=== PATIENT | male | born 1945 | race Caucasian/White ===

== ENCOUNTER → 2017-01-16 | Outpatient (CLI) | payer MEDICARE, BC ==
[2017-01-16 08:35] LABS: CHLORIDE,CL 104 mmol/L (98-110); SODIUM,NA 142 mmol/L (136-146)
== END ==
LOC: MW.CHFP 07:40
PROVIDERS: ATTEND Student in an Organized Health Care Education/Training Program
DX: I10 Essential (primary) hypertension (principal); E78.00 Pure hypercholesterolemia, unspecified; M89.662 Osteopathy after poliomyelitis, left lower leg; B91 Sequelae of poliomyelitis
CPT/HCPCS: 36415; 80053; 80061; 99214

== ENCOUNTER 2018-04-21 06:39 | Inpatient (IN) | payer MEDICARE, BC ==
[2018-04-21] MEDS ORDERED: Midazolam 1 MG/ML 2 ML SDV ONE (07:23)
[2018-04-21] MEDS ORDERED: Lidocaine 2% 5 ML SDV ONE (07:23)
[2018-04-21] MEDS ORDERED: Propofol 200 MG/20 ML SDV ONE (07:23)
[2018-04-21] MEDS ORDERED: fentaNYL 250 MCG/5 ML SDV ONE (07:24)
[2018-04-21] MEDS ORDERED: Sugammadex Sodium 200 MG/2 ML VIAL ONE (07:33)
[2018-04-21] MEDS ORDERED: Ondansetron 4 MG/2 ML SDV ONE (07:36)
[2018-04-21] MEDS ORDERED: Rocuronium 10 MG/ML 10 ML Syringe ONE (07:36)
[2018-04-21] MEDS: Lactated Ringers 1,000 ML IV SCH ×3 (07:36→19:22)
--- NOTE | 2018-04-21 07:37 | PCM.PREANE ---
Preanesthetic Assessment - Anesthesia/Transfusion/Family Hx Anesthesia History: Prior Anesthesia Without Reaction Family History of Anesthesia Reaction: No Transfusion History: No Prior Transfusion(s) Intubation History: Unknown - Review of Systems General: No Symptoms Pulmonary: No Symptoms Cardiovascular: No Symptoms Gastrointestinal: No Symptoms Neurological: No Symptoms Other: Reports: None - Physical Assessment Height: 1.68 m Weight: 102.058 kg ASA Class: 2 Mental Status: Alert & Oriented x3 Airway Class: Mallampati = 2 Dentition: Reports: Dentures (upper and lower) Thyro-Mental Finger Breadths: 3 Mouth Opening Finger Breadths: 3 ROM/Head Extension: Limited/Partial Lungs: Clear to Auscultation, Normal Respiratory Effort Cardiovascular: Regular Rate, Regular Rhythm - Allergies Allergies/Adverse Reactions: Allergies Allergy/AdvReac Type Severity Reaction Status Date / Time No Known Allergies Allergy Verified 04/19/18 11:01 - Blood Blood Available: No - Anesthesia Plan Pre-Op Medication Ordered: None - Acknowledgements Anesthesia Type Planned: Spinal (with general anesthesia) Pt an Appropriate Candidate for the Planned Anesthesia: Yes Alternatives and Risks of Anesthesia Discussed w Pt/Guardian: Yes Pt/Guardian Understands and Agrees with Anesthesia Plan: Yes PreAnesthesia Questionnaire HEENT History: Reports: Other (See Below) Other HEENT History: wears glasses, has dentures but does not wear them Cardiovascular History: Reports: High Cholesterol, Hypertension Respiratory History: Reports: Other (See Below) Other Respiratory History: 60 yr hx of smoking, currently smokes 1 pack of cigarettes per day Gastrointestinal History: Reports: None Musculoskeletal History: Reports: Arthritis, Fracture Other Musculoskeletal History: hx fx rt ankle Neurological History: Reports: Other (See Below) (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, 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) Endocrine/Metabolic History: Reports: Obesity/BMI 30+ - Past Surgical History Head Surgeries/Procedures: Reports: None GI Surgical History: Reports: Appendectomy Neurological Surgical History: Reports: C-Spine Other Neurological Surgeries/Procedures: hx neck surgery Musculoskeletal Surgical History: Reports: Other (See Below) Other Musculoskeletal Surgeries/Procedures:: hx left knee surgery - SUBSTANCE USE Smoking Status *Q: Current Every Day Smoker (1 ppd) Tobacco Use Within Last Twelve Months: Cigarettes Recreational Drug Use History: No - HOME MEDS Home Medications: Home Meds Acetaminophen with Codeine [Acetaminophen-Cod #4] 1 - 2 tab PO ASDIRECTED PRN [History] Aspirin [[place] Aspirin] 81 mg PO DAILY 04/19/18 [History] Celecoxib 1 tab PO DAILY 04/19/18 [History] Enalapril/Hydrochlorothiazide [Enalapril-HCTZ 10-25 MG] 1 tab PO DAILY 04/19/18 [History] Multivitamin [Multivitamins] 1 tab PO DAILY 04/19/18 [History] Simvastatin [Zocor] 40 mg PO DAILY 04/19/18 [History] - CURRENT (IN HOUSE) MEDS Current Meds: Current Medications Lactated Ringer's (Ringers, Lactated) 1,000 mls @ 125 mls/hr IV ASDIRECTED [facility] Cefazolin Sodium/Dextrose 2 gm (/ Premix) 50 mls @ 50 mls/hr IV ONETIME [facility] Tranexamic Acid (Cyklokapron) 2,000 mg IV ONETIME ONE Stop: 04/21/18 08:01 Discontinued Medications Fentanyl (Sublimaze) Confirm Administered Dose 250 mcg .ROUTE .STK-MED ONE Stop: 04/21/18 07:25 Lidocaine (Xylocaine-Mpf 2%) Confirm Administered Dose 10 ml .ROUTE .STK-MED ONE Stop: 04/21/18 07:24 Midazolam HCl (Versed 1 Mg/Ml) Confirm Administered Dose 2 mg .ROUTE .STK-MED ONE Stop: 04/21/18 07:24 Propofol (Diprivan 20 Ml) Confirm Administered Dose 400 mg .ROUTE .STK-MED ONE Stop: 04/21/18 07:24 Tranexamic Acid (Cyklokapron) Confirm Administered Dose 2,000 mg .ROUTE .STK- MED ONE Stop: 04/21/18 07:24
[2018-04-21] MEDS ORDERED: ePHEDrine 50 MG/ML SDV ONE ×2 (08:37→10:53)
[2018-04-21] MEDS ORDERED: fentaNYL 100 MCG/2 ML SDV IVPUSH PRN (08:49)
[2018-04-21] MEDS ORDERED: ceFAZolin/Dextrose,Iso-Osmotic 2 GM/50 ML Duplex Bag IV ONE (08:58)
--- NOTE | 2018-04-21 09:27 | PCM.OPNOTE ---
- General Post-Op/Procedure Note Date of Surgery/Procedure: 04/21/18 Operative Procedure(s): left anterior total hip arthroplasty Findings: severe OA Pre Op Diagnosis: left hip osteoarthritis Post-Op Diagnosis: same Anesthesia Technique: General ET Tube, Spinal Primary Surgeon: Jaime Garcia Mai Manager Medicare: Elke Sheriff Pathology: femoral head EBL in mLs: 400 Complications: none Condition: Good
[2018-04-21] MEDS ORDERED: Bisacodyl 10 MG Supp RECTAL PRN (09:44)
[2018-04-21] MEDS ORDERED: Ondansetron 4 MG/2 ML SDV IV PRN (09:44)
[2018-04-21] MEDS ORDERED: Dermabond Prineo 1 Tube TOP ONE (11:07)
[2018-04-21] MEDS ORDERED: Glycopyrrolate 0.2 MG/ML SDV ONE (11:10)
[2018-04-21] MEDS: Acetaminophen/HYDROcodone 325-5 MG Tab PO PRN ×3 (12:30→22:27)
--- NOTE | 2018-04-21 13:14 | OR ---
SURGEON: Jaime Carroll MD DATE OF PROCEDURE: 04/21/2018 MACHINERY MOVER: Elke Sheriff PA-C. PREOPERATIVE DIAGNOSIS: Left hip osteoarthritis. POSTOPERATIVE DIAGNOSIS: Left hip osteoarthritis. OPERATION PERFORMED: Left anterior total hip arthroplasty. ANESTHESIA: Spinal and general. COMPLICATION: None. ESTIMATED BLOOD LOSS: 400 mL. SPECIMENS: Femoral head. IMPLANTS: Tan Continuum trabecular metal shell with cluster holes, 56 mm outer diameter; one 6.5 x 30 mm bone screw, Vivacit-E neutral liner 36 mm inner diameter, Avenir Ribeiro stem standard size 5, Biolox delta ceramic femoral head 36 mm diameter, 0 neck length. 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 He wished to undergo total hip replacement. He understands the risks, benefits, and complications to include but not limited to infection, neurovascular injury, continued pain, DVT, PE, stroke, UT, , leg-length discrepancy, fracture, dislocation, he wished to proceed. His left leg is due to previous surgery on the knee, much shorter than the right leg and he wished to have it lengthened. This will be done under a safe amounts. PROCEDURE IN DETAIL: The patient was seen in preop area, operative extremity was marked. The patient was transferred to the operating room. Spinal anesthetic was given. He was placed supine on the Delgado table. General anesthesia was induced. Endotracheal tube was placed. He received preop antibiotics with Ancef. He also received 2 g of TXA. Legs were placed in the leg bars with a narrow perineal post. Left hip was prepped and draped in sterile fashion using alcohol followed by ChloraPrep with Ioban covering. A formal time-out was taken, identifying the correct patient, procedure, and extremity. A 10-cm incision starting lateral to the ASIS going obliquely down to the femur was made. Dissection carried down to subcutaneous tissues. Hemostasis was obtained. The fascia overlying the TFL lateral to the lateral femoral cutaneous nerve was opened and the interval between the TFL and sartorius, deep between abductors and rectus was opened. A deep Rene retractor was placed. The vastus lateralis fascia was opened and the anterior vessels were coagulated. The capsule was held and tagged with suture and then deep retractor was placed. Neck was cut from saddle region 1 cm above lesser trochanter and the head was removed. He had severe arthritis with complete obliteration of joint space. Inferior capsule was released preserving the iliopsoas tendon and the labral remnants were removed. There was no Pulvinar remaining. The head measured about 51, it was sequentially reamed from a 51 up to 55 mm going slightly superior medial to get good fit and fill. There was excellent fill. The bed was planed to make sure it was level. Then Continuum trabecular metal shell with cluster holes was placed in 10 degrees of anteversion and 45 degrees of abduction. It had excellent press fit. One straight superior bone screw was placed 30 mm after drilling. The wound was irrigated and dried out. The neutral liner was impacted. Leg was then externally rotated, abducted, and extended after placing the femoral lift. Superior capsule, obturator internus, and piriformis were released. Central canal finder was utilized and the hip was sequentially broached from 0 up to size 5 following the [place] version. It was trial reduced with 0 neck length. This showed the hip to be at least 1 cm longer by design to shorten his leg length and offset looked good. Due to deformity of the pelvis, printed overlay technique was not utilized. It was then dislocated after it was ranged. It was stable to range of motion with no dislocation in any position. Hip displaced in same position, the trial components were utilized and wound was irrigated. Avenir Ribeiro stem standard size 5 was impacted following the [place] version. It went down to almost the same spot as the trial and then after cleaning the Nevarez taper, the ceramic head was impacted 0 neck length. Hip was then reduced. Two tag sutures were tied together. The fascia was closed with #1 Vicryl, subcutaneous tissues with 2-0 Stratafix, skin with running 4-0 Monocryl. Dermabond tape and Aquacel dressing were placed. The patient was extubated in the operating room, transferred to the recovery in stable condition. Sponge and needle counts correct at the end of case. No complications. He will be allowed weightbearing as tolerated with aspirin for DVT prophylaxis. JULISSA BALDERAS /[id number]
[2018-04-21] MEDS: HYDROmorphone 1 MG/ML Syringe IVPUSH PRN ×2 (15:25→21:34)
[2018-04-21] MEDS: ceFAZolin 2 GM in Premix Bag 1 BAG IV SCH ×3 (15:33→23:36)
--- NOTE | 2018-04-21 16:17 | CR ---
EXAMINATION: Left hip HISTORY: Arthroplasty COMPARISON: 04/19/2018 TECHNIQUE: Single view FINDINGS/IMPRESSION: Operative control films demonstrates left total hip hardware in adequate positio n and alignment.
[2018-04-21] MEDS: Hydrochlorothiazide 25 MG Tab PO SCH (17:26)
[2018-04-21] MEDS: Docusate Sodium 100 MG Cap PO SCH (21:56)
[2018-04-21] MEDS ORDERED: Ketorolac 15 MG/ML SDV IVPUSH PRN (23:06)
[2018-04-22] MEDS: ceFAZolin 2 GM in Premix Bag 1 BAG IV SCH (01:23)
[2018-04-22] MEDS: Acetaminophen/HYDROcodone 325-5 MG Tab PO PRN ×2 (03:40→09:00)
[2018-04-22] MEDS: Lactated Ringers 1,000 ML IV SCH (03:44)
[2018-04-22] MEDS: HYDROmorphone 1 MG/ML Syringe IVPUSH PRN (06:47)
[2018-04-22] MEDS ORDERED: Sodium Chloride 0.9% 10 ML Syringe FLUSH PRN (06:56)
[2018-04-22] MEDS ORDERED: Sodium Chloride 0.9% 2.5 ML Syringe FLUSH PRN (06:56)
--- NOTE | 2018-04-22 06:59 | PCM.SN ---
- Free Text/Narrative Note: Subjective: Patient is doing well and he has been up numerous times. He is tolerating by mouth. His pain is controlled. No other questions. Objective: Afebrile, vital signs stable Left hip dressing clean/dry/intact with some swelling in the thigh and normal amount for him distally. There is no drainage. He has normal sensation and motor distally with palpable pulses Hgb 11.0 Assessment/plan: Postoperative day #1 left hip replacement - Weightbearing as tolerated with his normal crutches, physical therapy - Ecotrin for DVT prophylaxis - To home today.
--- NOTE | 2018-04-22 07:02 | PCM48HPAN ---
Post Anesthesia Note - EVALUATION WITHIN 48HRS OF ANESTHETIC Vital Signs in Normal Range: Yes Patient Participated in Evaluation: Yes Respiratory Function Stable: Yes Airway Patent: Yes Cardiovascular Function Stable: Yes Hydration Status Stable: Yes Pain Control Satisfactory: Yes Nausea and Vomiting Control Satisfactory: Yes Mental Status Recovered: Yes Resp Rate: 20 Blood Pressure: 144/83
--- NOTE | 2018-04-22 07:08 | PCM.DCSUM1 ---
Discharge Summary - Hospital Course Brief History: Patient is admitted for elective left total hip arthroplasty Diagnosis: Stroke: No - Discharge Data Discharge Date: 04/22/18 Discharge Disposition: Home, Self-Care 01 Condition: Good - Patient Summary/Data Operative Procedure(s) Performed: left anterior total hip arthroplasty Consults: Consultations 04/21/18 09:42 PT Evaluation and Treatment [CONS] Routine Hospital Course: Patient was admitted and underwent uneventful total hip arthroplasty. Postoperatively he was admitted to the floor underwent physical therapy with weightbearing as tolerated. Pain was controlled and his diet was advanced he did well and was subsequently discharged home on postoperative day #1 - Patient Instructions Diet: Usual Diet as Tolerated Activity: Apply Ice, Full Weight Bearing Driving: Do Not Drive Showering/Bathing: February Shower Wound/Incision Care: Do NOT Change Dressing Notify Provider of: Fever, Swelling and Redness, Drainage - Discharge Plan Home Medications: Home Meds Acetaminophen with Codeine [Acetaminophen-Cod #4] 1 - 2 tab PO ASDIRECTED PRN [History] Aspirin [[place] Aspirin] 81 mg PO DAILY 04/19/18 [History] Celecoxib 1 tab PO DAILY 04/19/18 [History] Enalapril/Hydrochlorothiazide [Enalapril-HCTZ 10-25 MG] 1 tab PO DAILY 04/19/18 [History] Multivitamin [Multivitamins] 1 tab PO DAILY 04/19/18 [History] Simvastatin [Zocor] 40 mg PO DAILY 04/19/18 [History] Patient Handouts: Acetaminophen; Hydrocodone tablets or capsules, Aspirin, ASA oral tablets, Total Hip Replacement, Care After, [id number] Referrals: Elke Sheriff PA [Physician Wheel [employer]orer] - 05/04/18 10:00 am - Discharge Summary/Plan Comment DC Time >30 min.: No - Patient Data Vitals - Most Recent: Last Vital Signs Temp 36.2 C 04/22/18 05:36 Pulse 98 04/22/18 05:36 Resp 20 04/22/18 07:02 BP 144/83 H 04/22/18 07:02 Pulse Ox 90 L 04/22/18 05:36 Weight - Most Recent: 102.058 kg I&O - Last 24 hours: Intake & Output 04/21/18 04/22/18 04/22/18 22:59 06:59 14:59 Intake Total 1642 2290 Output Total 0 1020 Balance 1642 1270 Lab Results - Last 24 hrs: Laboratory Results - last 24 hr 04/21/18 04/22/18 Range/Units 07:23 05:13 Hgb 11.0 L (13.0-17.0) g/dL Hct 33.8 L (38.0-50.0) % Blood Type A POSITIVE Antibody Screen NEGATIVE Med Orders - Current: Current Medications Hydrocodone Bitart/Acetaminophen ([place] 325-5 Mg) 1 - 2 tab PO Q4H PRN PRN Reason: Pain Last Admin: 04/22/18 03:40 Dose: 2 tab Aspirin (Ecotrin) 325 mg PO BID [facility] Bisacodyl (Dulcolax) 10 mg RECTAL DAILY PRN PRN Reason: Constipation Celecoxib (Celebrex) 200 mg PO DAILY [facility] Docusate Sodium (Colace) 100 mg PO BID [facility] Last Admin: 04/21/18 21:56 Dose: 100 mg Enalapril Maleate (Vasotec) 10 mg PO DAILY [facility] Last Admin: 04/21/18 17:26 Dose: 10 mg Fentanyl (Sublimaze) 50 mcg IVPUSH Q5M PRN PRN Reason: Pain (severe 7-10) Stop: 04/22/18 08:49 Hydrochlorothiazide (Hydrochlorothiazide) 25 mg PO DAILY [facility] Hydrochlorothiazide (Hydrochlorothiazide) 25 mg PO DAILY [facility] Last Admin: 04/21/18 17:26 Dose: 25 mg Hydromorphone HCl (Dilaudid) 0.5 - 1 mg IVPUSH Q3H PRN PRN Reason: Pain Last Admin: 04/22/18 06:47 Dose: 1 mg Lactated Ringer's (Ringers, Lactated) 1,000 mls @ 125 mls/hr IV ASDIRECTED [facility] Last Admin: 04/22/18 03:44 Dose: 125 mls/hr Cefazolin Sodium/Dextrose 2 gm (/ Premix) 50 mls @ 50 mls/hr IV ONETIME [facility] Last Infusion: 04/22/18 00:10 Dose: Infused Ketorolac Tromethamine (Toradol) 30 mg IVPUSH Q8H PRN PRN Reason: Pain Stop: 04/26/18 23:06 Last Admin: 04/21/18 23:32 Dose: 30 mg Multivitamins/Minerals (Thera M Plus) 1 tab PO DAILY [facility] Ondansetron HCl (Zofran) 4 mg IV Q6HR PRN PRN Reason: NAUSEA/VOMITING Simvastatin (Zocor) 40 mg PO BEDTIME [facility] Sodium Chloride (Saline Flush) 10 ml FLUSH ASDIRECTED PRN PRN Reason: Keep Vein Open Sodium Chloride (Saline Flush) 2.5 ml FLUSH ASDIRECTED PRN PRN Reason: Keep Vein Open Discontinued Medications Cefazolin Sodium/Dextrose (Ancef) Confirm Administered Dose 2 gm IV .STK-MED ONE Stop: 04/21/18 08:59 Enalapril Maleate (Vasotec) 10 mg PO DAILY [facility] Ephedrine Sulfate (Ephedrine Sulfate) Confirm Administered Dose 50 mg .ROUTE .STK-MED ONE Stop: 04/21/18 08:38 Ephedrine Sulfate (Ephedrine Sulfate) Confirm Administered Dose 50 mg .ROUTE .STK-MED ONE Stop: 04/21/18 10:54 Fentanyl (Sublimaze) Confirm Administered Dose 250 mcg .ROUTE .STK-MED ONE Stop: 04/21/18 07:25 Glycopyrrolate (Robinul) Confirm Administered Dose 0.2 mg .ROUTE .STK-MED ONE Stop: 04/21/18 11:11 Cefazolin Sodium/Dextrose 2 gm (/ Premix) 50 mls @ 100 mls/hr IV Q8H [facility] Stop: 04/22/18 00:29 Last Admin: 04/22/18 01:23 Dose: Not Given Lidocaine (Xylocaine-Mpf 2%) Confirm Administered Dose 10 ml .ROUTE .STK-MED ONE Stop: 04/21/18 07:24 Midazolam HCl (Versed 1 Mg/Ml) Confirm Administered Dose 2 mg .ROUTE .STK-MED ONE Stop: 04/21/18 07:24 Octyl Cyanoacrylate (Dermabond Prineo) 1 applic TOP .STK-MED ONE Stop: 04/21/18 11:08 Ondansetron HCl (Zofran) Confirm Administered Dose 4 mg .ROUTE .STK-MED ONE Stop: 04/21/18 07:37 Propofol (Diprivan 20 Ml) Confirm Administered Dose 400 mg .ROUTE .STK-MED ONE Stop: 04/21/18 07:24 Rocuronium [place] (Zemuron) Confirm Administered Dose 100 mg .ROUTE .STK-MED ONE Stop: 04/21/18 07:37 Sugammadex Sodium ([place]) Confirm Administered Dose 200 mg .ROUTE .STK-MED ONE Stop: 04/21/18 07:34 Tranexamic Acid (Cyklokapron) 2,000 mg IV ONETIME ONE Stop: 04/21/18 08:01 Last Admin: 04/21/18 10:41 Dose: Not Given Tranexamic Acid (Cyklokapron) Confirm Administered Dose 2,000 mg .ROUTE .STK- MED ONE Stop: 04/21/18 07:24
[2018-04-22 08:52] VITALS: BP 151/64
[2018-04-22] MEDS: Docusate Sodium 100 MG Cap PO SCH (08:55)
[2018-04-22] MEDS: Hydrochlorothiazide 25 MG Tab PO SCH (08:55)
[2018-04-22] MEDS ORDERED: Hydrochlorothiazide 25 MG Tab PO SCH (09:00)
[2018-04-22] MEDS ORDERED: Celecoxib 100 MG Cap PO SCH (09:00)
[2018-04-22] MEDS ORDERED: Aspirin 325 MG Tab.EC PO SCH (09:00)
[2018-04-22] MEDS ORDERED: Multivitamins with Iron/Calcium/Folic Acid/Minerals Tab PO SCH (09:00)
[2018-04-22] MEDS ORDERED: Simvastatin 40 MG Tab PO SCH (21:00)
== END 2018-04-22 10:46 | disposition home or self-care (01) | DRG 470 ==
LOC: MW.MS 06:39
PROVIDERS: ADMIT Orthopaedic Surgery; ATTEND Orthopaedic Surgery
PROC: 0SRB0JA Replacement of Left Hip Joint with Synthetic Substitute, Uncemented, Open Approach (ICD-10-PCS; principal; 2018-04-21)
DX: M16.12 Unilateral primary osteoarthritis, left hip (principal); I10 Essential (primary) hypertension; E78.00 Pure hypercholesterolemia, unspecified; M89.662 Osteopathy after poliomyelitis, left lower leg; M89.661 Osteopathy after poliomyelitis, right lower leg; B91 Sequelae of poliomyelitis; F17.210 Nicotine dependence, cigarettes, uncomplicated; Z79.899 Other long term (current) drug therapy
CPT/HCPCS: 36415; 76000; 76000-26; 85014; 85018; 86850; 86900; 86901; 97110-GP; 97162-GP; A9270-GY; C1713; C1776; J0690; J1170; J1885; J2250; J2405; J2704; J3010; J3490; J7120

== ENCOUNTER 2019-06-17 20:22 | Observation (INO) | payer MEDICARE, BC ==
[2019-06-17] MEDS ORDERED: Aspirin 81 MG Tab.Chew ONE (20:28)
[2019-06-17] MEDS ORDERED: Sodium Chloride 0.9% 2.5 ML Syringe FLUSH PRN (20:29)
[2019-06-17] MEDS ORDERED: Sodium Chloride 0.9% 1,000 ML IV ONE (20:29)
[2019-06-17] MEDS ORDERED: Sodium Chloride 0.9% 10 ML Syringe FLUSH PRN (20:29)
[2019-06-17] MEDS ORDERED: Aspirin 81 MG Tab.Chew PO ONE (20:30)
--- NOTE | 2019-06-17 20:35 | EDM.PDOC ---
ED HPI GENERAL MEDICAL PROBLEM - General Chief Complaint: Chest Pain Stated Complaint: CHEST PAIN Time Seen by Provider: 06/17/19 20:29 Source of Information: Reports: Patient History Limitations: Reports: No Limitations - History of Present Illness INITIAL COMMENTS - FREE TEXT/NARRATIVE: HISTORY AND PHYSICAL: History of present illness: Patient is a 73-year-old male who presents to the ED today with concern of mid sternal chest pain approximately an hour and a half ago that it started when he was smoking a cigarette. Patient rates his chest pain an 8 out of 10 and states nothing is making it worse or better. Patient also states that he is having right upper quadrant pain that he rates a 7 out of 10. Patient states he has had 2 episodes of vomiting earlier today in relation to the abdominal pain. He states he does feel nauseous and has had a decrease in appetite today. Patient states he did have a "heart attack" when he was 35 years old but did not have a stent placed or bypass and states he was managed medically. Patient states he smokes 2-1/2 packs of cigarettes a day and has so since he was a teenager. Patient denies fever, chills, chest pain, shortness of breath, or cough. Denies headache, neck stiff ness, change in vision, syncope, or near syncope. Denies diarrhea, constipation, or dysuria. Has not noted any blood in urine or stool. Review of systems: As per history of present illness and below otherwise all systems reviewed and negative. Past medical history: As per history of present illness and as reviewed below otherwise noncontributory. Surgical history: As per history of present illness and as reviewed below otherwise noncontributory. Social history: See social history for further information Family history: As per history of present illness and as reviewed below otherwise noncontributory. Physical exam: General: Patient is alert, oriented, and in no acute distress. Patient sitting comfortably on exam table. HEENT: Atraumatic, normocephalic, pupils equal and reactive bilaterally, negative for conjunctival pallor or scleral icterus, mucous membranes moist, TMs normal bilaterally, throat clear, neck supple, nontender, trachea midline. No drooling or trismus noted. No meningeal signs. No hot potato voice noted. Lungs: Course crackles in the right lung molina, diffuse wheezing to bilateral lung molina to auscultation, breath sounds equal bilaterally, chest nontender. Heart: S1S2, regular rate and rhythm without overt murmur Abdomen: Soft, distended. Moderate pain to palpation of the right upper quadrant without guarding. Negative for masses or hepatosplenomegaly. Negative for costovertebral tenderness. Pelvis: Stable nontender. Genitourinary: Deferred. Rectal: Deferred. Skin: Intact, warm, dry. No lesions or rashes noted. Extremities: Atraumatic, negative for cords or calf pain. Neurovascular unremarkable. Neuro: Awake, alert, oriented. Cranial nerves II through XII unremarkable. Cerebellum unremarkable. Motor and sensory unremarkable throughout. Exam nonfocal. Notes: Chest pain remains an 8 out of [address] Culp consult on patient and will admit to observation. Voices understanding and is agreeable to plan of care. Denies any further questions or concerns at this time. Diagnostics: CBC, CMP, UA, EKG, troponin, lipase, chest x-ray, abdominal pelvic CT, PTT/INR, RUQ US Therapeutics: ASA, DuoNeb, Solu-Medrol, nitroglycerin, morphine azithromycin, Rocephin, Saline , Lactate, Blood cultures x 2 Impression: Community acquired pneumonia, multilobular Chest pain Gallbladder distention Plan: 1. Admit to observation to Dr. Culp. Definitive disposition and diagnosis as appropriate pending reevaluation and review of above. Middle Chest Pain Score (Numeric/FACES): 9 - Related Data Allergies Allergy/AdvReac Type Severity Reaction Status Date / Time celecoxib [From Celebrex] Allergy Rash Verified 06/17/19 23:04 Home Meds: Home Meds Aspirin [[place] Aspirin EC] 81 mg PO DAILY 04/19/18 [History] Celecoxib 1 tab PO DAILY 04/19/18 [History] Enalapril/Hydrochlorothiazide [Enalapril-HCTZ 10-25 MG] 1 tab PO DAILY 04/19/18 [History] Multivitamin [Multivitamins] 1 tab PO DAILY 04/19/18 [History] Omeprazole Magnesium [Prilosec] 2.5 mg PO BID 06/17/19 [History] Past Medical History HEENT History: Reports: Other (See Below) Other HEENT History: wears glasses, has dentures but does not wear them Cardiovascular History: Reports: High Cholesterol, Hypertension Respiratory History: Reports: Other (See Below) Other Respiratory History: 60 yr hx of smoking, currently smokes 1 pack of cigarettes per day Gastrointestinal History: Reports: None Other Gastrointestinal History: Current C-diff Musculoskeletal History: Reports: Arthritis, Fracture Other Musculoskeletal History: hx fx rt ankle Neurological History: Reports: Other (See Below) Endocrine/Metabolic History: Reports: Obesity/BMI 30+ - Infectious Disease History Infectious Disease History: Reports: Chicken Pox, Measles, Mumps - Past Surgical History Head Surgeries/Procedures: Reports: None GI Surgical History: Reports: Appendectomy Neurological Surgical History: Reports: C-Spine Other Neurological Surgeries/Procedures: hx neck surgery Musculoskeletal Surgical History: Reports: Hip Replacement, Other (See Below) Other Musculoskeletal Surgeries/Procedures:: hx left knee surgery Social & Family History - Family History Family Medical History: Noncontributory - Tobacco Use Smoking Status *Q: Current Every Day Smoker Years of Tobacco use: 60 Packs/Tins Daily: 1 - Caffeine Use Caffeine Use: Reports: Coffee - Recreational Drug Use Recreational Drug Use: No ED ROS GENERAL - Review of Systems Review Of Systems: ROS reveals no pertinent complaints other than HPI. ED EXAM, GENERAL - Physical Exam Exam: See Below (see dictation) Course - Vital Signs Last Recorded V/S: Last Vital Signs Temp 35.4 C 06/17/19 20:24 Pulse 88 06/17/19 22:35 Resp 20 06/17/19 22:35 BP 128/92 H 06/17/19 22:35 Pulse Ox 95 06/17/19 22:35 - Orders/Labs/Meds Orders: Active Orders 24 hr Category Date Time Status EKG Documentation Completion [RC] STAT Care 06/17/19 20:29 Active CULTURE BLOOD [BC] Stat Lab 06/17/19 21:44 Received CULTURE BLOOD [BC] Stat Lab 06/17/19 22:13 Received Azithromycin [Zithromax] 500 mg Med 06/17/19 21:15 Active Sodium Chloride 0.9% [Normal Saline (AdvBag)] 250 ml IV ONETIME Sodium Chloride 0.9% [Saline Flush] Med 06/17/19 20:29 Active 10 ml FLUSH ASDIRECTED PRN Sodium Chloride 0.9% [Saline Flush] Med 06/17/19 20:29 Active 2.5 ml FLUSH ASDIRECTED PRN Blood Culture x2 Reflex Set [OM.PC] Stat Oth 06/17/19 21:27 Ordered Saline Lock Insert [OM.PC] Stat Oth 06/17/19 20:29 Ordered Medication Orders Acetaminophen (Tylenol) 650 mg PO Q6H PRN PRN Reason: Pain Azithromycin 500 mg/ Sodium (Chloride) 250 mls @ 250 mls/hr IV ONETIME SYMONE Last Admin: 06/17/19 22:34 Dose: 250 mls/hr Sodium Chloride (Normal Saline) 1,000 mls @ 100 mls/hr IV ASDIRECTED SYMONE Last Admin: 06/17/19 23:45 Dose: 100 mls/hr Oxycodone HCl (Oxycodone) 5 mg PO Q4H PRN PRN Reason: Pain (moderate 4-6) Sodium Chloride (Saline Flush) 10 ml FLUSH ASDIRECTED PRN PRN Reason: Keep Vein Open Last Admin: 06/17/19 20:47 Dose: 10 ml Sodium Chloride (Saline Flush) 2.5 ml FLUSH ASDIRECTED PRN PRN Reason: Keep Vein Open Last Admin: 06/17/19 20:47 Dose: 2.5 ml Labs: Laboratory Tests 06/17/19 06/17/19 06/17/19 Range/Units 20:25 20:25 20:25 WBC 11.56 H (4.0-11.0) K/uL RBC 4.40 L (4.50-5.90) M/uL Hgb 12.9 L (13.0-17.0) g/dL Hct 39.4 (38.0-50.0) % MCV 89.5 (80.0-98.0) fL MCH 29.3 (27.0-32.0) pg MCHC 32.7 (31.0-37.0) g/dL RDW Std Deviation 51.6 (28.0-62.0) fl RDW Coeff of Ovi 16 H (11.0-15.0) % Plt Count 344 (150-400) K/uL MPV 10.70 (7.40-12.00) fL Neut % (Auto) 66.4 (48.0-80.0) % Lymph % (Auto) 24.8 (16.0-40.0) % Cherry % (Auto) 7.3 (0.0-15.0) % Eos % (Auto) 1.2 (0.0-7.0) % Baso % (Auto) 0.3 (0.0-1.5) % Neut # (Auto) 7.7 H (1.4-5.7) K/uL Lymph # (Auto) 2.9 H (0.6-2.4) K/uL Cherry # (Auto) 0.8 (0.0-0.8) K/uL Eos # (Auto) 0.1 (0.0-0.7) K/uL Baso # (Auto) 0.0 (0.0-0.1) K/uL Nucleated RBC % 0.0 /100WBC Nucleated RBCs # 0 K/uL INR 0.97 Sodium 134 L (136-148) mmol/L Potassium 3.3 L (3.5-5.1) mmol/L Chloride 96 L (98-107) mmol/L Carbon Dioxide 27.8 (21.0-32.0) mmol/L BUN 22 H (7.0-18.0) mg/dL Creatinine 1.3 (0.8-1.3) mg/dL Est Cr Clr Drug Dosing TNP Estimated GFR (MDRD) 54.1 ml/min Glucose 181 H (74-106) mg/dL Calcium 9.8 (8.5-10.1) mg/dL Total Bilirubin 0.3 (0.2-1.0) mg/dL AST 47 H (15-37) IU/L ALT 36 (14-63) IU/L Alkaline Phosphatase 117 H (46-116) U/L Troponin I < 0.050 (0.000-0.056) ng/mL Total Protein 7.2 (6.4-8.2) g/dL Albumin 3.2 L (3.4-5.0) g/dL Globulin 4.0 (2.6-4.0) g/dL Albumin/Globulin Ratio 0.8 L (0.9-1.6) Lipase (73-393) U/L 06/17/19 Range/Units 20:25 WBC (4.0-11.0) K/uL RBC (4.50-5.90) M/uL Hgb (13.0-17.0) g/dL Hct (38.0-50.0) % MCV (80.0-98.0) fL MCH (27.0-32.0) pg MCHC (31.0-37.0) g/dL RDW Std Deviation (28.0-62.0) fl RDW Coeff of Ovi (11.0-15.0) % Plt Count (150-400) K/uL MPV (7.40-12.00) fL Neut % (Auto) (48.0-80.0) % Lymph % (Auto) (16.0-40.0) % Cherry % (Auto) (0.0-15.0) % Eos % (Auto) (0.0-7.0) % Baso % (Auto) (0.0-1.5) % Neut # (Auto) (1.4-5.7) K/uL Lymph # (Auto) (0.6-2.4) K/uL Cherry # (Auto) (0.0-0.8) K/uL Eos # (Auto) (0.0-0.7) K/uL Baso # (Auto) (0.0-0.1) K/uL Nucleated RBC % /100WBC Nucleated RBCs # K/uL INR Sodium (136-148) mmol/L Potassium (3.5-5.1) mmol/L Chloride (98-107) mmol/L Carbon Dioxide (21.0-32.0) mmol/L BUN (7.0-18.0) mg/dL Creatinine (0.8-1.3) mg/dL Est Cr Clr Drug Dosing Estimated GFR (MDRD) ml/min Glucose (74-106) mg/dL Calcium (8.5-10.1) mg/dL Total Bilirubin (0.2-1.0) mg/dL AST (15-37) IU/L ALT (14-63) IU/L Alkaline Phosphatase (46-116) U/L Troponin I (0.000-0.056) ng/mL Total Protein (6.4-8.2) g/dL Albumin (3.4-5.0) g/dL Globulin (2.6-4.0) g/dL Albumin/Globulin Ratio (0.9-1.6) Lipase 162 (73-393) U/L Meds: Medications Generic Name Dose Route Start Last Admin Trade Name Justinq PRN Reason Stop Dose Admin Acetaminophen 650 mg 06/17/19 23:18 Tylenol PO Q6H PRN Pain Azithromycin 500 mg/ Sodium 250 mls @ 250 mls/hr 06/17/19 21:15 06/17/19 22: 34 Chloride IV 250 mls/hr ONETIME SYMONE Administration Sodium Chloride 1,000 mls @ 100 mls/hr 06/17/19 23:30 06/17/19 23:45 Normal Saline IV 100 mls/hr ASDIRECTED SYMONE Administration Oxycodone HCl 5 mg 06/17/19 23:19 Oxycodone PO Q4H PRN Pain (moderate 4-6) Sodium Chloride 10 ml 06/17/19 20:29 06/17/19 20:47 Saline Flush FLUSH 10 ml ASDIRECTED PRN Administration Keep Vein Open Sodium Chloride 2.5 ml 06/17/19 20:29 06/17/19 20:47 Saline Flush FLUSH 2.5 ml ASDIRECTED PRN Administration Keep Vein Open Discontinued Medications Generic Name Dose Route Start Last Admin Trade Name Justinq PRN Reason Stop Dose Admin Albuterol/Ipratropium 3 ml 06/17/19 20:52 06/17/19 20:58 Duoneb 3.0-0.5 Mg/3 Ml NEB 06/17/19 20:53 3 ml ONETIME ONE Administration Aspirin 324 mg 06/17/19 20:30 06/17/19 20:31 Aspirin PO 06/17/19 20:31 324 mg ONETIME ONE Administration Aspirin Confirm 06/17/19 20:28 06/17/19 20:32 Aspirin Administered 06/17/19 20:29 Not Given Dose 324 mg .ROUTE .STK-MED ONE Sodium Chloride 1,000 mls @ 999 mls/hr 06/17/19 20:29 06/17/19 20:39 Normal Saline IV 06/17/19 21:29 999 mls/hr .Bolus ONE Administration Ceftriaxone Sodium 1 gm/ 50 mls @ 100 mls/hr 06/17/19 21:01 06/17/19 21:07 Sodium Chloride IV 06/17/19 21:30 Not Given ONETIME ONE Ceftriaxone Sodium/Dextrose Confirm 06/17/19 21:04 06/17/19 21:07 Rocephin In Dextrose,Iso-Osm 1 Gm/50 Ml Administered 06/17/19 21:05 Not Given Dose 50 mls @ as directed .ROUTE .STK-MED ONE Ceftriaxone Sodium/Dextrose 1 50 mls @ 100 mls/hr 06/17/19 21:07 06/17/19 21: 08 gm/ Premix IV 06/17/19 21:36 100 mls/hr ONETIME ONE Administration Iopamidol 90 ml 06/17/19 21:54 06/17/19 21:55 Isovue-370 (76%) IVPUSH 06/17/19 21:55 90 ml ONETIME ONE Administration Methylprednisolone Sodium Succinate 125 mg 06/17/19 20:55 06/17/19 21:00 Solu-Medrol IVPUSH 06/17/19 20:56 125 mg ONETIME ONE Administration Morphine Sulfate 2 mg 06/17/19 21:10 06/17/19 21:16 Morphine IVPUSH 06/17/19 21:11 2 mg ONETIME ONE Administration Nicotine 14 mg 06/17/19 22:20 06/17/19 22:33 Habitrol TRDERM 06/17/19 22:21 14 mg ONETIME ONE Administration Nitroglycerin 0.4 mg 06/17/19 20:35 06/17/19 20:57 Nitrostat SL 06/17/19 20:36 0.4 mg Q5M STA Administration Nitroglycerin Confirm 06/17/19 20:36 06/17/19 20:41 Nitrostat Administered 06/17/19 20:37 Not Given Dose 1.2 mg .ROUTE .STK-MED ONE Departure - Departure Time of Disposition: 21:30 Disposition: Refer to Observation Clinical Impression: Community acquired pneumonia Qualifiers: Laterality: right Lung location: middle lobe of lung Qualified Code(s): J18.1 - Lobar pneumonia, unspecified organism Chest pain Qualifiers: Chest pain type: unspecified Qualified Code(s): R07.9 - Chest pain, unspecified - Discharge Information - My Orders Last 24 Hours: My Active Orders 06/17/19 20:29 EKG Documentation Completion [RC] STAT Sodium Chloride 0.9% [Saline Flush] 10 ml FLUSH ASDIRECTED PRN Sodium Chloride 0.9% [Saline Flush] 2.5 ml FLUSH ASDIRECTED PRN Saline Lock Insert [OM.PC] Stat 06/17/19 21:15 Azithromycin [Zithromax] 500 mg Sodium Chloride 0.9% [Normal Saline (AdvBag)] 250 ml IV ONETIME 06/17/19 21:27 Blood Culture x2 Reflex Set [OM.PC] Stat 06/17/19 21:44 CULTURE BLOOD [BC] Stat 06/17/19 22:13 CULTURE BLOOD [BC] Stat - Assessment/Plan Last 24 Hours: My Active Orders 06/17/19 20:29 EKG Documentation Completion [RC] STAT Sodium Chloride 0.9% [Saline Flush] 10 ml FLUSH ASDIRECTED PRN Sodium Chloride 0.9% [Saline Flush] 2.5 ml FLUSH ASDIRECTED PRN Saline Lock Insert [OM.PC] Stat 06/17/19 21:15 Azithromycin [Zithromax] 500 mg Sodium Chloride 0.9% [Normal Saline (AdvBag)] 250 ml IV ONETIME 06/17/19 21:27 Blood Culture x2 Reflex Set [OM.PC] Stat 06/17/19 21:44 CULTURE BLOOD [BC] Stat 06/17/19 22:13 CULTURE BLOOD [BC] Stat
[2019-06-17] MEDS ORDERED: Nitroglycerin 0.4 MG Tab.SL ONE (20:36)
[2019-06-17] MEDS: Nitroglycerin 0.4 MG Tab.SL SL STA ×3 (20:39→20:57)
[2019-06-17] MEDS ORDERED: Albuterol/Ipratropium 3.0-0.5 MG/3 ML Neb Soln NEB ONE (20:52)
--- NOTE | 2019-06-17 20:53 | CR ---
INDICATION: Chest pain COMPARISON: March 24, 2018. TECHNIQUE: A single AP portable view of the chest was obtained. FINDINGS: The heart is normal in size. The left lung is clear. A right middle lung probably right lower lobe infiltrates are identified. No pleural effusion or pneumothorax is identified. IMPRESSION: Right middle and probably right lower lobe infiltrates Dictated by Mayela Irene MD @ Jun 17 2019 8:50PM Signed by Dr. Mayela Irene @ Jun 17 2019 8:51PM
[2019-06-17] MEDS ORDERED: methylPREDNISolone Sodium Succinate 125 MG/2 ML SDV IVPUSH ONE (20:55)
[2019-06-17 20:56] LABS: CHLORIDE,CL 96 mmol/L (98-107); SODIUM,NA 134 mmol/L (136-148)
[2019-06-17] MEDS ORDERED: cefTRIAXone 1 GM in Sodium Chloride 0.9% 50 ML IV ONE (21:01)
[2019-06-17] MEDS ORDERED: cefTRIAXone 1 GM in Premix Bag 1 BAG IV ONE (21:07)
[2019-06-17] MEDS ORDERED: Morphine 2 MG/ML Syringe IVPUSH ONE (21:10)
[2019-06-17] MEDS ORDERED: Azithromycin 500 MG in Sodium Chloride 0.9% 250 ML IV SCH (21:15)
[2019-06-17] MEDS ORDERED: Iopamidol 755 Mg/ML 100 ML Bottle IVPUSH ONE (21:54)
[2019-06-17] MEDS ORDERED: Nicotine 14 MG/24 Hr Patch TRDERM ONE (22:20)
--- NOTE | 2019-06-17 22:23 | CT ---
INDICATION: Chest pain radiating into abdomen TECHNIQUE: CT Abdomen and pelvis with i.v. contrast. Coronal and sagittal reformats were obtained. CONTRAST: 90 mL Isovue 370 COMPARISON: None FINDINGS: Lower chest: Consolidation of the right middle lobe is present with branching hypodensities in the periphery which may be due to mucous impacted bronchioles. There is a subpleural nodule measuring 1 cm along the lateral right lower lobe. Liver: Unremarkable. Spleen: Unremarkable. Pancreas: Unremarkable. Gallbladder: There is a 2.5 cm gallstone present in the neck of the gallbladder with mild asymmetric wall thickening the gallbladder wall near the fundus and gallbladder distention measuring 5.5 cm. Kidney: Unremarkable. No kidney or ureteral stones or obstruction seen. Adrenal: Unremarkable. Bowel: Severe sigmoid diverticulosis is present with no evidence of diverticulitis. The appendix is not identified. Vascular: Moderate diffuse atherosclerotic calcifications of the abdominal aorta and its tributaries are present. Lymph: Unremarkable. Peritoneum: Unremarkable. No pneumoperitoneum is seen. No significant ascites is noted. Pelvis: Unremarkable. Soft tissue: Diffuse fatty atrophy of the right gluteal and hip girdle musculature seen. Bone: Patient has a left total hip prosthesis. IMPRESSIONS: 1. There is a 2.5 cm gallstone present in the neck of the gallbladder with mild asymmetric wall thickening the gallbladder wall near the fundus and gallbladder distention measuring 5.5 cm. Evaluation with ultrasound may be helpful to exclude cholecystitis. 2. Consolidation of the right middle lobe is present with branching hypodensities in the periphery which may be due to mucous impacted bronchioles. Further evaluation with bronchoscopy is recommended to exclude a central obstructing mass or pneumonia. 3. There is a subpleural nodule measuring 1 cm along the lateral right lower lobe. Dictated by Michael Young MD @ 06/17/2019 10:21:31 PM Please note that all CT scans at this facility use dose modulation, iterative reconstruction, and/or weight-based dosing when appropriate to reduce radiation dose to as low as reasonably achievable. Dictated by: Michael Young MD @ 06/17/2019 22:21:40 (Electronically Signed)
[2019-06-17] MEDS ORDERED: Acetaminophen 325 MG Tab PO PRN (23:18)
[2019-06-17] MEDS ORDERED: oxyCODONE 5 MG Tab PO PRN (23:19)
[2019-06-17] MEDS: Sodium Chloride 0.9% 1,000 ML IV SCH (23:45)
--- NOTE | 2019-06-18 00:23 | US ---
INDICATION: Abdominal pain TECHNIQUE: Ultrasound abdomen limited. Sonographic images of the right upper quadrant were obtained using tinoco-scale and color Doppler images. COMPARISON: CT 06/17/2019 FINDINGS: Liver: The liver parenchyma is normal in echotexture. Gallbladder: The gallbladder wall is near the upper limits of normal measuring 4 mm. There is a 2.4 cm gallstone seen in the gallbladder neck. A small amount of sludge is present within the gallbladder. No pericholecystic fluid is present. Sonographic Levy sign was reported by the school social worker. Common bile duct: 7 mm. No intrahepatic biliary ductal dilatation seen. Pancreas: The visualized portions of the pancreatic head and body are normal in appearance. Right Kidney: 11.1 cm. No hydronephrosis or ureterectasis is seen. Vascular: Proximal abdominal aorta and IVC are not well demonstrated. IMPRESSION: 1. Echogenic gallstone in the gallbladder neck is present and likely impacted. A sonographic Levy`s sign was reported. These findings are suspicious for early acute cholecystitis. Clinical follow-up is advised. Dictated by Michael Young MD @ 06/18/2019 12:21:08 AM Dictated by: Michael Young MD @ 06/18/2019 00:21:10 (Electronically Signed)
[2019-06-18] MEDS: Sodium Chloride 0.9% 1,000 ML IV SCH ×3 (08:38→17:43)
[2019-06-18] MEDS ORDERED: Ondansetron 4 MG Tab.DIS PO PRN (09:12)
[2019-06-18] MEDS ORDERED: Ondansetron 4 MG/2 ML SDV IVPUSH PRN (09:12)
[2019-06-18] MEDS: cefTRIAXone 1 GM in Premix Bag 1 BAG IV SCH (09:34)
[2019-06-18] MEDS: Azithromycin 500 MG in Sodium Chloride 0.9% 250 ML IV SCH (10:08)
[2019-06-18] MEDS ORDERED: OMEPRAZOLE MAGNESIUM PO SCH (10:15)
[2019-06-18] MEDS: Hydrochlorothiazide 25 MG Tab PO SCH (10:38)
--- NOTE | 2019-06-18 10:43 | PCM.CONS ---
H&P History of Present Illness - General Date of Service: 06/18/19 Admit Problem/Dx: Admission Diagnosis/Problem Admission Diagnosis/Problem Pneumonia Telephone request from hospitalist service for surgical consult regarding cholelithiasis with impacted 2.5 cm stone without acute inflammatory changes or abnormal LFTs. Order for consult and H&P not yet in record. Patient seen on rounds for expediency. Source of Information: Patient History Limitations: Reports: No Limitations - History of Present Illness Initial Comments - Free Text/Narative: Patient is a 73-year-old gentleman was admitted to the hospitalist service last night after presenting to the emergency room with acute onset of abdominal pain following a meal consisting of pork chops and macaroni and cheese. Patient has never had any symptoms like this in the past. Radiologic workup included a CT scan of the abdomen which revealed a 2.5 cm stone impacted in the neck with no pericholecystic fluid and no gallbladder wall thickening. More importantly, he was found have a significant right middle lobe infiltrate. He denies any fever or chills. No productive cough. Symptom Onset Date: 06/17/19 Location: Reports: Chest, Abdomen Quality: Reports: Pressure Severity: Moderate Improves with: Reports: Rest Worsens with: Reports: None Associated Symptoms: Denies: Diaphoresis, Fever/Chills, Nausea/Vomiting Middle Chest Pain Score (Numeric/FACES): 9 - Related Data Allergies/Adverse Reactions: Allergies Allergy/AdvReac Type Severity Reaction Status Date / Time celecoxib [From Celebrex] Allergy Rash Verified 06/17/19 23:04 Home Medications: Home Meds Aspirin [Bridgman Aspirin EC] 81 mg PO DAILY 04/19/18 [History] Celecoxib 1 tab PO DAILY 04/19/18 [History] Enalapril/Hydrochlorothiazide [Enalapril-HCTZ 10-25 MG] 1 tab PO DAILY 04/19/18 [History] Multivitamin [Multivitamins] 1 tab PO DAILY 04/19/18 [History] Omeprazole Magnesium [Prilosec] 2.5 mg PO BID 06/17/19 [History] Past Medical History HEENT History: Reports: Other (See Below) Other HEENT History: wears glasses, has dentures but does not wear them Cardiovascular History: Reports: High Cholesterol, Hypertension Respiratory History: Reports: Other (See Below) Other Respiratory History: 60 yr hx of smoking, currently smokes 1 pack of cigarettes per day Gastrointestinal History: Reports: None Other Gastrointestinal History: Current C-diff Musculoskeletal History: Reports: Arthritis, Fracture Other Musculoskeletal History: hx fx rt ankle Neurological History: Reports: Other (See Below) (history of polio. Requires crutches to walk and has significant rle weakness that prevents him from going upstairs.) Endocrine/Metabolic History: Reports: Obesity/BMI 30+ - Infectious Disease History Infectious Disease History: Reports: Chicken Pox, Measles, Mumps - Past Surgical History Head Surgeries/Procedures: Reports: None GI Surgical History: Reports: Appendectomy Neurological Surgical History: Reports: C-Spine Other Neurological Surgeries/Procedures: hx neck surgery Musculoskeletal Surgical History: Reports: Hip Replacement, Other (See Below) Other Musculoskeletal Surgeries/Procedures:: hx left knee surgery Social & Family History - Family History Family Medical History: Noncontributory - Tobacco Use Smoking Status *Q: Current Every Day Smoker Years of Tobacco use: 60 Packs/Tins Daily: 1 Second Hand Smoke Exposure: No - Caffeine Use Caffeine Use: Reports: Coffee - Recreational Drug Use Recreational Drug Use: No H&P Review of Systems - Review of Systems: Review Of Systems: See Below General: Reports: Decreased Appetite. Denies: Fever, Chills, Malaise, Weakness , Weight Loss HEENT: Reports: No Symptoms Pulmonary: Reports: Wheezing. Denies: Shortness of Breath, Pleuritic Chest Pain , Cough, Sputum, Hemoptysis Cardiovascular: Denies: Chest Pain (remote hx of [place].), Palpitations Gastrointestinal: Reports: Abdominal Pain, Decreased Appetite, Flatus, Hematochezia (on rare occasions. Hx of C. difficile colitis.). Denies: Anorexia, Black Stool, Bloody Stool, Constipation, Diarrhea, Difficulty Swallowing, Distension, Nausea Genitourinary: Denies: Dysuria, Frequency, Burning, Pain, Urgency Musculoskeletal: Reports: Leg Pain (right) Skin: Denies: Cyanosis, Jaundice, Mottled, Pallor Psychiatric: Reports: No Symptoms Neurological: Reports: No Symptoms Hematologic/Lymphatic: Reports: No Symptoms Immunologic: Reports: No Symptoms Exam - Exam Exam: See Below - Vital Signs Vital Signs: Last Vital Signs Temp 97.2 F 06/18/19 07:05 Pulse 74 06/18/19 07:05 Resp 20 06/18/19 07:05 BP 151/68 H 06/18/19 07:05 Pulse Ox 95 06/18/19 07:05 Weight: 236 lb 1.6 oz - Exam Quality Assessment: Supplemental Oxygen General: Alert, Oriented, Cooperative, Mild Distress HEENT: Conjunctiva Clear, Nares Patent, Pupils Equal, Pupils Reactive. No: Scleral Icterus Neck: Supple, Trachea Midline Lungs: Wheezing (throughout his chest and bilateral). No: Crackles, Rales, Rhonchi Cardiovascular: Regular Rate, Regular Rhythm GI/Abdominal Exam: Normal Bowel Sounds, Soft, Tender (ruq. GB not palpable but patient is quite obese. Note US + [place]' sign.). 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) Peripheral Pulses: 4+: Posterior Tibial (L), Posterior Tibial (R), Dorsalis Pedis (L), Dorsalis Pedis (R) Skin: Warm, Dry, Intact Neurological: Cranial Nerves Intact Psychiatric: Alert, Normal Affect, Normal Mood - Patient Data Lab Results Last 24 hrs: Laboratory Results - last 24 hr 06/17/19 06/17/19 06/17/19 Range/Units 20:25 20:25 20:25 WBC 11.56 H (4.0-11.0) K/uL RBC 4.40 L (4.50-5.90) M/uL Hgb 12.9 L (13.0-17.0) g/dL Hct 39.4 (38.0-50.0) % MCV 89.5 (80.0-98.0) fL MCH 29.3 (27.0-32.0) pg MCHC 32.7 (31.0-37.0) g/dL RDW Std Deviation 51.6 (28.0-62.0) fl RDW Coeff of Ovi 16 H (11.0-15.0) % Plt Count 344 (150-400) K/uL MPV 10.70 (7.40-12.00) fL Neut % (Auto) 66.4 (48.0-80.0) % Lymph % (Auto) 24.8 (16.0-40.0) % [place] % (Auto) 7.3 (0.0-15.0) % Eos % (Auto) 1.2 (0.0-7.0) % Baso % (Auto) 0.3 (0.0-1.5) % Neut # (Auto) 7.7 H (1.4-5.7) K/uL Lymph # (Auto) 2.9 H (0.6-2.4) K/uL [place] # (Auto) 0.8 (0.0-0.8) K/uL Eos # (Auto) 0.1 (0.0-0.7) K/uL Baso # (Auto) 0.0 (0.0-0.1) K/uL Nucleated RBC % 0.0 /100WBC Nucleated RBCs # 0 K/uL INR 0.97 Lactate (0.20-2.00) mmol/L Sodium 134 L (136-148) mmol/L Potassium 3.3 L (3.5-5.1) mmol/L Chloride 96 L (98-107) mmol/L Carbon Dioxide 27.8 (21.0-32.0) mmol/L BUN 22 H (7.0-18.0) mg/dL Creatinine 1.3 (0.8-1.3) mg/dL Est Cr Clr Drug Dosing TNP Estimated GFR (MDRD) 54.1 ml/min Glucose 181 H (74-106) mg/dL Calcium 9.8 (8.5-10.1) mg/dL Total Bilirubin 0.3 (0.2-1.0) mg/dL AST 47 H (15-37) IU/L ALT 36 (14-63) IU/L Alkaline Phosphatase 117 H (46-116) U/L Lactate Dehydrogenase (81-234) U/L Troponin I < 0.050 (0.000-0.056) ng/mL Total Protein 7.2 (6.4-8.2) g/dL Albumin 3.2 L (3.4-5.0) g/dL Globulin 4.0 (2.6-4.0) g/dL Albumin/Globulin Ratio 0.8 L (0.9-1.6) Lipase (73-393) U/L Urine Color Urine Appearance Urine pH (5.0-8.0) Ur Specific [place] (1.001-1.035) Urine Protein (NEGATIVE) mg/dL Urine Glucose (UA) (NEGATIVE) mg/dL Urine Ketones (NEGATIVE) mg/dL Urine Occult Blood (NEGATIVE) Urine Nitrite (NEGATIVE) Urine Bilirubin (NEGATIVE) Urine Urobilinogen (<2.0) EU/dL Ur Leukocyte Esterase (NEGATIVE) Urine RBC (0-2/HPF) Urine WBC (0-5/HPF) Ur Epithelial Cells (NONE-FEW) Urine Bacteria (NEGATIVE) 06/17/19 06/17/19 06/17/19 Range/Units 20:25 21:44 22:06 WBC (4.0-11.0) K/uL RBC (4.50-5.90) M/uL Hgb (13.0-17.0) g/dL Hct (38.0-50.0) % MCV (80.0-98.0) fL MCH (27.0-32.0) pg MCHC (31.0-37.0) g/dL RDW Std Deviation (28.0-62.0) fl RDW Coeff of Ovi (11.0-15.0) % Plt Count (150-400) K/uL MPV (7.40-12.00) fL Neut % (Auto) (48.0-80.0) % Lymph % (Auto) (16.0-40.0) % [place] % (Auto) (0.0-15.0) % Eos % (Auto) (0.0-7.0) % Baso % (Auto) (0.0-1.5) % Neut # (Auto) (1.4-5.7) K/uL Lymph # (Auto) (0.6-2.4) K/uL [place] # (Auto) (0.0-0.8) K/uL Eos # (Auto) (0.0-0.7) K/uL Baso # (Auto) (0.0-0.1) K/uL Nucleated RBC % /100WBC Nucleated RBCs # K/uL INR Lactate 2.2 H (0.20-2.00) mmol/L Sodium (136-148) mmol/L Potassium (3.5-5.1) mmol/L Chloride (98-107) mmol/L Carbon Dioxide (21.0-32.0) mmol/L BUN (7.0-18.0) mg/dL Creatinine (0.8-1.3) mg/dL Est Cr Clr Drug Dosing Estimated GFR (MDRD) ml/min Glucose (74-106) mg/dL Calcium (8.5-10.1) mg/dL Total Bilirubin (0.2-1.0) mg/dL AST (15-37) IU/L ALT (14-63) IU/L Alkaline Phosphatase (46-116) U/L Lactate Dehydrogenase (81-234) U/L Troponin I (0.000-0.056) ng/mL Total Protein (6.4-8.2) g/dL Albumin (3.4-5.0) g/dL Globulin (2.6-4.0) g/dL Albumin/Globulin Ratio (0.9-1.6) Lipase 162 (73-393) U/L Urine Color YELLOW Urine Appearance SLT CLOUDY Urine pH 5.0 (5.0-8.0) Ur Specific [place] <= 1.005 (1.001-1.035) Urine Protein NEGATIVE (NEGATIVE) mg/dL Urine Glucose (UA) NEGATIVE (NEGATIVE) mg/dL Urine Ketones NEGATIVE (NEGATIVE) mg/dL Urine Occult Blood MODERATE H (NEGATIVE) Urine Nitrite NEGATIVE (NEGATIVE) Urine Bilirubin NEGATIVE (NEGATIVE) Urine Urobilinogen 0.2 (<2.0) EU/dL Ur Leukocyte Esterase NEGATIVE (NEGATIVE) Urine RBC 1-3 (0-2/HPF) Urine WBC 0-1 (0-5/HPF) Ur Epithelial Cells RARE (NONE-FEW) Urine Bacteria RARE (NEGATIVE) 06/18/19 06/18/19 06/18/19 Range/Units 03:55 03:55 03:55 WBC 7.81 (4.0-11.0) K/uL RBC 3.91 L (4.50-5.90) M/uL Hgb 11.4 L (13.0-17.0) g/dL Hct 35.4 L (38.0-50.0) % MCV 90.5 (80.0-98.0) fL MCH 29.2 (27.0-32.0) pg MCHC 32.2 (31.0-37.0) g/dL RDW Std Deviation 52.7 (28.0-62.0) fl RDW Coeff of Ovi 16 H (11.0-15.0) % Plt Count 292 (150-400) K/uL MPV 10.40 (7.40-12.00) fL Neut % (Auto) 87.7 H (48.0-80.0) % Lymph % (Auto) 10.8 L (16.0-40.0) % [place] % (Auto) 1.3 (0.0-15.0) % Eos % (Auto) 0.1 (0.0-7.0) % Baso % (Auto) 0.1 (0.0-1.5) % Neut # (Auto) 6.9 H (1.4-5.7) K/uL Lymph # (Auto) 0.8 (0.6-2.4) K/uL [place] # (Auto) 0.1 (0.0-0.8) K/uL Eos # (Auto) 0.0 (0.0-0.7) K/uL Baso # (Auto) 0.0 (0.0-0.1) K/uL Nucleated RBC % 0.0 /100WBC Nucleated RBCs # 0 K/uL INR Lactate 2.2 H (0.20-2.00) mmol/L Sodium (136-148) mmol/L Potassium (3.5-5.1) mmol/L Chloride (98-107) mmol/L Carbon Dioxide (21.0-32.0) mmol/L BUN (7.0-18.0) mg/dL Creatinine (0.8-1.3) mg/dL Est Cr Clr Drug Dosing Estimated GFR (MDRD) ml/min Glucose (74-106) mg/dL Calcium (8.5-10.1) mg/dL Total Bilirubin (0.2-1.0) mg/dL AST (15-37) IU/L ALT (14-63) IU/L Alkaline Phosphatase (46-116) U/L Lactate Dehydrogenase 298 H (81-234) U/L Troponin I (0.000-0.056) ng/mL Total Protein (6.4-8.2) g/dL Albumin (3.4-5.0) g/dL Globulin (2.6-4.0) g/dL Albumin/Globulin Ratio (0.9-1.6) Lipase (73-393) U/L Urine Color Urine Appearance Urine pH (5.0-8.0) Ur Specific [place] (1.001-1.035) Urine Protein (NEGATIVE) mg/dL Urine Glucose (UA) (NEGATIVE) mg/dL Urine Ketones (NEGATIVE) mg/dL Urine Occult Blood (NEGATIVE) Urine Nitrite (NEGATIVE) Urine Bilirubin (NEGATIVE) Urine Urobilinogen (<2.0) EU/dL Ur Leukocyte Esterase (NEGATIVE) Urine RBC (0-2/HPF) Urine WBC (0-5/HPF) Ur Epithelial Cells (NONE-FEW) Urine Bacteria (NEGATIVE) 06/18/19 Range/Units 09:55 WBC (4.0-11.0) K/uL RBC (4.50-5.90) M/uL Hgb (13.0-17.0) g/dL Hct (38.0-50.0) % MCV (80.0-98.0) fL MCH (27.0-32.0) pg MCHC (31.0-37.0) g/dL RDW Std Deviation (28.0-62.0) fl RDW Coeff of Ovi (11.0-15.0) % Plt Count (150-400) K/uL MPV (7.40-12.00) fL Neut % (Auto) (48.0-80.0) % Lymph % (Auto) (16.0-40.0) % [place] % (Auto) (0.0-15.0) % Eos % (Auto) (0.0-7.0) % Baso % (Auto) (0.0-1.5) % Neut # (Auto) (1.4-5.7) K/uL Lymph # (Auto) (0.6-2.4) K/uL [place] # (Auto) (0.0-0.8) K/uL Eos # (Auto) (0.0-0.7) K/uL Baso # (Auto) (0.0-0.1) K/uL Nucleated RBC % /100WBC Nucleated RBCs # K/uL INR Lactate 3.6 H (0.20-2.00) mmol/L Sodium (136-148) mmol/L Potassium (3.5-5.1) mmol/L Chloride (98-107) mmol/L Carbon Dioxide (21.0-32.0) mmol/L BUN (7.0-18.0) mg/dL Creatinine (0.8-1.3) mg/dL Est Cr Clr Drug Dosing Estimated GFR (MDRD) ml/min Glucose (74-106) mg/dL Calcium (8.5-10.1) mg/dL Total Bilirubin (0.2-1.0) mg/dL AST (15-37) IU/L ALT (14-63) IU/L Alkaline Phosphatase (46-116) U/L Lactate Dehydrogenase (81-234) U/L Troponin I (0.000-0.056) ng/mL Total Protein (6.4-8.2) g/dL Albumin (3.4-5.0) g/dL Globulin (2.6-4.0) g/dL Albumin/Globulin Ratio (0.9-1.6) Lipase (73-393) U/L Urine Color Urine Appearance Urine pH (5.0-8.0) Ur Specific [place] (1.001-1.035) Urine Protein (NEGATIVE) mg/dL Urine Glucose (UA) (NEGATIVE) mg/dL Urine Ketones (NEGATIVE) mg/dL Urine Occult Blood (NEGATIVE) Urine Nitrite (NEGATIVE) Urine Bilirubin (NEGATIVE) Urine Urobilinogen (<2.0) EU/dL Ur Leukocyte Esterase (NEGATIVE) Urine RBC (0-2/HPF) Urine WBC (0-5/HPF) Ur Epithelial Cells (NONE-FEW) Urine Bacteria (NEGATIVE) Result Diagrams: 06/18/19 03:55 06/17/19 20:25 Consult PN Assessment/Plan Procedures: Procedures AGENT NOS ASSAY W/OPTIC (06/10/18) BLOOD TYPING SEROLOGIC ABO (04/21/18) BLOOD TYPING SEROLOGIC RH(D) (04/21/18) CLOSTRIDIUM AG IA (10/27/18) COMPLETE CBC W/AUTO DIFF WBC (09/27/18) COMPREHEN METABOLIC PANEL (09/27/18) CRYPTOSPORIDIUM AG IA (06/10/18) ELECTROCARDIOGRAM TRACING (03/24/18) EMERGENCY DEPT VISIT (09/27/18) EMERGENCY DEPT VISIT (06/27/15) EXTREMITY STUDY (05/04/18) FLUOROSCOPY <1 HR PHYS/QHP (04/21/18) GIARDIA AG IA (06/10/18) HEMATOCRIT (04/21/18) HEMOGLOBIN (04/21/18) HYDRATION IV INFUSION INIT (09/27/18) LIPID PANEL (03/04/18) METABOLIC PANEL TOTAL CA (03/24/18) OFFICE/OUTPATIENT VISIT EST (06/10/18) OFFICE/OUTPATIENT VISIT EST (04/19/18) OFFICE/OUTPATIENT VISIT EST (03/24/18) OFFICE/OUTPATIENT VISIT EST (07/18/15) OT EVAL HIGH COMPLEX 60 MIN (02/16/18) PROTHROMBIN TIME (03/24/18) PT EVAL MOD COMPLEX 30 MIN (04/21/18) RBC ANTIBODY SCREEN (04/21/18) ROUTINE VENIPUNCTURE (09/27/18) STOOL CULTR AEROBIC BACT EA (06/10/18) THERAPEUTIC EXERCISES (04/21/18) URINALYSIS AUTO W/SCOPE (03/24/18) X-RAY EXAM CHEST 2 VIEWS (03/24/18) X-RAY EXAM HIP UNI 2-3 VIEWS (07/05/18) X-RAY EXAM HIPS BI 2 VIEWS (02/11/18) X-RAY EXAM OF FOOT (06/27/15) X-RAY EXAM OF PELVIS (04/19/18) (1) Cholelithiasis SNOMED Code(s): 491822812 Code(s): K80.20 - CALCULUS OF GALLBLADDER W/O CHOLECYSTITIS W/O OBSTRUCTION Current Visit: Yes Qualifiers: Cholelithiasis location: gallbladder Cholecystitis presence: without cholecystitis Biliary obstruction: without biliary obstruction Qualified Code(s): K80.20 - Calculus of gallbladder without cholecystitis without obstruction (2) Community acquired pneumonia SNOMED Code(s): 630727100 Code(s): J18.9 - PNEUMONIA, UNSPECIFIED ORGANISM Current Visit: Yes Qualifiers: Laterality: right Lung location: middle lobe of lung Qualified Code(s): J18.1 - Lobar pneumonia, unspecified organism Problem List Initiated/Reviewed/Updated: Yes Plan: At the present time, the patient is not a candidate for elective surgery related to his right middle lobe infiltrate. I also note his lactate has increased to 3.6 from 2.2 earlier. I have personally reviewed the US and agree there is a stone in the gallbladder neck along with sludge. I do not see any pericholecystic fluid or gallbladder wall thickening. Given his current situation, he is not a surgical candidate here and would need transfer to a tertiary facility.
--- NOTE | 2019-06-18 10:47 | PCM.HP.2 ---
<Hemal Kramer M - Last Filed: 06/18/19 11:07> H&P History of Present Illness - General Date of Service: 06/18/19 Admit Problem/Dx: Admission Diagnosis/Problem Admission Diagnosis/Problem Pneumonia - History of Present Illness Initial Comments - Free Text/Narative: 73-year-old male presents with right sided chest and right sided abdominal pain for the past 1 day. He has a PMH of [place], hyperlipidemia and polio. He also reports feeling nauseous and vomiting yesterday. He has been experiencing pain in his right chest and right abdomen intermittently for the past month now. He has had a decreased appetite and states that he the abdominal pain he has been having is sometimes experienced with eating but not always. Patient is a current smoker of approximately 2 packs per day. He denies having any fevers, chills, sore throat, cough or shortness of breath or blood in urine. He does report noticing blood when wiping after having a bowel movement that is chronic. In the ER, patient was given a dose of nitroglycerin that did not resolve his chest pain. Troponin was negative. CXR revealed a RML/RLL infiltrate. CT abdomen revealed a 2.5 cm gallstone in the neck of the gallbladder causing distention of 5.5 cm. Ultrasound of gallbladder showed 2.5 cm gallstone which is likely impacted, no pericholecystic fluid, positive sonographic levy's sign and signs of possibly early acute cholecystitis. Patient was started on IV fluids and IV antibiotics and admitted for further evaluation and treatment. Middle Chest Pain Score (Numeric/FACES): 9 - Related Data Allergies/Adverse Reactions: Allergies Allergy/AdvReac Type Severity Reaction Status Date / Time celecoxib [From Celebrex] Allergy Rash Verified 06/17/19 23:04 Home Medications: Home Meds Aspirin [[place]ley Aspirin EC] 81 mg PO DAILY 04/19/18 [History] Celecoxib 1 tab PO DAILY 04/19/18 [History] Enalapril/Hydrochlorothiazide [Enalapril-HCTZ 10-25 MG] 1 tab PO DAILY 04/19/18 [History] Multivitamin [Multivitamins] 1 tab PO DAILY 04/19/18 [History] Omeprazole Magnesium [Prilosec] 2.5 mg PO BID 06/17/19 [History] Past Medical History HEENT History: Reports: Other (See Below) Other HEENT History: wears glasses, has dentures but does not wear them Cardiovascular History: Reports: High Cholesterol, Hypertension Respiratory History: Reports: Other (See Below) Other Respiratory History: 60 yr hx of smoking, currently smokes 1 pack of cigarettes per day Gastrointestinal History: Reports: None Other Gastrointestinal History: Current C-diff Musculoskeletal History: Reports: Arthritis, Fracture Other Musculoskeletal History: hx fx rt ankle Neurological History: Reports: Other (See Below) Endocrine/Metabolic History: Reports: Obesity/BMI 30+ - Infectious Disease History Infectious Disease History: Reports: Chicken Pox, Measles, Mumps - Past Surgical History Head Surgeries/Procedures: Reports: None GI Surgical History: Reports: Appendectomy Neurological Surgical History: Reports: C-Spine Other Neurological Surgeries/Procedures: hx neck surgery Musculoskeletal Surgical History: Reports: Hip Replacement, Other (See Below) Other Musculoskeletal Surgeries/Procedures:: hx left knee surgery Social & Family History - Family History Family Medical History: Noncontributory - Tobacco Use Smoking Status *Q: Current Every Day Smoker Years of Tobacco use: 60 Packs/Tins Daily: 1 Second Hand Smoke Exposure: No - Caffeine Use Caffeine Use: Reports: Coffee - Recreational Drug Use Recreational Drug Use: No H&P Review of Systems - Review of Systems: Review Of Systems: ROS reveals no pertinent complaints other than HPI. Exam - Exam Exam: See Below - Vital Signs Vital Signs: Last Vital Signs Temp 97.2 F 06/18/19 07:05 Pulse 74 06/18/19 07:05 Resp 20 06/18/19 07:05 BP 151/68 H 06/18/19 07:05 Pulse Ox 95 06/18/19 07:05 Weight: 107.093 kg - Exam General: Alert, Oriented, Cooperative, Other (No acute distress.) HEENT: Conjunctiva Clear, EOMI, Posterior Pharynx Clear, Pupils Equal, Other ( hard of hearing) Neck: Supple, Trachea Midline Lungs: Other (scattered expiratory rhonchi appreciated bilaterally. wheezing appreciated in RUL and MARIEL.) Cardiovascular: Regular Rate, Regular Rhythm GI/Abdominal Exam: Normal Bowel Sounds, No Distention, Tender, Other (RUQ tenderness to palpation. Levy's sign positive.) Extremities: Normal Inspection, No Pedal Edema Peripheral Pulses: 1+: Posterior Tibial (L), Posterior Tibial (R) Skin: Warm, Dry, Intact Neurological: Cranial Nerves Intact, Normal Speech, Sensation Intact, Other ( atrophy of RLE.) Neuro Extensive - Mental Status: Alert, Oriented x3, Normal Mood/Affect Psychiatric: Alert, Normal Affect, Normal Mood - Patient Data Lab Results Last 24 hrs: Laboratory Results - last 24 hr 06/17/19 06/17/19 06/17/19 Range/Units 20:25 20:25 20:25 WBC 11.56 H (4.0-11.0) K/uL RBC 4.40 L (4.50-5.90) M/uL Hgb 12.9 L (13.0-17.0) g/dL Hct 39.4 (38.0-50.0) % MCV 89.5 (80.0-98.0) fL MCH 29.3 (27.0-32.0) pg MCHC 32.7 (31.0-37.0) g/dL RDW Std Deviation 51.6 (28.0-62.0) fl RDW Coeff of Ovi 16 H (11.0-15.0) % Plt Count 344 (150-400) K/uL MPV 10.70 (7.40-12.00) fL Neut % (Auto) 66.4 (48.0-80.0) % Lymph % (Auto) 24.8 (16.0-40.0) % [place] % (Auto) 7.3 (0.0-15.0) % Eos % (Auto) 1.2 (0.0-7.0) % Baso % (Auto) 0.3 (0.0-1.5) % Neut # (Auto) 7.7 H (1.4-5.7) K/uL Lymph # (Auto) 2.9 H (0.6-2.4) K/uL [place] # (Auto) 0.8 (0.0-0.8) K/uL Eos # (Auto) 0.1 (0.0-0.7) K/uL Baso # (Auto) 0.0 (0.0-0.1) K/uL Nucleated RBC % 0.0 /100WBC Nucleated RBCs # 0 K/uL INR 0.97 Lactate (0.20-2.00) mmol/L Sodium 134 L (136-148) mmol/L Potassium 3.3 L (3.5-5.1) mmol/L Chloride 96 L (98-107) mmol/L Carbon Dioxide 27.8 (21.0-32.0) mmol/L BUN 22 H (7.0-18.0) mg/dL Creatinine 1.3 (0.8-1.3) mg/dL Est Cr Clr Drug Dosing TNP Estimated GFR (MDRD) 54.1 ml/min Glucose 181 H (74-106) mg/dL Calcium 9.8 (8.5-10.1) mg/dL Total Bilirubin 0.3 (0.2-1.0) mg/dL AST 47 H (15-37) IU/L ALT 36 (14-63) IU/L Alkaline Phosphatase 117 H (46-116) U/L Lactate Dehydrogenase (81-234) U/L Troponin I < 0.050 (0.000-0.056) ng/mL Total Protein 7.2 (6.4-8.2) g/dL Albumin 3.2 L (3.4-5.0) g/dL Globulin 4.0 (2.6-4.0) g/dL Albumin/Globulin Ratio 0.8 L (0.9-1.6) Lipase (73-393) U/L Urine Color Urine Appearance Urine pH (5.0-8.0) Ur Specific [place] (1.001-1.035) Urine Protein (NEGATIVE) mg/dL Urine Glucose (UA) (NEGATIVE) mg/dL Urine Ketones (NEGATIVE) mg/dL Urine Occult Blood (NEGATIVE) Urine Nitrite (NEGATIVE) Urine Bilirubin (NEGATIVE) Urine Urobilinogen (<2.0) EU/dL Ur Leukocyte Esterase (NEGATIVE) Urine RBC (0-2/HPF) Urine WBC (0-5/HPF) Ur Epithelial Cells (NONE-FEW) Urine Bacteria (NEGATIVE) 06/17/19 06/17/19 06/17/19 Range/Units 20:25 21:44 22:06 WBC (4.0-11.0) K/uL RBC (4.50-5.90) M/uL Hgb (13.0-17.0) g/dL Hct (38.0-50.0) % MCV (80.0-98.0) fL MCH (27.0-32.0) pg MCHC (31.0-37.0) g/dL RDW Std Deviation (28.0-62.0) fl RDW Coeff of Ovi (11.0-15.0) % Plt Count (150-400) K/uL MPV (7.40-12.00) fL Neut % (Auto) (48.0-80.0) % Lymph % (Auto) (16.0-40.0) % [place] % (Auto) (0.0-15.0) % Eos % (Auto) (0.0-7.0) % Baso % (Auto) (0.0-1.5) % Neut # (Auto) (1.4-5.7) K/uL Lymph # (Auto) (0.6-2.4) K/uL [place] # (Auto) (0.0-0.8) K/uL Eos # (Auto) (0.0-0.7) K/uL Baso # (Auto) (0.0-0.1) K/uL Nucleated RBC % /100WBC Nucleated RBCs # K/uL INR Lactate 2.2 H (0.20-2.00) mmol/L Sodium (136-148) mmol/L Potassium (3.5-5.1) mmol/L Chloride (98-107) mmol/L Carbon Dioxide (21.0-32.0) mmol/L BUN (7.0-18.0) mg/dL Creatinine (0.8-1.3) mg/dL Est Cr Clr Drug Dosing Estimated GFR (MDRD) ml/min Glucose (74-106) mg/dL Calcium (8.5-10.1) mg/dL Total Bilirubin (0.2-1.0) mg/dL AST (15-37) IU/L ALT (14-63) IU/L Alkaline Phosphatase (46-116) U/L Lactate Dehydrogenase (81-234) U/L Troponin I (0.000-0.056) ng/mL Total Protein (6.4-8.2) g/dL Albumin (3.4-5.0) g/dL Globulin (2.6-4.0) g/dL Albumin/Globulin Ratio (0.9-1.6) Lipase 162 (73-393) U/L Urine Color YELLOW Urine Appearance SLT CLOUDY Urine pH 5.0 (5.0-8.0) Ur Specific [place] <= 1.005 (1.001-1.035) Urine Protein NEGATIVE (NEGATIVE) mg/dL Urine Glucose (UA) NEGATIVE (NEGATIVE) mg/dL Urine Ketones NEGATIVE (NEGATIVE) mg/dL Urine Occult Blood MODERATE H (NEGATIVE) Urine Nitrite NEGATIVE (NEGATIVE) Urine Bilirubin NEGATIVE (NEGATIVE) Urine Urobilinogen 0.2 (<2.0) EU/dL Ur Leukocyte Esterase NEGATIVE (NEGATIVE) Urine RBC 1-3 (0-2/HPF) Urine WBC 0-1 (0-5/HPF) Ur Epithelial Cells RARE (NONE-FEW) Urine Bacteria RARE (NEGATIVE) 06/18/19 06/18/19 06/18/19 Range/Units 03:55 03:55 03:55 WBC 7.81 (4.0-11.0) K/uL RBC 3.91 L (4.50-5.90) M/uL Hgb 11.4 L (13.0-17.0) g/dL Hct 35.4 L (38.0-50.0) % MCV 90.5 (80.0-98.0) fL MCH 29.2 (27.0-32.0) pg MCHC 32.2 (31.0-37.0) g/dL RDW Std Deviation 52.7 (28.0-62.0) fl RDW Coeff of Ovi 16 H (11.0-15.0) % Plt Count 292 (150-400) K/uL MPV 10.40 (7.40-12.00) fL Neut % (Auto) 87.7 H (48.0-80.0) % Lymph % (Auto) 10.8 L (16.0-40.0) % [place] % (Auto) 1.3 (0.0-15.0) % Eos % (Auto) 0.1 (0.0-7.0) % Baso % (Auto) 0.1 (0.0-1.5) % Neut # (Auto) 6.9 H (1.4-5.7) K/uL Lymph # (Auto) 0.8 (0.6-2.4) K/uL [place] # (Auto) 0.1 (0.0-0.8) K/uL Eos # (Auto) 0.0 (0.0-0.7) K/uL Baso # (Auto) 0.0 (0.0-0.1) K/uL Nucleated RBC % 0.0 /100WBC Nucleated RBCs # 0 K/uL INR Lactate 2.2 H (0.20-2.00) mmol/L Sodium (136-148) mmol/L Potassium (3.5-5.1) mmol/L Chloride (98-107) mmol/L Carbon Dioxide (21.0-32.0) mmol/L BUN (7.0-18.0) mg/dL Creatinine (0.8-1.3) mg/dL Est Cr Clr Drug Dosing Estimated GFR (MDRD) ml/min Glucose (74-106) mg/dL Calcium (8.5-10.1) mg/dL Total Bilirubin (0.2-1.0) mg/dL AST (15-37) IU/L ALT (14-63) IU/L Alkaline Phosphatase (46-116) U/L Lactate Dehydrogenase 298 H (81-234) U/L Troponin I (0.000-0.056) ng/mL Total Protein (6.4-8.2) g/dL Albumin (3.4-5.0) g/dL Globulin (2.6-4.0) g/dL Albumin/Globulin Ratio (0.9-1.6) Lipase (73-393) U/L Urine Color Urine Appearance Urine pH (5.0-8.0) Ur Specific [place] (1.001-1.035) Urine Protein (NEGATIVE) mg/dL Urine Glucose (UA) (NEGATIVE) mg/dL Urine Ketones (NEGATIVE) mg/dL Urine Occult Blood (NEGATIVE) Urine Nitrite (NEGATIVE) Urine Bilirubin (NEGATIVE) Urine Urobilinogen (<2.0) EU/dL Ur Leukocyte Esterase (NEGATIVE) Urine RBC (0-2/HPF) Urine WBC (0-5/HPF) Ur Epithelial Cells (NONE-FEW) Urine Bacteria (NEGATIVE) 06/18/19 Range/Units 09:55 WBC (4.0-11.0) K/uL RBC (4.50-5.90) M/uL Hgb (13.0-17.0) g/dL Hct (38.0-50.0) % MCV (80.0-98.0) fL MCH (27.0-32.0) pg MCHC (31.0-37.0) g/dL RDW Std Deviation (28.0-62.0) fl RDW Coeff of Ovi (11.0-15.0) % Plt Count (150-400) K/uL MPV (7.40-12.00) fL Neut % (Auto) (48.0-80.0) % Lymph % (Auto) (16.0-40.0) % [place] % (Auto) (0.0-15.0) % Eos % (Auto) (0.0-7.0) % Baso % (Auto) (0.0-1.5) % Neut # (Auto) (1.4-5.7) K/uL Lymph # (Auto) (0.6-2.4) K/uL [place] # (Auto) (0.0-0.8) K/uL Eos # (Auto) (0.0-0.7) K/uL Baso # (Auto) (0.0-0.1) K/uL Nucleated RBC % /100WBC Nucleated RBCs # K/uL INR Lactate 3.6 H (0.20-2.00) mmol/L Sodium (136-148) mmol/L Potassium (3.5-5.1) mmol/L Chloride (98-107) mmol/L Carbon Dioxide (21.0-32.0) mmol/L BUN (7.0-18.0) mg/dL Creatinine (0.8-1.3) mg/dL Est Cr Clr Drug Dosing Estimated GFR (MDRD) ml/min Glucose (74-106) mg/dL Calcium (8.5-10.1) mg/dL Total Bilirubin (0.2-1.0) mg/dL AST (15-37) IU/L ALT (14-63) IU/L Alkaline Phosphatase (46-116) U/L Lactate Dehydrogenase (81-234) U/L Troponin I (0.000-0.056) ng/mL Total Protein (6.4-8.2) g/dL Albumin (3.4-5.0) g/dL Globulin (2.6-4.0) g/dL Albumin/Globulin Ratio (0.9-1.6) Lipase (73-393) U/L Urine Color Urine Appearance Urine pH (5.0-8.0) Ur Specific [place] (1.001-1.035) Urine Protein (NEGATIVE) mg/dL Urine Glucose (UA) (NEGATIVE) mg/dL Urine Ketones (NEGATIVE) mg/dL Urine Occult Blood (NEGATIVE) Urine Nitrite (NEGATIVE) Urine Bilirubin (NEGATIVE) Urine Urobilinogen (<2.0) EU/dL Ur Leukocyte Esterase (NEGATIVE) Urine RBC (0-2/HPF) Urine WBC (0-5/HPF) Ur Epithelial Cells (NONE-FEW) Urine Bacteria (NEGATIVE) Result Diagrams: 06/18/19 03:55 06/17/19 20:25 Problem List Initiated/Reviewed/Updated: Yes Orders Last 24hrs: Active Orders 24 hr Category Date Time Status Admission Status [Patient Status] [ADT] Stat ADT 06/17/19 21:28 Active Antiembolic Devices [RC] PER UNIT ROUTINE Care 06/18/19 09:13 Active Oxygen Therapy [RC] PRN Care 06/18/19 09:12 Active RT Incentive Spirometry [RC] Q1HWA Care 06/18/19 09:17 Active Telemetry Monitoring [Cardiac Monitoring] [RC] Q8H Care 06/17/19 22:18 Active Up ad Nette [RC] ASDIRECTED Care 06/18/19 09:12 Active VTE/DVT Education [RC] PER UNIT ROUTINE Care 06/18/19 09:12 Active Vital Signs [RC] Q4H Care 06/18/19 09:12 Active Heart Healthy Diet [DIET] Diet 06/18/19 Lunch Active CULTURE BLOOD [BC] Stat Lab 06/17/19 21:44 Received CULTURE BLOOD [BC] Stat Lab 06/17/19 22:13 Received LACTIC ACID,WHOLE BLOOD [BG] Q3H Lab 06/18/19 13:00 Ordered LACTIC ACID,WHOLE BLOOD [BG] Q3H Lab 06/18/19 16:00 Ordered LACTIC ACID,WHOLE BLOOD [BG] Q3H Lab 06/18/19 19:00 Ordered LACTIC ACID,WHOLE BLOOD [BG] Q3H Lab 06/18/19 22:00 Ordered Acetaminophen [Tylenol] Med 06/17/19 23:18 Active 650 mg PO Q6H PRN Aspirin [Halfprin] Med 06/19/19 09:00 Active 81 mg PO DAILY Azithromycin [Zithromax] 500 mg Med 06/18/19 09:30 Active Sodium Chloride 0.9% [Normal Saline (AdvBag)] 250 ml IV DAILY Enalapril [Vasotec] Med 06/18/19 10:15 Active 10 mg PO DAILY Omeprazole Magnesium [Prilosec] Med 06/18/19 10:15 Pending 2.5 mg PO BID Ondansetron [Zofran ODT] Med 06/18/19 09:12 Active 4 mg PO Q4H PRN Ondansetron [Zofran] Med 06/18/19 09:12 Active 4 mg IVPUSH Q4H PRN Sodium Chloride 0.9% [Normal Saline] 1,000 ml Med 06/18/19 10:13 Active IV Q8H Sodium Chloride 0.9% [Saline Flush] Med 06/17/19 20:29 Active 10 ml FLUSH ASDIRECTED PRN Sodium Chloride 0.9% [Saline Flush] Med 06/17/19 20:29 Active 2.5 ml FLUSH ASDIRECTED PRN cefTRIAXone [Rocephin in Dextrose,Iso-Osm 1 GM/50 ML] 1 Med 06/18/19 09:15 Active gm Premix Bag 1 bag IV Q24H hydroCHLOROthiazide Med 06/18/19 10:11 Active 25 mg PO DAILY oxyCODONE Med 06/17/19 23:19 Active 5 mg PO Q4H PRN Blood Culture x2 Reflex Set [OM.PC] Stat Ot 06/17/19 21:27 Ordered Saline Lock Insert [OM.PC] Stat Ot 06/17/19 20:29 Ordered Sequential Compression Device [OM.PC] Per Unit Routine Oth 06/18/19 09:12 Ordered Resuscitation Status Routine Resus Stat 06/18/19 09:12 Ordered Medication Orders Acetaminophen (Tylenol) 650 mg PO Q6H PRN PRN Reason: Pain Aspirin (Halfprin) 81 mg PO DAILY SYMONE Enalapril Maleate (Vasotec) 10 mg PO DAILY SYMONE Hydrochlorothiazide (Hydrochlorothiazide) 25 mg PO DAILY SYMONE Last Admin: 06/18/19 10:38 Dose: 25 mg Azithromycin 500 mg/ Sodium (Chloride) 250 mls @ 250 mls/hr IV DAILY SYMONE Last Admin: 06/18/19 10:08 Dose: 250 mls/hr Ceftriaxone Sodium/Dextrose 1 (gm/ Premix) 50 mls @ 100 mls/hr IV Q24H [facility] Last Admin: 06/18/19 09:34 Dose: 100 mls/hr Sodium Chloride (Normal Saline) 1,000 mls @ 125 mls/hr IV Q8H [facility] Last Admin: 06/18/19 10:39 Dose: 125 mls/hr Non-Formulary Medication (Omeprazole Magnesium [Prilosec]) 2.5 mg PO BID [facility] Ondansetron HCl (Zofran Odt) 4 mg PO Q4H PRN PRN Reason: nausea, able to take PO Ondansetron HCl (Zofran) 4 mg IVPUSH Q4H PRN PRN Reason: Nausea Oxycodone HCl (Oxycodone) 5 mg PO Q4H PRN PRN Reason: Pain (moderate 4-6) Sodium Chloride (Saline Flush) 10 ml FLUSH ASDIRECTED PRN PRN Reason: Keep Vein Open Last Admin: 06/17/19 20:47 Dose: 10 ml Sodium Chloride (Saline Flush) 2.5 ml FLUSH ASDIRECTED PRN PRN Reason: Keep Vein Open Last Admin: 06/17/19 20:47 Dose: 2.5 ml Assessment/Plan Comment:: Assessment: 1. Community acquired pneumonia. 2. RUQ abdominal pain secondary to biliary colic. 3. Chest pain likely secondary to #1. 4. Hypokalemia. 5. Right 1cm subpleural lung nodule. 6. Past medical history of [place], hyperlipidemia, tobacco abuse and polio. Plan: 1. For community acquire pneumonia, patient started on IV ceftriaxone and IV azithromycin. He is on IV fluids 125 cc/hr. Lactate level elevated on admission and will repeat lactate level q3h until normalized. Blood cultures pending. Patient may require outpatient bronchoscopy to rule out obstructing mass as per CT. 2. For biliary colic, ultrasound showed a 2.5 cm gallstone likely impacted in neck of gallbladder, no pericholecystic fluid, positive sonographic Levy's signs indicating possible early signs of acute cholecystitis. Will consult general surgery and appreciate all recommendations. 3. For hypokalemia, will replete with KCl 40 mEq PO x1. Will recheck with AM labs. 4. For right subpleural lung nodule, patient will require out-patient follow-up and imaging. 5. For past medical history, will continue with home medications. <Ajay Culp - Last Filed: 06/18/19 13:54> H&P History of Present Illness - General Admit Problem/Dx: Admission Diagnosis/Problem Admission Diagnosis/Problem Pneumonia I have examined the patient independently of medical reception specialist, Dr. Williams MD. I have discussed the case with him. I have reviewed and agree with the examination and plan as outlined by him. Please see orders. Exam - Vital Signs Vital Signs: Last Vital Signs Temp 36.2 C 06/18/19 12:00 Pulse 72 06/18/19 12:00 Resp 22 H 06/18/19 12:00 BP 142/73 H 06/18/19 12:00 Pulse Ox 96 06/18/19 12:00 - Patient Data Lab Results Last 24 hrs: Laboratory Results - last 24 hr 06/17/19 06/17/19 06/17/19 Range/Units 20:25 20:25 20:25 WBC 11.56 H (4.0-11.0) K/uL RBC 4.40 L (4.50-5.90) M/uL Hgb 12.9 L (13.0-17.0) g/dL Hct 39.4 (38.0-50.0) % MCV 89.5 (80.0-98.0) fL MCH 29.3 (27.0-32.0) pg MCHC 32.7 (31.0-37.0) g/dL RDW Std Deviation 51.6 (28.0-62.0) fl RDW Coeff of Ovi 16 H (11.0-15.0) % Plt Count 344 (150-400) K/uL MPV 10.70 (7.40-12.00) fL Neut % (Auto) 66.4 (48.0-80.0) % Lymph % (Auto) 24.8 (16.0-40.0) % [place] % (Auto) 7.3 (0.0-15.0) % Eos % (Auto) 1.2 (0.0-7.0) % Baso % (Auto) 0.3 (0.0-1.5) % Neut # (Auto) 7.7 H (1.4-5.7) K/uL Lymph # (Auto) 2.9 H (0.6-2.4) K/uL [place] # (Auto) 0.8 (0.0-0.8) K/uL Eos # (Auto) 0.1 (0.0-0.7) K/uL Baso # (Auto) 0.0 (0.0-0.1) K/uL Nucleated RBC % 0.0 /100WBC Nucleated RBCs # 0 K/uL INR 0.97 Lactate (0.20-2.00) mmol/L Sodium 134 L (136-148) mmol/L Potassium 3.3 L (3.5-5.1) mmol/L Chloride 96 L (98-107) mmol/L Carbon Dioxide 27.8 (21.0-32.0) mmol/L BUN 22 H (7.0-18.0) mg/dL Creatinine 1.3 (0.8-1.3) mg/dL Est Cr Clr Drug Dosing TNP Estimated GFR (MDRD) 54.1 ml/min Glucose 181 H (74-106) mg/dL Calcium 9.8 (8.5-10.1) mg/dL Magnesium (1.8-2.4) mg/dL Total Bilirubin 0.3 (0.2-1.0) mg/dL AST 47 H (15-37) IU/L ALT 36 (14-63) IU/L Alkaline Phosphatase 117 H (46-116) U/L Lactate Dehydrogenase (81-234) U/L Troponin I < 0.050 (0.000-0.056) ng/mL Total Protein 7.2 (6.4-8.2) g/dL Albumin 3.2 L (3.4-5.0) g/dL Globulin 4.0 (2.6-4.0) g/dL Albumin/Globulin Ratio 0.8 L (0.9-1.6) Lipase (73-393) U/L Urine Color Urine Appearance Urine pH (5.0-8.0) Ur Specific [place] (1.001-1.035) Urine Protein (NEGATIVE) mg/dL Urine Glucose (UA) (NEGATIVE) mg/dL Urine Ketones (NEGATIVE) mg/dL Urine Occult Blood (NEGATIVE) Urine Nitrite (NEGATIVE) Urine Bilirubin (NEGATIVE) Urine Urobilinogen (<2.0) EU/dL Ur Leukocyte Esterase (NEGATIVE) Urine RBC (0-2/HPF) Urine WBC (0-5/HPF) Ur Epithelial Cells (NONE-FEW) Urine Bacteria (NEGATIVE) 06/17/19 06/17/19 06/17/19 Range/Units 20:25 21:44 22:06 WBC (4.0-11.0) K/uL RBC (4.50-5.90) M/uL Hgb (13.0-17.0) g/dL Hct (38.0-50.0) % MCV (80.0-98.0) fL MCH (27.0-32.0) pg MCHC (31.0-37.0) g/dL RDW Std Deviation (28.0-62.0) fl RDW Coeff of Ovi (11.0-15.0) % Plt Count (150-400) K/uL MPV (7.40-12.00) fL Neut % (Auto) (48.0-80.0) % Lymph % (Auto) (16.0-40.0) % [place] % (Auto) (0.0-15.0) % Eos % (Auto) (0.0-7.0) % Baso % (Auto) (0.0-1.5) % Neut # (Auto) (1.4-5.7) K/uL Lymph # (Auto) (0.6-2.4) K/uL [place] # (Auto) (0.0-0.8) K/uL Eos # (Auto) (0.0-0.7) K/uL Baso # (Auto) (0.0-0.1) K/uL Nucleated RBC % /100WBC Nucleated RBCs # K/uL INR Lactate 2.2 H (0.20-2.00) mmol/L Sodium (136-148) mmol/L Potassium (3.5-5.1) mmol/L Chloride (98-107) mmol/L Carbon Dioxide (21.0-32.0) mmol/L BUN (7.0-18.0) mg/dL Creatinine (0.8-1.3) mg/dL Est Cr Clr Drug Dosing Estimated GFR (MDRD) ml/min Glucose (74-106) mg/dL Calcium (8.5-10.1) mg/dL Magnesium (1.8-2.4) mg/dL Total Bilirubin (0.2-1.0) mg/dL AST (15-37) IU/L ALT (14-63) IU/L Alkaline Phosphatase (46-116) U/L Lactate Dehydrogenase (81-234) U/L Troponin I (0.000-0.056) ng/mL Total Protein (6.4-8.2) g/dL Albumin (3.4-5.0) g/dL Globulin (2.6-4.0) g/dL Albumin/Globulin Ratio (0.9-1.6) Lipase 162 (73-393) U/L Urine Color YELLOW Urine Appearance SLT CLOUDY Urine pH 5.0 (5.0-8.0) Ur Specific [place] <= 1.005 (1.001-1.035) Urine Protein NEGATIVE (NEGATIVE) mg/dL Urine Glucose (UA) NEGATIVE (NEGATIVE) mg/dL Urine Ketones NEGATIVE (NEGATIVE) mg/dL Urine Occult Blood MODERATE H (NEGATIVE) Urine Nitrite NEGATIVE (NEGATIVE) Urine Bilirubin NEGATIVE (NEGATIVE) Urine Urobilinogen 0.2 (<2.0) EU/dL Ur Leukocyte Esterase NEGATIVE (NEGATIVE) Urine RBC 1-3 (0-2/HPF) Urine WBC 0-1 (0-5/HPF) Ur Epithelial Cells RARE (NONE-FEW) Urine Bacteria RARE (NEGATIVE) 06/18/19 06/18/19 06/18/19 Range/Units 03:55 03:55 03:55 WBC 7.81 (4.0-11.0) K/uL RBC 3.91 L (4.50-5.90) M/uL Hgb 11.4 L (13.0-17.0) g/dL Hct 35.4 L (38.0-50.0) % MCV 90.5 (80.0-98.0) fL MCH 29.2 (27.0-32.0) pg MCHC 32.2 (31.0-37.0) g/dL RDW Std Deviation 52.7 (28.0-62.0) fl RDW Coeff of Ovi 16 H (11.0-15.0) % Plt Count 292 (150-400) K/uL MPV 10.40 (7.40-12.00) fL Neut % (Auto) 87.7 H (48.0-80.0) % Lymph % (Auto) 10.8 L (16.0-40.0) % [place] % (Auto) 1.3 (0.0-15.0) % Eos % (Auto) 0.1 (0.0-7.0) % Baso % (Auto) 0.1 (0.0-1.5) % Neut # (Auto) 6.9 H (1.4-5.7) K/uL Lymph # (Auto) 0.8 (0.6-2.4) K/uL [place] # (Auto) 0.1 (0.0-0.8) K/uL Eos # (Auto) 0.0 (0.0-0.7) K/uL Baso # (Auto) 0.0 (0.0-0.1) K/uL Nucleated RBC % 0.0 /100WBC Nucleated RBCs # 0 K/uL INR Lactate 2.2 H (0.20-2.00) mmol/L Sodium (136-148) mmol/L Potassium (3.5-5.1) mmol/L Chloride (98-107) mmol/L Carbon Dioxide (21.0-32.0) mmol/L BUN (7.0-18.0) mg/dL Creatinine (0.8-1.3) mg/dL Est Cr Clr Drug Dosing Estimated GFR (MDRD) ml/min Glucose (74-106) mg/dL Calcium (8.5-10.1) mg/dL Magnesium (1.8-2.4) mg/dL Total Bilirubin (0.2-1.0) mg/dL AST (15-37) IU/L ALT (14-63) IU/L Alkaline Phosphatase (46-116) U/L Lactate Dehydrogenase 298 H (81-234) U/L Troponin I (0.000-0.056) ng/mL Total Protein (6.4-8.2) g/dL Albumin (3.4-5.0) g/dL Globulin (2.6-4.0) g/dL Albumin/Globulin Ratio (0.9-1.6) Lipase (73-393) U/L Urine Color Urine Appearance Urine pH (5.0-8.0) Ur Specific [place] (1.001-1.035) Urine Protein (NEGATIVE) mg/dL Urine Glucose (UA) (NEGATIVE) mg/dL Urine Ketones (NEGATIVE) mg/dL Urine Occult Blood (NEGATIVE) Urine Nitrite (NEGATIVE) Urine Bilirubin (NEGATIVE) Urine Urobilinogen (<2.0) EU/dL Ur Leukocyte Esterase (NEGATIVE) Urine RBC (0-2/HPF) Urine WBC (0-5/HPF) Ur Epithelial Cells (NONE-FEW) Urine Bacteria (NEGATIVE) 06/18/19 06/18/19 06/18/19 Range/Units 03:55 09:55 13:06 WBC (4.0-11.0) K/uL RBC (4.50-5.90) M/uL Hgb (13.0-17.0) g/dL Hct (38.0-50.0) % MCV (80.0-98.0) fL MCH (27.0-32.0) pg MCHC (31.0-37.0) g/dL RDW Std Deviation (28.0-62.0) fl RDW Coeff of Ovi (11.0-15.0) % Plt Count (150-400) K/uL MPV (7.40-12.00) fL Neut % (Auto) (48.0-80.0) % Lymph % (Auto) (16.0-40.0) % [place] % (Auto) (0.0-15.0) % Eos % (Auto) (0.0-7.0) % Baso % (Auto) (0.0-1.5) % Neut # (Auto) (1.4-5.7) K/uL Lymph # (Auto) (0.6-2.4) K/uL [place] # (Auto) (0.0-0.8) K/uL Eos # (Auto) (0.0-0.7) K/uL Baso # (Auto) (0.0-0.1) K/uL Nucleated RBC % /100WBC Nucleated RBCs # K/uL INR Lactate 3.6 H 2.9 H (0.20-2.00) mmol/L Sodium (136-148) mmol/L Potassium (3.5-5.1) mmol/L Chloride (98-107) mmol/L Carbon Dioxide (21.0-32.0) mmol/L BUN (7.0-18.0) mg/dL Creatinine (0.8-1.3) mg/dL Est Cr Clr Drug Dosing Estimated GFR (MDRD) ml/min Glucose (74-106) mg/dL Calcium (8.5-10.1) mg/dL Magnesium 1.6 L (1.8-2.4) mg/dL Total Bilirubin (0.2-1.0) mg/dL AST (15-37) IU/L ALT (14-63) IU/L Alkaline Phosphatase (46-116) U/L Lactate Dehydrogenase (81-234) U/L Troponin I (0.000-0.056) ng/mL Total Protein (6.4-8.2) g/dL Albumin (3.4-5.0) g/dL Globulin (2.6-4.0) g/dL Albumin/Globulin Ratio (0.9-1.6) Lipase (73-393) U/L Urine Color Urine Appearance Urine pH (5.0-8.0) Ur Specific [place] (1.001-1.035) Urine Protein (NEGATIVE) mg/dL Urine Glucose (UA) (NEGATIVE) mg/dL Urine Ketones (NEGATIVE) mg/dL Urine Occult Blood (NEGATIVE) Urine Nitrite (NEGATIVE) Urine Bilirubin (NEGATIVE) Urine Urobilinogen (<2.0) EU/dL Ur Leukocyte Esterase (NEGATIVE) Urine RBC (0-2/HPF) Urine WBC (0-5/HPF) Ur Epithelial Cells (NONE-FEW) Urine Bacteria (NEGATIVE) Result Diagrams: 06/18/19 03:55 06/17/19 20:25 Orders Last 24hrs: Active Orders 24 hr Category Date Time Status Admission Status [Patient Status] [ADT] Stat ADT 06/17/19 21:28 Active Antiembolic Devices [RC] PER UNIT ROUTINE Care 06/18/19 09:13 Active Notify Provider Consults [RC] ASDIRECTED Care 06/18/19 11:10 Active Oxygen Therapy [RC] PRN Care 06/18/19 09:12 Active RT Aerosol Therapy [RC] ASDIRECTED Care 06/18/19 11:11 Active RT Incentive Spirometry [RC] Q1HWA Care 06/18/19 09:17 Active Telemetry Monitoring [Cardiac Monitoring] [RC] Q8H Care 06/17/19 22:18 Active Up ad Nette [RC] ASDIRECTED Care 06/18/19 09:12 Active VTE/DVT Education [RC] PER UNIT ROUTINE Care 06/18/19 09:12 Active Vital Signs [RC] Q4H Care 06/18/19 09:12 Active Consult to Physician [CONS] Routine Cons 06/18/19 11:10 Active Heart Healthy Diet [DIET] Diet 06/18/19 Lunch Active CBC WITH AUTO DIFF [HEME] AM Lab 06/19/19 05:11 Ordered COMPREHENSIVE METABOLIC PN,CMP [CHEM] AM Lab 06/19/19 05:11 Ordered CULTURE BLOOD [BC] Stat Lab 06/17/19 21:44 Received CULTURE BLOOD [BC] Stat Lab 06/17/19 22:13 Received LACTIC ACID,WHOLE BLOOD [BG] Q3H Lab 06/18/19 16:00 Ordered LACTIC ACID,WHOLE BLOOD [BG] Q3H Lab 06/18/19 19:00 Ordered LACTIC ACID,WHOLE BLOOD [BG] Q3H Lab 06/18/19 22:00 Ordered Acetaminophen [Tylenol] Med 06/17/19 23:18 Active 650 mg PO Q6H PRN Albuterol/Ipratropium [DuoNeb 3.0-0.5 MG/3 ML] Med 06/18/19 11:11 Active 3 ml NEB Q6HRRT PRN Aspirin [Halfprin] Med 06/19/19 09:00 Active 81 mg PO DAILY Azithromycin [Zithromax] 500 mg Med 06/18/19 09:30 Active Sodium Chloride 0.9% [Normal Saline (AdvBag)] 250 ml IV DAILY Enalapril [Vasotec] Med 06/18/19 10:15 Active 10 mg PO DAILY Omeprazole Magnesium [Prilosec] Med 06/18/19 10:15 Pending 2.5 mg PO BID Ondansetron [Zofran ODT] Med 06/18/19 09:12 Active 4 mg PO Q4H PRN Ondansetron [Zofran] Med 06/18/19 09:12 Active 4 mg IVPUSH Q4H PRN Sodium Chloride 0.9% [Normal Saline] 1,000 ml Med 06/18/19 10:13 Active IV Q8H Sodium Chloride 0.9% [Saline Flush] Med 06/17/19 20:29 Active 10 ml FLUSH ASDIRECTED PRN Sodium Chloride 0.9% [Saline Flush] Med 06/17/19 20:29 Active 2.5 ml FLUSH ASDIRECTED PRN cefTRIAXone [Rocephin in Dextrose,Iso-Osm 1 GM/50 ML] 1 Med 06/18/19 09:15 Active gm Premix Bag 1 bag IV Q24H hydroCHLOROthiazide Med 06/18/19 10:11 Active 25 mg PO DAILY oxyCODONE Med 06/17/19 23:19 Active 5 mg PO Q4H PRN Blood Culture x2 Reflex Set [OM.PC] Stat Oth 06/17/19 21:27 Ordered Saline Lock Insert [OM.PC] Stat Ot 06/17/19 20:29 Ordered Sequential Compression Device [OM.PC] Per Unit Routine Oth 06/18/19 09:12 Ordered Resuscitation Status Routine Resus Stat 06/18/19 09:12 Ordered Medication Orders Acetaminophen (Tylenol) 650 mg PO Q6H PRN PRN Reason: Pain Albuterol/Ipratropium (Duoneb 3.0-0.5 Mg/3 Ml) 3 ml NEB Q6HRRT PRN PRN Reason: Dyspnea Aspirin (Halfprin) 81 mg PO DAILY [facility] Enalapril Maleate (Vasotec) 10 mg PO DAILY [facility] Hydrochlorothiazide (Hydrochlorothiazide) 25 mg PO DAILY [facility] Last Admin: 06/18/19 10:38 Dose: 25 mg Azithromycin 500 mg/ Sodium (Chloride) 250 mls @ 250 mls/hr IV DAILY [facility] Last Admin: 06/18/19 10:08 Dose: 250 mls/hr Ceftriaxone Sodium/Dextrose 1 (gm/ Premix) 50 mls @ 100 mls/hr IV Q24H [facility] Last Admin: 06/18/19 09:34 Dose: 100 mls/hr Sodium Chloride (Normal Saline) 1,000 mls @ 125 mls/hr IV Q8H [facility] Last Admin: 06/18/19 10:39 Dose: 125 mls/hr Non-Formulary Medication (Omeprazole Magnesium [Prilosec]) 2.5 mg PO BID [facility] Ondansetron HCl (Zofran Odt) 4 mg PO Q4H PRN PRN Reason: nausea, able to take PO Ondansetron HCl (Zofran) 4 mg IVPUSH Q4H PRN PRN Reason: Nausea Oxycodone HCl (Oxycodone) 5 mg PO Q4H PRN PRN Reason: Pain (moderate 4-6) Sodium Chloride (Saline Flush) 10 ml FLUSH ASDIRECTED PRN PRN Reason: Keep Vein Open Last Admin: 06/17/19 20:47 Dose: 10 ml Sodium Chloride (Saline Flush) 2.5 ml FLUSH ASDIRECTED PRN PRN Reason: Keep Vein Open Last Admin: 06/17/19 20:47 Dose: 2.5 ml
[2019-06-18] MEDS ORDERED: Potassium Chloride 20 MEQ Tab.ER PO ONE (11:06)
[2019-06-18] MEDS ORDERED: Albuterol/Ipratropium 3.0-0.5 MG/3 ML Neb Soln NEB PRN (11:11)
[2019-06-18] MEDS ORDERED: Magnesium Sulfate/Water 2 GM in Premix Bag 1 BAG IV ONE (14:26)
[2019-06-19] MEDS: Sodium Chloride 0.9% 1,000 ML IV SCH ×2 (05:19→11:28)
[2019-06-19 06:22] LABS: CHLORIDE,CL 105 mmol/L (98-107); SODIUM,NA 142 mmol/L (136-148)
[2019-06-19] MEDS: Hydrochlorothiazide 25 MG Tab PO SCH (08:55)
[2019-06-19] MEDS: Aspirin 81 MG Tab.EC PO SCH (08:55)
[2019-06-19] MEDS: Azithromycin 500 MG in Sodium Chloride 0.9% 250 ML IV SCH (08:58)
[2019-06-19] MEDS: Nicotine 14 MG/24 Hr Patch TRDERM SCH (09:05)
[2019-06-19] MEDS: cefTRIAXone 1 GM in Premix Bag 1 BAG IV SCH (10:03)
--- NOTE | 2019-06-19 10:05 | PCM.PN ---
- General Info Date of Service: 06/19/19 Admission Dx/Problem (Free Text): Admission Diagnosis/Problem Admission Diagnosis/Problem Pneumonia, right middle lobe, cholecystitis with possible impacted gallstone. Subjective Update: The patient is a 73-year-old gentleman who was admitted to acute hospitalization on June 18, 2019 with right middle lobe and possible right lower lobe pneumonia. The patient today says that he feels somewhat better although he still has congestion and pain that is associated with his cholecystitis. Patient also has been evaluated by general surgeon. The patient has denied any fever or chills. Functional Status: Reports: Pain Controlled - Review of Systems General: Reports: No Symptoms HEENT: Reports: No Symptoms Pulmonary: Reports: Shortness of Breath, Wheezing Cardiovascular: Reports: No Symptoms Gastrointestinal: Reports: Abdominal Pain Genitourinary: Reports: No Symptoms Musculoskeletal: Reports: No Symptoms Skin: Reports: No Symptoms Neurological: Reports: No Symptoms Psychiatric: Reports: No Symptoms - Patient Data Vitals - Most Recent: Last Vital Signs Temp 36.5 C 06/19/19 08:00 Pulse 95 06/19/19 08:00 Resp 22 H 06/19/19 08:00 BP 167/77 H 06/19/19 08:56 Pulse Ox 95 06/19/19 08:00 Weight - Most Recent: 107.093 kg I&O - Last 24 Hours: Intake & Output 06/18/19 06/19/19 06/19/19 22:59 06:59 14:59 Intake Total 1745 1792 250 Output Total 450 750 Balance 1295 1042 250 Lab Results Last 24 Hours: Laboratory Results - last 24 hr 06/18/19 06/18/19 06/18/19 Range/Units 03:55 09:55 13:06 WBC (4.0-11.0) K/uL RBC (4.50-5.90) M/uL Hgb (13.0-17.0) g/dL Hct (38.0-50.0) % MCV (80.0-98.0) fL MCH (27.0-32.0) pg MCHC (31.0-37.0) g/dL RDW Std Deviation (28.0-62.0) fl RDW Coeff of Ovi (11.0-15.0) % Plt Count (150-400) K/uL MPV (7.40-12.00) fL Neut % (Auto) (48.0-80.0) % Lymph % (Auto) (16.0-40.0) % Haakon % (Auto) (0.0-15.0) % Eos % (Auto) (0.0-7.0) % Baso % (Auto) (0.0-1.5) % Neut # (Auto) (1.4-5.7) K/uL Lymph # (Auto) (0.6-2.4) K/uL [place] # (Auto) (0.0-0.8) K/uL Eos # (Auto) (0.0-0.7) K/uL Baso # (Auto) (0.0-0.1) K/uL Nucleated RBC % /100WBC Nucleated RBCs # K/uL Lactate 3.6 H 2.9 H (0.20-2.00) mmol/L Sodium (136-148) mmol/L Potassium (3.5-5.1) mmol/L Chloride (98-107) mmol/L Carbon Dioxide (21.0-32.0) mmol/L BUN (7.0-18.0) mg/dL Creatinine (0.8-1.3) mg/dL Est Cr Clr Drug Dosing mL/min Estimated GFR (MDRD) ml/min Glucose (74-106) mg/dL Calcium (8.5-10.1) mg/dL Magnesium 1.6 L (1.8-2.4) mg/dL Total Bilirubin (0.2-1.0) mg/dL AST (15-37) IU/L ALT (14-63) IU/L Alkaline Phosphatase (46-116) U/L Total Protein (6.4-8.2) g/dL Albumin (3.4-5.0) g/dL Globulin (2.6-4.0) g/dL Albumin/Globulin Ratio (0.9-1.6) 06/18/19 06/18/19 06/18/19 Range/Units 16:08 19:00 22:09 WBC (4.0-11.0) K/uL RBC (4.50-5.90) M/uL Hgb (13.0-17.0) g/dL Hct (38.0-50.0) % MCV (80.0-98.0) fL MCH (27.0-32.0) pg MCHC (31.0-37.0) g/dL RDW Std Deviation (28.0-62.0) fl RDW Coeff of Voi (11.0-15.0) % Plt Count (150-400) K/uL MPV (7.40-12.00) fL Neut % (Auto) (48.0-80.0) % Lymph % (Auto) (16.0-40.0) % [place] % (Auto) (0.0-15.0) % Eos % (Auto) (0.0-7.0) % Baso % (Auto) (0.0-1.5) % Neut # (Auto) (1.4-5.7) K/uL Lymph # (Auto) (0.6-2.4) K/uL [place] # (Auto) (0.0-0.8) K/uL Eos # (Auto) (0.0-0.7) K/uL Baso # (Auto) (0.0-0.1) K/uL Nucleated RBC % /100WBC Nucleated RBCs # K/uL Lactate 2.7 H 2.2 H 1.7 (0.20-2.00) mmol/L Sodium (136-148) mmol/L Potassium (3.5-5.1) mmol/L Chloride (98-107) mmol/L Carbon Dioxide (21.0-32.0) mmol/L BUN (7.0-18.0) mg/dL Creatinine (0.8-1.3) mg/dL Est Cr Clr Drug Dosing mL/min Estimated GFR (MDRD) ml/min Glucose (74-106) mg/dL Calcium (8.5-10.1) mg/dL Magnesium (1.8-2.4) mg/dL Total Bilirubin (0.2-1.0) mg/dL AST (15-37) IU/L ALT (14-63) IU/L Alkaline Phosphatase (46-116) U/L Total Protein (6.4-8.2) g/dL Albumin (3.4-5.0) g/dL Globulin (2.6-4.0) g/dL Albumin/Globulin Ratio (0.9-1.6) 06/19/19 06/19/19 Range/Units 05:50 05:50 WBC 11.95 H (4.0-11.0) K/uL RBC 3.76 L (4.50-5.90) M/uL Hgb 10.9 L (13.0-17.0) g/dL Hct 34.0 L (38.0-50.0) % MCV 90.4 (80.0-98.0) fL MCH 29.0 (27.0-32.0) pg MCHC 32.1 (31.0-37.0) g/dL RDW Std Deviation 52.5 (28.0-62.0) fl RDW Coeff of Ovi 16 H (11.0-15.0) % Plt Count 306 (150-400) K/uL MPV 10.60 (7.40-12.00) fL Neut % (Auto) 67.3 (48.0-80.0) % Lymph % (Auto) 23.4 (16.0-40.0) % [place] % (Auto) 8.4 (0.0-15.0) % Eos % (Auto) 0.6 (0.0-7.0) % Baso % (Auto) 0.3 (0.0-1.5) % Neut # (Auto) 8.1 H (1.4-5.7) K/uL Lymph # (Auto) 2.8 H (0.6-2.4) K/uL [place] # (Auto) 1.0 H (0.0-0.8) K/uL Eos # (Auto) 0.1 (0.0-0.7) K/uL Baso # (Auto) 0.0 (0.0-0.1) K/uL Nucleated RBC % 0.0 /100WBC Nucleated RBCs # 0 K/uL Lactate (0.20-2.00) mmol/L Sodium 142 (136-148) mmol/L Potassium 4.1 (3.5-5.1) mmol/L Chloride 105 (98-107) mmol/L Carbon Dioxide 28.2 (21.0-32.0) mmol/L BUN 24 H (7.0-18.0) mg/dL Creatinine 1.0 (0.8-1.3) mg/dL Est Cr Clr Drug Dosing 59.37 mL/min Estimated GFR (MDRD) > 60.0 ml/min Glucose 93 (74-106) mg/dL Calcium 8.6 (8.5-10.1) mg/dL Magnesium 1.9 (1.8-2.4) mg/dL Total Bilirubin 0.2 (0.2-1.0) mg/dL AST 28 (15-37) IU/L ALT 64 H (14-63) IU/L Alkaline Phosphatase 102 (46-116) U/L Total Protein 6.1 L (6.4-8.2) g/dL Albumin 2.8 L (3.4-5.0) g/dL Globulin 3.3 (2.6-4.0) g/dL Albumin/Globulin Ratio 0.9 (0.9-1.6) Bladimir Results Last 24 Hours: Microbiology 06/17/19 22:13 Aerobic Blood Culture - Preliminary Blood - Venous - Lab Draw NO GROWTH AFTER 1 DAY Anaerobic Blood Culture - Preliminary NO GROWTH AFTER 1 DAY 06/17/19 21:44 Aerobic Blood Culture - Preliminary Blood - Venous NO GROWTH AFTER 1 DAY Anaerobic Blood Culture - Preliminary NO GROWTH AFTER 1 DAY Med Orders - Current: Current Medications Acetaminophen (Tylenol) 650 mg PO Q6H PRN PRN Reason: Pain Albuterol/Ipratropium (Duoneb 3.0-0.5 Mg/3 Ml) 3 ml NEB Q6HRRT PRN PRN Reason: Dyspnea Aspirin (Halfprin) 81 mg PO DAILY [facility] Last Admin: 06/19/19 08:55 Dose: 81 mg Enalapril Maleate (Vasotec) 10 mg PO DAILY [facility] Last Admin: 06/19/19 08:56 Dose: 10 mg Hydrochlorothiazide (Hydrochlorothiazide) 25 mg PO DAILY [facility] Last Admin: 06/19/19 08:55 Dose: 25 mg Azithromycin 500 mg/ Sodium (Chloride) 250 mls @ 250 mls/hr IV DAILY [facility] Last Admin: 06/19/19 08:58 Dose: 250 mls/hr Ceftriaxone Sodium/Dextrose 1 (gm/ Premix) 50 mls @ 100 mls/hr IV Q24H [facility] Last Admin: 06/19/19 10:03 Dose: 100 mls/hr Sodium Chloride (Normal Saline) 1,000 mls @ 125 mls/hr IV Q8H [facility] Last Admin: 06/19/19 05:19 Dose: 125 mls/hr Nicotine (Habitrol) 14 mg TRDERM DAILY [facility] Last Admin: 06/19/19 09:05 Dose: 14 mg Ondansetron HCl (Zofran Odt) 4 mg PO Q4H PRN PRN Reason: nausea, able to take PO Ondansetron HCl (Zofran) 4 mg IVPUSH Q4H PRN PRN Reason: Nausea Oxycodone HCl (Oxycodone) 5 mg PO Q4H PRN PRN Reason: Pain (moderate 4-6) Sodium Chloride (Saline Flush) 10 ml FLUSH ASDIRECTED PRN PRN Reason: Keep Vein Open Last Admin: 06/17/19 20:47 Dose: 10 ml Sodium Chloride (Saline Flush) 2.5 ml FLUSH ASDIRECTED PRN PRN Reason: Keep Vein Open Last Admin: 06/17/19 20:47 Dose: 2.5 ml Discontinued Medications Albuterol/Ipratropium (Duoneb 3.0-0.5 Mg/3 Ml) 3 ml NEB ONETIME ONE Stop: 06/17/19 20:53 Last Admin: 06/17/19 20:58 Dose: 3 ml Aspirin (Aspirin) 324 mg PO ONETIME ONE Stop: 06/17/19 20:31 Last Admin: 06/17/19 20:31 Dose: 324 mg Aspirin (Aspirin) Confirm Administered Dose 324 mg .ROUTE .STK-MED ONE Stop: 06/17/19 20:29 Last Admin: 06/17/19 20:32 Dose: Not Given Enalapril Maleate (Vasotec) 1 mg PO DAILY [facility] Sodium Chloride (Normal Saline) 1,000 mls @ 999 mls/hr IV .Bolus ONE Stop: 06/17/19 21:29 Last Admin: 06/17/19 20:39 Dose: 999 mls/hr Ceftriaxone Sodium 1 gm/ (Sodium Chloride) 50 mls @ 100 mls/hr IV ONETIME ONE Stop: 06/17/19 21:30 Last Admin: 06/17/19 21:07 Dose: Not Given Azithromycin 500 mg/ Sodium (Chloride) 250 mls @ 250 mls/hr IV ONETIME [facility] Last Admin: 06/17/19 22:34 Dose: 250 mls/hr Ceftriaxone Sodium/Dextrose (Rocephin In Dextrose,Iso-Osm 1 Gm/50 Ml) Confirm Administered Dose 50 mls @ as directed .ROUTE .STK-MED ONE Stop: 06/17/19 21:05 Last Admin: 06/17/19 21:07 Dose: Not Given Ceftriaxone Sodium/Dextrose 1 (gm/ Premix) 50 mls @ 100 mls/hr IV ONETIME ONE Stop: 06/17/19 21:36 Last Admin: 06/17/19 21:08 Dose: 100 mls/hr Sodium Chloride (Normal Saline) 1,000 mls @ 100 mls/hr IV ASDIRECTED [facility] Last Admin: 06/18/19 08:38 Dose: 100 mls/hr Magnesium Sulfate 2 gm/ Premix 50 mls @ 25 mls/hr IV ONETIME ONE Stop: 06/18/19 16:25 Last Admin: 06/18/19 14:39 Dose: 25 mls/hr Iopamidol (Isovue-370 (76%)) 90 ml IVPUSH ONETIME ONE Stop: 06/17/19 21:55 Last Admin: 06/17/19 21:55 Dose: 90 ml Methylprednisolone Sodium Succinate (Solu-Medrol) 125 mg IVPUSH ONETIME ONE Stop: 06/17/19 20:56 Last Admin: 06/17/19 21:00 Dose: 125 mg Morphine Sulfate (Morphine) 2 mg IVPUSH ONETIME ONE Stop: 06/17/19 21:11 Last Admin: 06/17/19 21:16 Dose: 2 mg Nicotine (Habitrol) 14 mg TRDERM ONETIME ONE Stop: 06/17/19 22:21 Last Admin: 06/17/19 22:33 Dose: 14 mg Nitroglycerin (Nitrostat) 0.4 mg SL Q5M STA Stop: 06/17/19 20:36 Last Admin: 06/17/19 20:57 Dose: 0.4 mg Nitroglycerin (Nitrostat) Confirm Administered Dose 1.2 mg .ROUTE .STK-MED ONE Stop: 06/17/19 20:37 Last Admin: 06/17/19 20:41 Dose: Not Given Potassium Chloride (Klor-Con M20) 40 meq PO ONETIME ONE Stop: 06/18/19 11:07 Last Admin: 06/18/19 11:54 Dose: 40 meq - Exam Quality Assessment: No: Supplemental Oxygen General: Alert, Oriented, Cooperative, No Acute Distress HEENT: Pupils Equal, Pupils Reactive, EOMI, Mucous Membr. Moist/[place] Neck: Supple, Trachea Midline Lungs: Decreased Breath Sounds, Crackles, Rhonchi. No: Clear to Auscultation Cardiovascular: Regular Rate, Regular Rhythm GI/Abdominal Exam: Normal Bowel Sounds, Soft, No Distention, Tender (Right upper quadrant), Other (Obese) Extremities: No Pedal Edema. No: Normal Inspection (Polio as an infant, muscular atrophy right leg), Normal Range of Motion Skin: Warm, Dry, Intact Neurological: No New Focal Deficit Psy/Mental Status: Alert, Normal Affect, Normal Mood - Problem List & Annotations (1) Community acquired pneumonia SNOMED Code(s): 960811397 Code(s): J18.9 - PNEUMONIA, UNSPECIFIED ORGANISM Status: Acute Priority: High Current Visit: Yes Qualifiers: Laterality: right Lung location: middle lobe of lung Qualified Code(s): J18.1 - Lobar pneumonia, unspecified organism (2) Cholelithiasis SNOMED Code(s): 179034671 Code(s): K80.20 - CALCULUS OF GALLBLADDER W/O CHOLECYSTITIS W/O OBSTRUCTION Status: Acute Priority: High Current Visit: Yes Qualifiers: Cholelithiasis location: gallbladder Cholecystitis presence: without cholecystitis Biliary obstruction: without biliary obstruction Qualified Code(s): K80.20 - Calculus of gallbladder without cholecystitis without obstruction (3) Obesity (BMI 35.0-39.9 without comorbidity) SNOMED Code(s): 793335778, 518928127 Code(s): E66.9 - OBESITY, UNSPECIFIED Status: Acute Current Visit: Yes (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 The patient is currently on IV ceftriaxone and this will be continued for now. His fluids also be continued and 125 mL per hour. The patient's lactate had normalized. The patient also has a history of biliary colic and it shows that there is a 2.5 cm gallstone likely impacted in the gallbladder. He has been assessed by surgeon. No plans for cholecystectomy at the present time. Repeat laboratory studies been ordered. 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 The patient's electrolytes will be monitored and replaced as necessary. A repeat chest x-ray has also been ordered for the morning.
--- NOTE | 2019-06-19 11:00 | PCM.CONSN ---
- General Info Date of Service: 06/19/19 Subjective Update: Patient is feeling better today from his abdominal standpoint. No nausea or vomiting. - Review of Systems General: Denies: Fever, Weakness, Chills, Night Sweats HEENT: Reports: No Symptoms Pulmonary: Reports: Shortness of Breath, Wheezing Cardiovascular: Denies: Chest Pain, Palpitations Gastrointestinal: Reports: Flatus. Denies: Abdominal Pain, Decreased Appetite, Diarrhea, Hematochezia, Melena, Nausea, Vomiting Genitourinary: Reports: No Symptoms Musculoskeletal: Reports: No Symptoms Skin: Denies: Cyanosis, Jaundice Neurological: Denies: Confusion Psychiatric: Reports: No Symptoms - Patient Data Vitals - Most Recent: Last Vital Signs Temp 97.7 F 06/19/19 08:00 Pulse 95 06/19/19 08:00 Resp 22 H 06/19/19 08:00 BP 167/77 H 06/19/19 08:56 Pulse Ox 95 06/19/19 08:00 Weight - Most Recent: 236 lb 1.6 oz I&O - Last 24 Hours: Intake & Output 06/18/19 06/19/19 06/19/19 19:59 03:59 11:59 Intake Total 1795 2092 Output Total 450 750 Balance 1345 1342 Lab Results Last 24 Hours: Laboratory Results - last 24 hr 06/18/19 06/18/19 06/18/19 Range/Units 03:55 13:06 16:08 WBC (4.0-11.0) K/uL RBC (4.50-5.90) M/uL Hgb (13.0-17.0) g/dL Hct (38.0-50.0) % MCV (80.0-98.0) fL MCH (27.0-32.0) pg MCHC (31.0-37.0) g/dL RDW Std Deviation (28.0-62.0) fl RDW Coeff of Ovi (11.0-15.0) % Plt Count (150-400) K/uL MPV (7.40-12.00) fL Neut % (Auto) (48.0-80.0) % Lymph % (Auto) (16.0-40.0) % [place] % (Auto) (0.0-15.0) % Eos % (Auto) (0.0-7.0) % Baso % (Auto) (0.0-1.5) % Neut # (Auto) (1.4-5.7) K/uL Lymph # (Auto) (0.6-2.4) K/uL [place] # (Auto) (0.0-0.8) K/uL Eos # (Auto) (0.0-0.7) K/uL Baso # (Auto) (0.0-0.1) K/uL Nucleated RBC % /100WBC Nucleated RBCs # K/uL Lactate 2.9 H 2.7 H (0.20-2.00) mmol/L Sodium (136-148) mmol/L Potassium (3.5-5.1) mmol/L Chloride (98-107) mmol/L Carbon Dioxide (21.0-32.0) mmol/L BUN (7.0-18.0) mg/dL Creatinine (0.8-1.3) mg/dL Est Cr Clr Drug Dosing mL/min Estimated GFR (MDRD) ml/min Glucose (74-106) mg/dL Calcium (8.5-10.1) mg/dL Magnesium 1.6 L (1.8-2.4) mg/dL Total Bilirubin (0.2-1.0) mg/dL AST (15-37) IU/L ALT (14-63) IU/L Alkaline Phosphatase (46-116) U/L Total Protein (6.4-8.2) g/dL Albumin (3.4-5.0) g/dL Globulin (2.6-4.0) g/dL Albumin/Globulin Ratio (0.9-1.6) 06/18/19 06/18/19 06/19/19 Range/Units 19:00 22:09 05:50 WBC 11.95 H (4.0-11.0) K/uL RBC 3.76 L (4.50-5.90) M/uL Hgb 10.9 L (13.0-17.0) g/dL Hct 34.0 L (38.0-50.0) % MCV 90.4 (80.0-98.0) fL MCH 29.0 (27.0-32.0) pg MCHC 32.1 (31.0-37.0) g/dL RDW Std Deviation 52.5 (28.0-62.0) fl RDW Coeff of Ovi 16 H (11.0-15.0) % Plt Count 306 (150-400) K/uL MPV 10.60 (7.40-12.00) fL Neut % (Auto) 67.3 (48.0-80.0) % Lymph % (Auto) 23.4 (16.0-40.0) % [place] % (Auto) 8.4 (0.0-15.0) % Eos % (Auto) 0.6 (0.0-7.0) % Baso % (Auto) 0.3 (0.0-1.5) % Neut # (Auto) 8.1 H (1.4-5.7) K/uL Lymph # (Auto) 2.8 H (0.6-2.4) K/uL [place] # (Auto) 1.0 H (0.0-0.8) K/uL Eos # (Auto) 0.1 (0.0-0.7) K/uL Baso # (Auto) 0.0 (0.0-0.1) K/uL Nucleated RBC % 0.0 /100WBC Nucleated RBCs # 0 K/uL Lactate 2.2 H 1.7 (0.20-2.00) mmol/L Sodium (136-148) mmol/L Potassium (3.5-5.1) mmol/L Chloride (98-107) mmol/L Carbon Dioxide (21.0-32.0) mmol/L BUN (7.0-18.0) mg/dL Creatinine (0.8-1.3) mg/dL Est Cr Clr Drug Dosing mL/min Estimated GFR (MDRD) ml/min Glucose (74-106) mg/dL Calcium (8.5-10.1) mg/dL Magnesium (1.8-2.4) mg/dL Total Bilirubin (0.2-1.0) mg/dL AST (15-37) IU/L ALT (14-63) IU/L Alkaline Phosphatase (46-116) U/L Total Protein (6.4-8.2) g/dL Albumin (3.4-5.0) g/dL Globulin (2.6-4.0) g/dL Albumin/Globulin Ratio (0.9-1.6) 06/19/19 Range/Units 05:50 WBC (4.0-11.0) K/uL RBC (4.50-5.90) M/uL Hgb (13.0-17.0) g/dL Hct (38.0-50.0) % MCV (80.0-98.0) fL MCH (27.0-32.0) pg MCHC (31.0-37.0) g/dL RDW Std Deviation (28.0-62.0) fl RDW Coeff of Ovi (11.0-15.0) % Plt Count (150-400) K/uL MPV (7.40-12.00) fL Neut % (Auto) (48.0-80.0) % Lymph % (Auto) (16.0-40.0) % [place] % (Auto) (0.0-15.0) % Eos % (Auto) (0.0-7.0) % Baso % (Auto) (0.0-1.5) % Neut # (Auto) (1.4-5.7) K/uL Lymph # (Auto) (0.6-2.4) K/uL [place] # (Auto) (0.0-0.8) K/uL Eos # (Auto) (0.0-0.7) K/uL Baso # (Auto) (0.0-0.1) K/uL Nucleated RBC % /100WBC Nucleated RBCs # K/uL Lactate (0.20-2.00) mmol/L Sodium 142 (136-148) mmol/L Potassium 4.1 (3.5-5.1) mmol/L Chloride 105 (98-107) mmol/L Carbon Dioxide 28.2 (21.0-32.0) mmol/L BUN 24 H (7.0-18.0) mg/dL Creatinine 1.0 (0.8-1.3) mg/dL Est Cr Clr Drug Dosing 59.37 mL/min Estimated GFR (MDRD) > 60.0 ml/min Glucose 93 (74-106) mg/dL Calcium 8.6 (8.5-10.1) mg/dL Magnesium 1.9 (1.8-2.4) mg/dL Total Bilirubin 0.2 (0.2-1.0) mg/dL AST 28 (15-37) IU/L ALT 64 H (14-63) IU/L Alkaline Phosphatase 102 (46-116) U/L Total Protein 6.1 L (6.4-8.2) g/dL Albumin 2.8 L (3.4-5.0) g/dL Globulin 3.3 (2.6-4.0) g/dL Albumin/Globulin Ratio 0.9 (0.9-1.6) Bladimir Results Last 24 Hours: Microbiology 06/17/19 22:13 Aerobic Blood Culture - Preliminary Blood - Venous - Lab Draw NO GROWTH AFTER 1 DAY Anaerobic Blood Culture - Preliminary NO GROWTH AFTER 1 DAY 06/17/19 21:44 Aerobic Blood Culture - Preliminary Blood - Venous NO GROWTH AFTER 1 DAY Anaerobic Blood Culture - Preliminary NO GROWTH AFTER 1 DAY Med Orders - Current: Current Medications Acetaminophen (Tylenol) 650 mg PO Q6H PRN PRN Reason: Pain Albuterol/Ipratropium (Duoneb 3.0-0.5 Mg/3 Ml) 3 ml NEB Q6HRRT PRN PRN Reason: Dyspnea Aspirin (Halfprin) 81 mg PO DAILY [facility] Last Admin: 06/19/19 08:55 Dose: 81 mg Enalapril Maleate (Vasotec) 10 mg PO DAILY [facility] Last Admin: 06/19/19 08:56 Dose: 10 mg Hydrochlorothiazide (Hydrochlorothiazide) 25 mg PO DAILY [facility] Last Admin: 06/19/19 08:55 Dose: 25 mg Azithromycin 500 mg/ Sodium (Chloride) 250 mls @ 250 mls/hr IV DAILY [facility] Last Admin: 06/19/19 08:58 Dose: 250 mls/hr Ceftriaxone Sodium/Dextrose 1 (gm/ Premix) 50 mls @ 100 mls/hr IV Q24H [facility] Last Admin: 06/19/19 10:03 Dose: 100 mls/hr Nicotine (Habitrol) 14 mg TRDERM DAILY [facility] Last Admin: 06/19/19 09:05 Dose: 14 mg Ondansetron HCl (Zofran Odt) 4 mg PO Q4H PRN PRN Reason: nausea, able to take PO Ondansetron HCl (Zofran) 4 mg IVPUSH Q4H PRN PRN Reason: Nausea Oxycodone HCl (Oxycodone) 5 mg PO Q4H PRN PRN Reason: Pain (moderate 4-6) Sodium Chloride (Saline Flush) 10 ml FLUSH ASDIRECTED PRN PRN Reason: Keep Vein Open Last Admin: 06/17/19 20:47 Dose: 10 ml Sodium Chloride (Saline Flush) 2.5 ml FLUSH ASDIRECTED PRN PRN Reason: Keep Vein Open Last Admin: 06/17/19 20:47 Dose: 2.5 ml Discontinued Medications Albuterol/Ipratropium (Duoneb 3.0-0.5 Mg/3 Ml) 3 ml NEB ONETIME ONE Stop: 06/17/19 20:53 Last Admin: 06/17/19 20:58 Dose: 3 ml Aspirin (Aspirin) 324 mg PO ONETIME ONE Stop: 06/17/19 20:31 Last Admin: 06/17/19 20:31 Dose: 324 mg Aspirin (Aspirin) Confirm Administered Dose 324 mg .ROUTE .STK-MED ONE Stop: 06/17/19 20:29 Last Admin: 06/17/19 20:32 Dose: Not Given Enalapril Maleate (Vasotec) 1 mg PO DAILY [facility] Sodium Chloride (Normal Saline) 1,000 mls @ 999 mls/hr IV .Bolus ONE Stop: 06/17/19 21:29 Last Admin: 06/17/19 20:39 Dose: 999 mls/hr Ceftriaxone Sodium 1 gm/ (Sodium Chloride) 50 mls @ 100 mls/hr IV ONETIME ONE Stop: 06/17/19 21:30 Last Admin: 06/17/19 21:07 Dose: Not Given Azithromycin 500 mg/ Sodium (Chloride) 250 mls @ 250 mls/hr IV ONETIME [facility] Last Admin: 06/17/19 22:34 Dose: 250 mls/hr Ceftriaxone Sodium/Dextrose (Rocephin In Dextrose,Iso-Osm 1 Gm/50 Ml) Confirm Administered Dose 50 mls @ as directed .ROUTE .STK-MED ONE Stop: 06/17/19 21:05 Last Admin: 06/17/19 21:07 Dose: Not Given Ceftriaxone Sodium/Dextrose 1 (gm/ Premix) 50 mls @ 100 mls/hr IV ONETIME ONE Stop: 06/17/19 21:36 Last Admin: 06/17/19 21:08 Dose: 100 mls/hr Sodium Chloride (Normal Saline) 1,000 mls @ 100 mls/hr IV ASDIRECTED [facility] Last Admin: 06/18/19 08:38 Dose: 100 mls/hr Sodium Chloride (Normal Saline) 1,000 mls @ 125 mls/hr IV Q8H [facility] Last Admin: 06/19/19 05:19 Dose: 125 mls/hr Magnesium Sulfate 2 gm/ Premix 50 mls @ 25 mls/hr IV ONETIME ONE Stop: 06/18/19 16:25 Last Admin: 06/18/19 14:39 Dose: 25 mls/hr Iopamidol (Isovue-370 (76%)) 90 ml IVPUSH ONETIME ONE Stop: 06/17/19 21:55 Last Admin: 06/17/19 21:55 Dose: 90 ml Methylprednisolone Sodium Succinate (Solu-Medrol) 125 mg IVPUSH ONETIME ONE Stop: 06/17/19 20:56 Last Admin: 06/17/19 21:00 Dose: 125 mg Morphine Sulfate (Morphine) 2 mg IVPUSH ONETIME ONE Stop: 06/17/19 21:11 Last Admin: 06/17/19 21:16 Dose: 2 mg Nicotine (Habitrol) 14 mg TRDERM ONETIME ONE Stop: 06/17/19 22:21 Last Admin: 06/17/19 22:33 Dose: 14 mg Nitroglycerin (Nitrostat) 0.4 mg SL Q5M STA Stop: 06/17/19 20:36 Last Admin: 06/17/19 20:57 Dose: 0.4 mg Nitroglycerin (Nitrostat) Confirm Administered Dose 1.2 mg .ROUTE .STK-MED ONE Stop: 06/17/19 20:37 Last Admin: 06/17/19 20:41 Dose: Not Given Potassium Chloride (Klor-Con M20) 40 meq PO ONETIME ONE Stop: 06/18/19 11:07 Last Admin: 06/18/19 11:54 Dose: 40 meq - Exam Quality Assessment: Supplemental Oxygen General: Alert, Oriented, Cooperative, Mild Distress HEENT: Pupils Equal, Pupils Reactive, EOMI. No: Scleral Icterus Neck: Supple Lungs: Crackles, Rhonchi, Wheezing Cardiovascular: Regular Rate, Regular Rhythm GI/Abdominal Exam: Normal Bowel Sounds, Soft, Non-Tender (Male) Exam: No Hernia Back Exam: Normal Inspection, Full Range of Motion Extremities: Normal Inspection, Normal Range of Motion, Non-Tender, No Pedal Edema, Normal Capillary Refill Peripheral Pulses: 4+: Posterior Tibial (L), Posterior Tibial (R), Dorsalis Pedis (L), Dorsalis Pedis (R) Skin: Warm, Dry, Intact Neurological: No New Focal Deficit Psy/Mental Status: Alert, Normal Affect, Normal Mood Consult PN Assessment/Plan Procedures: Procedures AGENT NOS ASSAY W/OPTIC (06/10/18) BLOOD TYPING SEROLOGIC ABO (04/21/18) BLOOD TYPING SEROLOGIC RH(D) (04/21/18) CLOSTRIDIUM AG IA (10/27/18) COMPLETE CBC W/AUTO DIFF WBC (09/27/18) COMPREHEN METABOLIC PANEL (09/27/18) CRYPTOSPORIDIUM AG IA (06/10/18) ELECTROCARDIOGRAM TRACING (03/24/18) EMERGENCY DEPT VISIT (09/27/18) EMERGENCY DEPT VISIT (06/27/15) EXTREMITY STUDY (05/04/18) FLUOROSCOPY <1 HR PHYS/QHP (04/21/18) GIARDIA AG IA (06/10/18) HEMATOCRIT (04/21/18) HEMOGLOBIN (04/21/18) HYDRATION IV INFUSION INIT (09/27/18) LIPID PANEL (03/04/18) METABOLIC PANEL TOTAL CA (03/24/18) OFFICE/OUTPATIENT VISIT EST (06/10/18) OFFICE/OUTPATIENT VISIT EST (04/19/18) OFFICE/OUTPATIENT VISIT EST (03/24/18) OFFICE/OUTPATIENT VISIT EST (07/18/15) OT EVAL HIGH COMPLEX 60 MIN (02/16/18) PROTHROMBIN TIME (03/24/18) PT EVAL MOD COMPLEX 30 MIN (04/21/18) RBC ANTIBODY SCREEN (04/21/18) ROUTINE VENIPUNCTURE (09/27/18) STOOL CULTR AEROBIC BACT EA (06/10/18) THERAPEUTIC EXERCISES (04/21/18) URINALYSIS AUTO W/SCOPE (03/24/18) X-RAY EXAM CHEST 2 VIEWS (03/24/18) X-RAY EXAM HIP UNI 2-3 VIEWS (07/05/18) X-RAY EXAM HIPS BI 2 VIEWS (02/11/18) X-RAY EXAM OF FOOT (06/27/15) X-RAY EXAM OF PELVIS (04/19/18) (1) Cholelithiasis SNOMED Code(s): 480376087 Code(s): K80.20 - CALCULUS OF GALLBLADDER W/O CHOLECYSTITIS W/O OBSTRUCTION Priority: Medium Current Visit: Yes Qualifiers: Cholelithiasis location: gallbladder Cholecystitis presence: without cholecystitis Biliary obstruction: without biliary obstruction Qualified Code(s): K80.20 - Calculus of gallbladder without cholecystitis without obstruction (2) Community acquired pneumonia SNOMED Code(s): 810011651 Code(s): J18.9 - PNEUMONIA, UNSPECIFIED ORGANISM Priority: High Current Visit: Yes Qualifiers: Laterality: right Lung location: middle lobe of lung Qualified Code(s): J18.1 - Lobar pneumonia, unspecified organism Problem List Initiated/Reviewed/Updated: Yes Plan: Given his pneumonia, and the fact that he does not have an acute surgical abdomen, would not recommend surgical intervention at this time. Certainly, if he continues to have right upper quadrant pain and fatty food intolerance following resolution of his pneumonia, consideration could be given to a laparoscopic, possible open cholecystectomy. I will sign off for the present time.
[2019-06-20 06:52] LABS: CHLORIDE,CL 105 mmol/L (98-107); SODIUM,NA 142 mmol/L (136-148)
[2019-06-20 08:09] VITALS: BP 150/75
[2019-06-20] MEDS: cefTRIAXone 1 GM in Premix Bag 1 BAG IV SCH (08:45)
[2019-06-20] MEDS: Hydrochlorothiazide 25 MG Tab PO SCH (08:57)
[2019-06-20] MEDS: Aspirin 81 MG Tab.EC PO SCH (08:57)
[2019-06-20] MEDS: Nicotine 14 MG/24 Hr Patch TRDERM SCH (08:58)
--- NOTE | 2019-06-20 09:00 | PCM.PN ---
- General Info Date of Service: 06/20/19 Subjective Update: pt. seen at bedside in AM. States emphatically that he would like to go home today. States he's feeling better and "alive". Otherwise no other complaints or concerns at this time. Functional Status: Reports: Pain Controlled - Review of Systems General: Reports: No Symptoms HEENT: Reports: No Symptoms Pulmonary: Reports: Shortness of Breath, Cough, Sputum, Wheezing Cardiovascular: Reports: No Symptoms Gastrointestinal: Reports: Abdominal Pain (states some discomfort), Diarrhea, Nausea. Denies: Vomiting Musculoskeletal: Reports: No Symptoms Neurological: Reports: No Symptoms Psychiatric: Reports: No Symptoms - Patient Data Vitals - Most Recent: Last Vital Signs Temp 97.5 F 06/20/19 07:30 Pulse 71 06/20/19 07:30 Resp 16 06/20/19 07:30 BP 150/75 H 06/20/19 07:30 Pulse Ox 95 06/20/19 07:30 Weight - Most Recent: 236 lb 1.6 oz I&O - Last 24 Hours: Intake & Output 06/19/19 06/20/19 06/20/19 22:59 06:59 14:59 Intake Total 980 500 Output Total 525 300 Balance 455 200 Lab Results Last 24 Hours: Laboratory Results - last 24 hr 06/20/19 06/20/19 Range/Units 06:05 06:05 WBC 9.84 (4.0-11.0) K/uL RBC 3.98 L (4.50-5.90) M/uL Hgb 11.4 L (13.0-17.0) g/dL Hct 36.0 L (38.0-50.0) % MCV 90.5 (80.0-98.0) fL MCH 28.6 (27.0-32.0) pg MCHC 31.7 (31.0-37.0) g/dL RDW Std Deviation 53.0 (28.0-62.0) fl RDW Coeff of Ovi 16 H (11.0-15.0) % Plt Count 309 (150-400) K/uL MPV 10.70 (7.40-12.00) fL Neut % (Auto) 64.0 (48.0-80.0) % Lymph % (Auto) 25.0 (16.0-40.0) % [place] % (Auto) 8.6 (0.0-15.0) % Eos % (Auto) 1.8 (0.0-7.0) % Baso % (Auto) 0.6 (0.0-1.5) % Neut # (Auto) 6.3 H (1.4-5.7) K/uL Lymph # (Auto) 2.5 H (0.6-2.4) K/uL [place] # (Auto) 0.9 H (0.0-0.8) K/uL Eos # (Auto) 0.2 (0.0-0.7) K/uL Baso # (Auto) 0.1 (0.0-0.1) K/uL Nucleated RBC % 0.0 /100WBC Nucleated RBCs # 0 K/uL Sodium 142 (136-148) mmol/L Potassium 3.9 (3.5-5.1) mmol/L Chloride 105 (98-107) mmol/L Carbon Dioxide 28.0 (21.0-32.0) mmol/L BUN 18 (7.0-18.0) mg/dL Creatinine 0.9 (0.8-1.3) mg/dL Est Cr Clr Drug Dosing 65.97 mL/min Estimated GFR (MDRD) > 60.0 ml/min Glucose 87 (74-106) mg/dL Calcium 9.0 (8.5-10.1) mg/dL Bladimir Results Last 24 Hours: Microbiology 06/17/19 22:13 Aerobic Blood Culture - Preliminary Blood - Venous - Lab Draw NO GROWTH AFTER 2 DAYS Anaerobic Blood Culture - Preliminary NO GROWTH AFTER 2 DAYS 06/17/19 21:44 Aerobic Blood Culture - Preliminary Blood - Venous NO GROWTH AFTER 2 DAYS Anaerobic Blood Culture - Preliminary NO GROWTH AFTER 2 DAYS Med Orders - Current: Current Medications Acetaminophen (Tylenol) 650 mg PO Q6H PRN PRN Reason: Pain Albuterol/Ipratropium (Duoneb 3.0-0.5 Mg/3 Ml) 3 ml NEB Q6HRRT PRN PRN Reason: Dyspnea Aspirin (Halfprin) 81 mg PO DAILY [facility] Last Admin: 06/19/19 08:55 Dose: 81 mg Enalapril Maleate (Vasotec) 10 mg PO DAILY [facility] Last Admin: 06/19/19 08:56 Dose: 10 mg Hydrochlorothiazide (Hydrochlorothiazide) 25 mg PO DAILY [facility] Last Admin: 06/19/19 08:55 Dose: 25 mg Azithromycin 500 mg/ Sodium (Chloride) 250 mls @ 250 mls/hr IV DAILY [facility] Last Admin: 06/19/19 08:58 Dose: 250 mls/hr Ceftriaxone Sodium/Dextrose 1 (gm/ Premix) 50 mls @ 100 mls/hr IV Q24H [facility] Last Admin: 06/20/19 08:45 Dose: 100 mls/hr Nicotine (Habitrol) 14 mg TRDERM DAILY [facility] Last Admin: 06/19/19 09:05 Dose: 14 mg Ondansetron HCl (Zofran Odt) 4 mg PO Q4H PRN PRN Reason: nausea, able to take PO Ondansetron HCl (Zofran) 4 mg IVPUSH Q4H PRN PRN Reason: Nausea Oxycodone HCl (Oxycodone) 5 mg PO Q4H PRN PRN Reason: Pain (moderate 4-6) Sodium Chloride (Saline Flush) 10 ml FLUSH ASDIRECTED PRN PRN Reason: Keep Vein Open Last Admin: 06/17/19 20:47 Dose: 10 ml Sodium Chloride (Saline Flush) 2.5 ml FLUSH ASDIRECTED PRN PRN Reason: Keep Vein Open Last Admin: 06/17/19 20:47 Dose: 2.5 ml Discontinued Medications Albuterol/Ipratropium (Duoneb 3.0-0.5 Mg/3 Ml) 3 ml NEB ONETIME ONE Stop: 06/17/19 20:53 Last Admin: 06/17/19 20:58 Dose: 3 ml Aspirin (Aspirin) 324 mg PO ONETIME ONE Stop: 06/17/19 20:31 Last Admin: 06/17/19 20:31 Dose: 324 mg Aspirin (Aspirin) Confirm Administered Dose 324 mg .ROUTE .STK-MED ONE Stop: 06/17/19 20:29 Last Admin: 06/17/19 20:32 Dose: Not Given Enalapril Maleate (Vasotec) 1 mg PO DAILY [facility] Sodium Chloride (Normal Saline) 1,000 mls @ 999 mls/hr IV .Bolus ONE Stop: 06/17/19 21:29 Last Admin: 06/17/19 20:39 Dose: 999 mls/hr Ceftriaxone Sodium 1 gm/ (Sodium Chloride) 50 mls @ 100 mls/hr IV ONETIME ONE Stop: 06/17/19 21:30 Last Admin: 06/17/19 21:07 Dose: Not Given Azithromycin 500 mg/ Sodium (Chloride) 250 mls @ 250 mls/hr IV ONETIME [facility] Last Admin: 06/17/19 22:34 Dose: 250 mls/hr Ceftriaxone Sodium/Dextrose (Rocephin In Dextrose,Iso-Osm 1 Gm/50 Ml) Confirm Administered Dose 50 mls @ as directed .ROUTE .STK-MED ONE Stop: 06/17/19 21:05 Last Admin: 06/17/19 21:07 Dose: Not Given Ceftriaxone Sodium/Dextrose 1 (gm/ Premix) 50 mls @ 100 mls/hr IV ONETIME ONE Stop: 06/17/19 21:36 Last Admin: 06/17/19 21:08 Dose: 100 mls/hr Sodium Chloride (Normal Saline) 1,000 mls @ 100 mls/hr IV ASDIRECTED [facility] Last Admin: 06/18/19 08:38 Dose: 100 mls/hr Sodium Chloride (Normal Saline) 1,000 mls @ 125 mls/hr IV Q8H [facility] Last Admin: 06/19/19 11:28 Dose: Not Given Magnesium Sulfate 2 gm/ Premix 50 mls @ 25 mls/hr IV ONETIME ONE Stop: 06/18/19 16:25 Last Admin: 06/18/19 14:39 Dose: 25 mls/hr Iopamidol (Isovue-370 (76%)) 90 ml IVPUSH ONETIME ONE Stop: 06/17/19 21:55 Last Admin: 06/17/19 21:55 Dose: 90 ml Methylprednisolone Sodium Succinate (Solu-Medrol) 125 mg IVPUSH ONETIME ONE Stop: 06/17/19 20:56 Last Admin: 06/17/19 21:00 Dose: 125 mg Morphine Sulfate (Morphine) 2 mg IVPUSH ONETIME ONE Stop: 06/17/19 21:11 Last Admin: 06/17/19 21:16 Dose: 2 mg Nicotine (Habitrol) 14 mg TRDERM ONETIME ONE Stop: 06/17/19 22:21 Last Admin: 06/17/19 22:33 Dose: 14 mg Nitroglycerin (Nitrostat) 0.4 mg SL Q5M STA Stop: 06/17/19 20:36 Last Admin: 06/17/19 20:57 Dose: 0.4 mg Nitroglycerin (Nitrostat) Confirm Administered Dose 1.2 mg .ROUTE .STK-MED ONE Stop: 06/17/19 20:37 Last Admin: 06/17/19 20:41 Dose: Not Given Potassium Chloride (Klor-Con M20) 40 meq PO ONETIME ONE Stop: 06/18/19 11:07 Last Admin: 06/18/19 11:54 Dose: 40 meq - Exam Quality Assessment: No: Supplemental Oxygen General: Alert, Oriented HEENT: Pupils Equal, Pupils Reactive Neck: Supple Lungs: Decreased Breath Sounds, Crackles, Rhonchi, Wheezing Cardiovascular: Regular Rate, Regular Rhythm GI/Abdominal Exam: Normal Bowel Sounds, Soft, Tender (RUQ and epigastrum ) - Plan Plan:: The patient is a 73-year-old gentleman who had been admitted for right middle lobe community-acquired pneumonia. The patient is currently on IV ceftriaxone and this will be continued for now. His fluids also be continued and 125 mL per hour. The patient's lactate had normalized. The patient also has a history of biliary colic and it shows that there is a 2.5 cm gallstone likely impacted in the gallbladder. He has been assessed by surgeon. No plans for cholecystectomy at the present time. Repeat laboratory studies been ordered. 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 The patient's electrolytes will be monitored and replaced as necessary. A repeat chest x-ray has also been ordered for the morning.
--- NOTE | 2019-06-20 09:39 | CR ---
INDICATION: Pneumonia TECHNIQUE: Chest 1 views COMPARISON: 06/17/2019 FINDINGS: Cardiovascular and mediastinum: Heart size and vasculature are normal in caliber and appearance. Lungs and pleural spaces: Stable right lower and/or middle lobe consolidation. Remainder of the lungs and pleural spaces are clear. Bones and soft tissues: No significant findings. IMPRESSION: No change from the prior exam. Stable consolidation in the right middle and or lower lobe. Dictated by Roland Shields MD @ Jun 20 2019 9:36AM Signed by Dr. Roland Shields @ Jun 20 2019 9:37AM
[2019-06-20] MEDS: Azithromycin 500 MG in Sodium Chloride 0.9% 250 ML IV SCH (09:49)
--- NOTE | 2019-06-20 11:05 | PCM.DCSUM1 ---
<Alex Prieto - Last Filed: 06/20/19 14:55> Discharge Summary - Hospital Course Free Text/Narrative:: Discharge summary Admission date: June 18, 2019 Discharge date 05/31/2019 Admission diagnoses: right middle lobe/right lower lobe pneumonia Cholelithiasis Discharge diagnoses: Consultations: Dr. Chino of surgery Procedures: none Hospital course: patient is a 70-year-old male with significant past medical history including previous NC, hyperlipidemia, hypertension presenting to [facility] with 3 days of progressive chest discomfort predominantly located on the right side along with right-sided abdominal discomfort. On admission chest x-ray revealed right middle right lower lobe pneumonia and CT abdomen and pelvis showed cholelithiasis. Patient was initiated on azithromycin and ceftriaxone, DuoNeb's , and incentive spirometry. Dr. Chino for surgery was also consulted however patient was not a Candidate for surgical intervention; advised to follow up outpatient for assessment for cholelithiasis. Patient improved throughout stay ultimately discharged on remaining course of azithromycin and given additional 7 days of Keflex 500 mg twice a day. Patient advised to follow-up with surgery outpatient and PCP Dr. Kim within 1 week. Discharge condition: stable Disposition: home Discharge medications: Aspirin [[place] Aspirin EC] 81 mg PO DAILY 04/19/18 [History] Enalapril/Hydrochlorothiazide [Enalapril-HCTZ 10-25 MG] 1 tab PO DAILY 04/19/18 [History] Multivitamin [Multivitamins] 1 tab PO DAILY 04/19/18 [History] Omeprazole Magnesium [Prilosec] 20 mg PO BID 06/17/19 [History] Albuterol [Ventolin HFA] 1 puff .XX Q4HR PRN 30 Days #1 inhaler 06/20/19 [Rx] Azithromycin [Zithromax] 250 mg PO DAILY 2 Days #2 tab 06/20/19 [Rx] Cephalexin [Keflex] 500 mg PO BID 7 Days #14 capsule 06/20/19 [Rx] Discharge instructions: Follow-up: - Discharge Data Discharge Date: 06/20/19 Discharge Disposition: Home, Self-Care 01 Condition: Stable - Patient Summary/Data Consults: Consultations 06/18/19 11:10 Consult to Physician [CONS] Routine - Patient Instructions Diet: Weight Loss Diet Activity: As Tolerated Driving: May Drive Today Showering/Bathing: May Shower Notify Provider of: Fever, Increased Pain, Swelling and Redness, Drainage, Nausea and/or Vomiting Other/Special Instructions: additional symptoms to be concerned about: shortness of breath, chest pain , dizziness and naything new against your baseline. - Discharge Plan *PRESCRIPTION DRUG MONITORING PROGRAM REVIEWED*: No *COPY OF PRESCRIPTION DRUG MONITORING REPORT IN PATIENT JOJO: No Prescriptions/Med Rec: Albuterol [Ventolin HFA] 1 puff .XX Q4HR PRN 30 Days #1 inhaler PRN Reason: Shortness Of Breath Azithromycin [Zithromax] 250 mg PO DAILY 2 Days #2 tab Cephalexin [Keflex] 500 mg PO BID 7 Days #14 capsule Home Medications: Home Meds Aspirin [[place] Aspirin EC] 81 mg PO DAILY 04/19/18 [History] Enalapril/Hydrochlorothiazide [Enalapril-HCTZ 10-25 MG] 1 tab PO DAILY 04/19/18 [History] Multivitamin [Multivitamins] 1 tab PO DAILY 04/19/18 [History] Omeprazole Magnesium [Prilosec] 20 mg PO BID 06/17/19 [History] Albuterol [Ventolin HFA] 1 puff .XX Q4HR PRN 30 Days #1 inhaler 06/20/19 [Rx] Azithromycin [Zithromax] 250 mg PO DAILY 2 Days #2 tab 06/20/19 [Rx] Cephalexin [Keflex] 500 mg PO BID 7 Days #14 capsule 06/20/19 [Rx] Patient Handouts: Albuterol inhalation aerosol, Azithromycin tablets, Nonspecific Chest Pain, [id number], Cephalexin tablets or capsules, Community- Acquired Pneumonia, Adult, [id number] Referrals: Sharif Chino MD [Physician] - 07/05/19 9:00 am Ralph Kim MD [Physician] - 06/28/19 1:30 pm - Discharge Summary/Plan Comment DC Time >30 min.: No - Patient Data Vitals - Most Recent: Last Vital Signs Temp 97.5 F 06/20/19 07:30 Pulse 71 06/20/19 07:30 Resp 16 06/20/19 07:30 BP 150/75 H 06/20/19 08:56 Pulse Ox 95 06/20/19 08:00 Weight - Most Recent: 107.093 kg I&O - Last 24 hours: Intake & Output 06/19/19 06/20/19 06/20/19 22:59 06:59 14:59 Intake Total 980 500 Output Total 525 300 Balance 455 200 Lab Results - Last 24 hrs: Laboratory Results - last 24 hr 06/20/19 06/20/19 Range/Units 06:05 06:05 WBC 9.84 (4.0-11.0) K/uL RBC 3.98 L (4.50-5.90) M/uL Hgb 11.4 L (13.0-17.0) g/dL Hct 36.0 L (38.0-50.0) % MCV 90.5 (80.0-98.0) fL MCH 28.6 (27.0-32.0) pg MCHC 31.7 (31.0-37.0) g/dL RDW Std Deviation 53.0 (28.0-62.0) fl RDW Coeff of Ovi 16 H (11.0-15.0) % Plt Count 309 (150-400) K/uL MPV 10.70 (7.40-12.00) fL Neut % (Auto) 64.0 (48.0-80.0) % Lymph % (Auto) 25.0 (16.0-40.0) % [place] % (Auto) 8.6 (0.0-15.0) % Eos % (Auto) 1.8 (0.0-7.0) % Baso % (Auto) 0.6 (0.0-1.5) % Neut # (Auto) 6.3 H (1.4-5.7) K/uL Lymph # (Auto) 2.5 H (0.6-2.4) K/uL [place] # (Auto) 0.9 H (0.0-0.8) K/uL Eos # (Auto) 0.2 (0.0-0.7) K/uL Baso # (Auto) 0.1 (0.0-0.1) K/uL Nucleated RBC % 0.0 /100WBC Nucleated RBCs # 0 K/uL Sodium 142 (136-148) mmol/L Potassium 3.9 (3.5-5.1) mmol/L Chloride 105 (98-107) mmol/L Carbon Dioxide 28.0 (21.0-32.0) mmol/L BUN 18 (7.0-18.0) mg/dL Creatinine 0.9 (0.8-1.3) mg/dL Est Cr Clr Drug Dosing 65.97 mL/min Estimated GFR (MDRD) > 60.0 ml/min Glucose 87 (74-106) mg/dL Calcium 9.0 (8.5-10.1) mg/dL BONNIE Results - Last 24 hrs: Microbiology 06/17/19 22:13 Aerobic Blood Culture - Preliminary Blood - Venous - Lab Draw NO GROWTH AFTER 2 DAYS Anaerobic Blood Culture - Preliminary NO GROWTH AFTER 2 DAYS 06/17/19 21:44 Aerobic Blood Culture - Preliminary Blood - Venous NO GROWTH AFTER 2 DAYS Anaerobic Blood Culture - Preliminary NO GROWTH AFTER 2 DAYS Med Orders - Current: Current Medications Acetaminophen (Tylenol) 650 mg PO Q6H PRN PRN Reason: Pain Albuterol/Ipratropium (Duoneb 3.0-0.5 Mg/3 Ml) 3 ml NEB Q6HRRT PRN PRN Reason: Dyspnea Aspirin (Halfprin) 81 mg PO DAILY [facility] Last Admin: 06/20/19 08:57 Dose: 81 mg Enalapril Maleate (Vasotec) 10 mg PO DAILY [facility] Last Admin: 06/20/19 08:56 Dose: 10 mg Hydrochlorothiazide (Hydrochlorothiazide) 25 mg PO DAILY [facility] Last Admin: 06/20/19 08:57 Dose: 25 mg Azithromycin 500 mg/ Sodium (Chloride) 250 mls @ 250 mls/hr IV DAILY [facility] Last Admin: 06/20/19 09:49 Dose: 250 mls/hr Ceftriaxone Sodium/Dextrose 1 (gm/ Premix) 50 mls @ 100 mls/hr IV Q24H [facility] Last Admin: 06/20/19 08:45 Dose: 100 mls/hr Nicotine (Habitrol) 14 mg TRDERM DAILY [facility] Last Admin: 06/20/19 08:58 Dose: 14 mg Ondansetron HCl (Zofran Odt) 4 mg PO Q4H PRN PRN Reason: nausea, able to take PO Ondansetron HCl (Zofran) 4 mg IVPUSH Q4H PRN PRN Reason: Nausea Oxycodone HCl (Oxycodone) 5 mg PO Q4H PRN PRN Reason: Pain (moderate 4-6) Sodium Chloride (Saline Flush) 10 ml FLUSH ASDIRECTED PRN PRN Reason: Keep Vein Open Last Admin: 06/17/19 20:47 Dose: 10 ml Sodium Chloride (Saline Flush) 2.5 ml FLUSH ASDIRECTED PRN PRN Reason: Keep Vein Open Last Admin: 06/17/19 20:47 Dose: 2.5 ml Discontinued Medications Albuterol/Ipratropium (Duoneb 3.0-0.5 Mg/3 Ml) 3 ml NEB ONETIME ONE Stop: 06/17/19 20:53 Last Admin: 06/17/19 20:58 Dose: 3 ml Aspirin (Aspirin) 324 mg PO ONETIME ONE Stop: 06/17/19 20:31 Last Admin: 06/17/19 20:31 Dose: 324 mg Aspirin (Aspirin) Confirm Administered Dose 324 mg .ROUTE .STK-MED ONE Stop: 06/17/19 20:29 Last Admin: 06/17/19 20:32 Dose: Not Given Enalapril Maleate (Vasotec) 1 mg PO DAILY [facility] Sodium Chloride (Normal Saline) 1,000 mls @ 999 mls/hr IV .Bolus ONE Stop: 06/17/19 21:29 Last Admin: 06/17/19 20:39 Dose: 999 mls/hr Ceftriaxone Sodium 1 gm/ (Sodium Chloride) 50 mls @ 100 mls/hr IV ONETIME ONE Stop: 06/17/19 21:30 Last Admin: 06/17/19 21:07 Dose: Not Given Azithromycin 500 mg/ Sodium (Chloride) 250 mls @ 250 mls/hr IV ONETIME [facility] Last Admin: 06/17/19 22:34 Dose: 250 mls/hr Ceftriaxone Sodium/Dextrose (Rocephin In Dextrose,Iso-Osm 1 Gm/50 Ml) Confirm Administered Dose 50 mls @ as directed .ROUTE .STK-MED ONE Stop: 06/17/19 21:05 Last Admin: 06/17/19 21:07 Dose: Not Given Ceftriaxone Sodium/Dextrose 1 (gm/ Premix) 50 mls @ 100 mls/hr IV ONETIME ONE Stop: 06/17/19 21:36 Last Admin: 06/17/19 21:08 Dose: 100 mls/hr Sodium Chloride (Normal Saline) 1,000 mls @ 100 mls/hr IV ASDIRECTED [facility] Last Admin: 06/18/19 08:38 Dose: 100 mls/hr Sodium Chloride (Normal Saline) 1,000 mls @ 125 mls/hr IV Q8H [facility] Last Admin: 06/19/19 11:28 Dose: Not Given Magnesium Sulfate 2 gm/ Premix 50 mls @ 25 mls/hr IV ONETIME ONE Stop: 06/18/19 16:25 Last Admin: 06/18/19 14:39 Dose: 25 mls/hr Iopamidol (Isovue-370 (76%)) 90 ml IVPUSH ONETIME ONE Stop: 06/17/19 21:55 Last Admin: 06/17/19 21:55 Dose: 90 ml Methylprednisolone Sodium Succinate (Solu-Medrol) 125 mg IVPUSH ONETIME ONE Stop: 06/17/19 20:56 Last Admin: 06/17/19 21:00 Dose: 125 mg Morphine Sulfate (Morphine) 2 mg IVPUSH ONETIME ONE Stop: 06/17/19 21:11 Last Admin: 06/17/19 21:16 Dose: 2 mg Nicotine (Habitrol) 14 mg TRDERM ONETIME ONE Stop: 06/17/19 22:21 Last Admin: 06/17/19 22:33 Dose: 14 mg Nitroglycerin (Nitrostat) 0.4 mg SL Q5M STA Stop: 06/17/19 20:36 Last Admin: 06/17/19 20:57 Dose: 0.4 mg Nitroglycerin (Nitrostat) Confirm Administered Dose 1.2 mg .ROUTE .STK-MED ONE Stop: 06/17/19 20:37 Last Admin: 06/17/19 20:41 Dose: Not Given Potassium Chloride (Klor-Con M20) 40 meq PO ONETIME ONE Stop: 06/18/19 11:07 Last Admin: 06/18/19 11:54 Dose: 40 meq <Luis Manuel Varela - Last Filed: 06/20/19 19:30> Discharge Summary - Patient Summary/Data Consults: Consultations 06/18/19 11:10 Consult to Physician [CONS] Routine - Patient Data Vitals - Most Recent: Last Vital Signs Temp 36.4 C 06/20/19 07:30 Pulse 71 06/20/19 07:30 Resp 16 06/20/19 07:30 BP 150/75 H 06/20/19 08:56 Pulse Ox 95 06/20/19 08:00 I&O - Last 24 hours: Intake & Output 06/20/19 06/20/19 06/20/19 06:59 14:59 22:59 Intake Total 500 640 Output Total 300 Balance 200 640 Lab Results - Last 24 hrs: Laboratory Results - last 24 hr 06/20/19 06/20/19 Range/Units 06:05 06:05 WBC 9.84 (4.0-11.0) K/uL RBC 3.98 L (4.50-5.90) M/uL Hgb 11.4 L (13.0-17.0) g/dL Hct 36.0 L (38.0-50.0) % MCV 90.5 (80.0-98.0) fL MCH 28.6 (27.0-32.0) pg MCHC 31.7 (31.0-37.0) g/dL RDW Std Deviation 53.0 (28.0-62.0) fl RDW Coeff of Ovi 16 H (11.0-15.0) % Plt Count 309 (150-400) K/uL MPV 10.70 (7.40-12.00) fL Neut % (Auto) 64.0 (48.0-80.0) % Lymph % (Auto) 25.0 (16.0-40.0) % [place] % (Auto) 8.6 (0.0-15.0) % Eos % (Auto) 1.8 (0.0-7.0) % Baso % (Auto) 0.6 (0.0-1.5) % Neut # (Auto) 6.3 H (1.4-5.7) K/uL Lymph # (Auto) 2.5 H (0.6-2.4) K/uL [place] # (Auto) 0.9 H (0.0-0.8) K/uL Eos # (Auto) 0.2 (0.0-0.7) K/uL Baso # (Auto) 0.1 (0.0-0.1) K/uL Nucleated RBC % 0.0 /100WBC Nucleated RBCs # 0 K/uL Sodium 142 (136-148) mmol/L Potassium 3.9 (3.5-5.1) mmol/L Chloride 105 (98-107) mmol/L Carbon Dioxide 28.0 (21.0-32.0) mmol/L BUN 18 (7.0-18.0) mg/dL Creatinine 0.9 (0.8-1.3) mg/dL Est Cr Clr Drug Dosing 65.97 mL/min Estimated GFR (MDRD) > 60.0 ml/min Glucose 87 (74-106) mg/dL Calcium 9.0 (8.5-10.1) mg/dL BONNIE Results - Last 24 hrs: Microbiology 06/17/19 22:13 Aerobic Blood Culture - Preliminary Blood - Venous - Lab Draw NO GROWTH AFTER 2 DAYS Anaerobic Blood Culture - Preliminary NO GROWTH AFTER 2 DAYS 06/17/19 21:44 Aerobic Blood Culture - Preliminary Blood - Venous NO GROWTH AFTER 2 DAYS Anaerobic Blood Culture - Preliminary NO GROWTH AFTER 2 DAYS Med Orders - Current: Current Medications Discontinued Medications Acetaminophen (Tylenol) 650 mg PO Q6H PRN PRN Reason: Pain Albuterol/Ipratropium (Duoneb 3.0-0.5 Mg/3 Ml) 3 ml NEB ONETIME ONE Stop: 06/17/19 20:53 Last Admin: 06/17/19 20:58 Dose: 3 ml Albuterol/Ipratropium (Duoneb 3.0-0.5 Mg/3 Ml) 3 ml NEB Q6HRRT PRN PRN Reason: Dyspnea Aspirin (Aspirin) 324 mg PO ONETIME ONE Stop: 06/17/19 20:31 Last Admin: 06/17/19 20:31 Dose: 324 mg Aspirin (Aspirin) Confirm Administered Dose 324 mg .ROUTE .STK-MED ONE Stop: 06/17/19 20:29 Last Admin: 06/17/19 20:32 Dose: Not Given Aspirin (Halfprin) 81 mg PO DAILY [facility] Last Admin: 06/20/19 08:57 Dose: 81 mg Enalapril Maleate (Vasotec) 1 mg PO DAILY [facility] Enalapril Maleate (Vasotec) 10 mg PO DAILY [facility] Last Admin: 06/20/19 08:56 Dose: 10 mg Hydrochlorothiazide (Hydrochlorothiazide) 25 mg PO DAILY [facility] Last Admin: 06/20/19 08:57 Dose: 25 mg Sodium Chloride (Normal Saline) 1,000 mls @ 999 mls/hr IV .Bolus ONE Stop: 06/17/19 21:29 Last Admin: 06/17/19 20:39 Dose: 999 mls/hr Ceftriaxone Sodium 1 gm/ (Sodium Chloride) 50 mls @ 100 mls/hr IV ONETIME ONE Stop: 06/17/19 21:30 Last Admin: 06/17/19 21:07 Dose: Not Given Azithromycin 500 mg/ Sodium (Chloride) 250 mls @ 250 mls/hr IV ONETIME [facility] Last Admin: 06/17/19 22:34 Dose: 250 mls/hr Ceftriaxone Sodium/Dextrose (Rocephin In Dextrose,Iso-Osm 1 Gm/50 Ml) Confirm Administered Dose 50 mls @ as directed .ROUTE .STK-MED ONE Stop: 06/17/19 21:05 Last Admin: 06/17/19 21:07 Dose: Not Given Ceftriaxone Sodium/Dextrose 1 (gm/ Premix) 50 mls @ 100 mls/hr IV ONETIME ONE Stop: 06/17/19 21:36 Last Admin: 06/17/19 21:08 Dose: 100 mls/hr Sodium Chloride (Normal Saline) 1,000 mls @ 100 mls/hr IV ASDIRECTED [facility] Last Admin: 06/18/19 08:38 Dose: 100 mls/hr Azithromycin 500 mg/ Sodium (Chloride) 250 mls @ 250 mls/hr IV DAILY [facility] Last Admin: 06/20/19 09:49 Dose: 250 mls/hr Ceftriaxone Sodium/Dextrose 1 (gm/ Premix) 50 mls @ 100 mls/hr IV Q24H [facility] Last Admin: 06/20/19 08:45 Dose: 100 mls/hr Sodium Chloride (Normal Saline) 1,000 mls @ 125 mls/hr IV Q8H [facility] Last Admin: 06/19/19 11:28 Dose: Not Given Magnesium Sulfate 2 gm/ Premix 50 mls @ 25 mls/hr IV ONETIME ONE Stop: 06/18/19 16:25 Last Admin: 06/18/19 14:39 Dose: 25 mls/hr Iopamidol (Isovue-370 (76%)) 90 ml IVPUSH ONETIME ONE Stop: 06/17/19 21:55 Last Admin: 06/17/19 21:55 Dose: 90 ml Methylprednisolone Sodium Succinate (Solu-Medrol) 125 mg IVPUSH ONETIME ONE Stop: 06/17/19 20:56 Last Admin: 06/17/19 21:00 Dose: 125 mg Morphine Sulfate (Morphine) 2 mg IVPUSH ONETIME ONE Stop: 06/17/19 21:11 Last Admin: 06/17/19 21:16 Dose: 2 mg Nicotine (Habitrol) 14 mg TRDERM ONETIME ONE Stop: 06/17/19 22:21 Last Admin: 06/17/19 22:33 Dose: 14 mg Nicotine (Habitrol) 14 mg TRDERM DAILY [facility] Last Admin: 06/20/19 08:58 Dose: 14 mg Nitroglycerin (Nitrostat) 0.4 mg SL Q5M STA Stop: 06/17/19 20:36 Last Admin: 06/17/19 20:57 Dose: 0.4 mg Nitroglycerin (Nitrostat) Confirm Administered Dose 1.2 mg .ROUTE .STK-MED ONE Stop: 06/17/19 20:37 Last Admin: 06/17/19 20:41 Dose: Not Given Ondansetron HCl (Zofran Odt) 4 mg PO Q4H PRN PRN Reason: nausea, able to take PO Ondansetron HCl (Zofran) 4 mg IVPUSH Q4H PRN PRN Reason: Nausea Oxycodone HCl (Oxycodone) 5 mg PO Q4H PRN PRN Reason: Pain (moderate 4-6) Potassium Chloride (Klor-Con M20) 40 meq PO ONETIME ONE Stop: 06/18/19 11:07 Last Admin: 06/18/19 11:54 Dose: 40 meq Sodium Chloride (Saline Flush) 10 ml FLUSH ASDIRECTED PRN PRN Reason: Keep Vein Open Last Admin: 06/17/19 20:47 Dose: 10 ml Sodium Chloride (Saline Flush) 2.5 ml FLUSH ASDIRECTED PRN PRN Reason: Keep Vein Open Last Admin: 06/17/19 20:47 Dose: 2.5 ml - Free Text/Narrative Note: I have evaluated the patient. I have discussed findings and treatment plan with resident. I agree with the assessment and plan outlined in the following note.
== END 2019-06-20 12:25 | disposition home or self-care (01) ==
LOC: MW.ED 20:22 → MW.MS 21:28
PROVIDERS: ADMIT Internal Medicine; ATTEND Internal Medicine
DX: J18.1 Lobar pneumonia, unspecified organism (principal); K80.20 Calculus of gallbladder without cholecystitis without obstruction; E87.6 Hypokalemia; I10 Essential (primary) hypertension; I25.2 Old myocardial infarction; E78.00 Pure hypercholesterolemia, unspecified; E66.9 Obesity, unspecified; F17.210 Nicotine dependence, cigarettes, uncomplicated; R91.1 Solitary pulmonary nodule; Z88.6 Allergy status to analgesic agent; Z86.12 Personal history of poliomyelitis; Z79.82 Long term (current) use of aspirin; Z79.899 Other long term (current) drug therapy; Z68.38 Body mass index [BMI] 38.0-38.9, adult
CPT/HCPCS: 36415; 71045; 74177; 76705; 80048; 80053; 81001; 83605; 83615; 83690; 83735; 84484; 85025; 85610; 87040; 93005; 96365; 96367; 96375; 99285; A9270; J0456; J0696; J2270; J2930; J3475; J7040; J7050; Q9967; 96361; 96366; 96376; 99283; G0378; J7620-GY

== ENCOUNTER 2019-11-15 09:52 | Emergency (ER) | payer MEDICARE, BC ==
[2019-11-15] MEDS ORDERED: methylPREDNISolone Sodium Succinate 125 MG/2 ML SDV IVPUSH ONE (10:20)
[2019-11-15] MEDS ORDERED: Sodium Chloride 0.9% 2.5 ML Syringe FLUSH PRN (10:20)
[2019-11-15] MEDS ORDERED: Albuterol/Ipratropium 3.0-0.5 MG/3 ML Neb Soln NEB ONE ×2 (10:20→15:23)
[2019-11-15] MEDS ORDERED: Sodium Chloride 0.9% 10 ML Syringe FLUSH PRN (10:20)
[2019-11-15 10:57] LABS: CARBON DIOXIDE,CO2 28.1 mmol/L (21.0-32.0); POTASSIUM,K 3.5 mmol/L (3.5-5.1)
--- NOTE | 2019-11-15 11:42 | CR ---
Chest: AP portable view of the chest was obtained. Comparison: Previous chest x-ray 07/14/19. Increasing density within the right lung base. Uncertain how much of this represents increasing lung collapse, consolidation from possible pneumonia versus pleural effusion. Left lung is clear. Heart size is slightly enlarged but accentuated from portable technique. Bony structures are grossly intact. Impression: 1. Increasing density within the right lung base as an interval change from previous exam. Please see above for differential. 2. No additional abnormality is seen on portable chest x-ray. Diagnostic code #5 This report was dictated in [place] Standard Time
[2019-11-15 14:33] VITALS: BP 92/53; PULSE 88
--- NOTE | 2019-11-15 14:43 | EDM.PDOC ---
ED HPI GENERAL MEDICAL PROBLEM - General Chief Complaint: Respiratory Problem Stated Complaint: COUGH Time Seen by Provider: 11/15/19 10:07 - History of Present Illness INITIAL COMMENTS - FREE TEXT/NARRATIVE: Patient complaining of increased shortness of breath x4 days arrive with low pulse oximetry on room air of 75 and does not use home oxygen recently diagnosed with lung cancer and started chemotherapy x1 dose. Denies any cardiac history denies any chest pain denies any fever chills productive cough patient also denies any abdominal pain. He feels better with oxygen applied on arrival and patient seen on arrival Onset: Gradual Duration: Day(s): Severity: Severe Improves with: Reports: Other (Application of oxygen) Worsens with: Reports: Breathing, Movement Treatments GYNECOLOGIST: Reports: EKG, Oxygen - Related Data Allergies Allergy/AdvReac Type Severity Reaction Status Date / Time celecoxib [From Celebrex] Allergy Rash Verified 06/17/19 23:04 Home Meds: Home Meds Enalapril/Hydrochlorothiazide [Enalapril-HCTZ 10-25 MG] 1 tab PO DAILY 04/19/18 [History] Omeprazole Magnesium [Prilosec] 20 mg PO BID 06/17/19 [History] Albuterol [Ventolin HFA] 1 puff .XX Q4HR PRN 30 Days #1 inhaler 06/20/19 [Rx] Sertraline [Zoloft] 25 mg PO ASDIRECTED 11/15/19 [History] Zolpidem Tartrate [Ambien] 5 mg PO ASDIRECTED 11/15/19 [History] Past Medical History HEENT History: Reports: Other (See Below) Other HEENT History: wears glasses, has dentures but does not wear them Cardiovascular History: Reports: High Cholesterol, Hypertension Respiratory History: Reports: Other (See Below) Other Respiratory History: 60 yr hx of smoking, currently smokes 1 pack of cigarettes per day Gastrointestinal History: Reports: None Other Gastrointestinal History: Current C-diff Musculoskeletal History: Reports: Arthritis, Fracture Other Musculoskeletal History: hx fx rt ankle Neurological History: Reports: Other (See Below) Endocrine/Metabolic History: Reports: Obesity/BMI 30+ Oncologic (Cancer) History: Reports: Lung - Infectious Disease History Infectious Disease History: Reports: Chicken Pox, Measles, Mumps - Past Surgical History Head Surgeries/Procedures: Reports: None GI Surgical History: Reports: Appendectomy Neurological Surgical History: Reports: C-Spine Other Neurological Surgeries/Procedures: hx neck surgery Musculoskeletal Surgical History: Reports: Hip Replacement, Other (See Below) Other Musculoskeletal Surgeries/Procedures:: hx left knee surgery Social & Family History - Family History Family Medical History: Noncontributory - Tobacco Use Smoking Status *Q: Former Smoker Years of Tobacco use: 60 Packs/Tins Daily: 1 Used Tobacco, but Quit: Yes Month/Year Tobacco Last Used: 4 month - Caffeine Use Caffeine Use: Reports: Coffee - Recreational Drug Use Recreational Drug Use: No ED ROS GENERAL - Review of Systems Review Of Systems: See Below Constitutional: Denies: Fever, Chills, Malaise, Weakness HEENT: Reports: No Symptoms Respiratory: Reports: Shortness of Breath, Wheezing, Cough. Denies: Pleuritic Chest Pain Cardiovascular: Reports: Dyspnea on Exertion. Denies: Chest Pain, Blood Pressure Problem, Edema, Syncope Endocrine: Reports: No Symptoms GI/Abdominal: Reports: No Symptoms Musculoskeletal: Reports: No Symptoms Skin: Reports: No Symptoms Neurological: Reports: No Symptoms Hematologic/Lymphatic: Reports: No Symptoms Immunologic: Reports: No Symptoms ED EXAM, GENERAL - Physical Exam Exam: See Below Exam Limited By: No Limitations General Appearance: Alert, Moderate Distress Ears: Normal External Exam, Normal Canal, Hearing Grossly Normal, Normal TMs Ear Exam: Bilateral Ear: Auricle Normal, Canal Normal, TM normal Nose: Normal Inspection, Normal Mucosa, No Blood Throat/Mouth: Normal Inspection, Normal Lips, Normal Teeth, Normal Gums, Normal Oropharynx, Normal Voice, No Airway Compromise Respiratory/Chest: Respiratory Distress, Wheezing Cardiovascular: Normal Peripheral Pulses, Regular Rate, Rhythm, No Edema, No JVD , No Murmur GI/Abdominal: Normal Bowel Sounds, Soft, Non-Tender, No Organomegaly, No Distention, No Abnormal Bruit, No Mass Back Exam: Normal Inspection, Full Range of Motion, NT Extremities: Normal Inspection, Normal Range of Motion, Non-Tender, Normal Capillary Refill, No Pedal Edema Neurological: Alert, Oriented, CN II-XII Intact, Normal Cognition, Normal Gait, Normal Reflexes, No Motor/Sensory Deficits Psychiatric: Normal Affect, Normal Mood Skin Exam: Warm, Dry, Intact, Normal Color, No Rash Lymphatic: No Adenopathy EKG INTERPRETATION EKG Date: 11/15/19 Rhythm: NSR [place]: Normal P-Wave: Present QRS: Normal ST-T: Normal Course - Vital Signs Last Recorded V/S: Last Vital Signs Temp 96.1 F 11/15/19 14:20 Pulse 88 11/15/19 14:20 Resp 28 H 11/15/19 14:20 BP 92/53 L 11/15/19 14:20 Pulse Ox 90 L 11/15/19 14:20 - Orders/Labs/Meds Orders: Active Orders 24 hr Category Date Time Status EKG Documentation Completion [RC] STAT Care 11/15/19 10:20 Active RT Aerosol Therapy [RC] ASDIRECTED Care 11/15/19 10:20 Active CULTURE BLOOD [BC] Stat Lab 11/15/19 10:55 Results CULTURE BLOOD [BC] Stat Lab 11/15/19 11:00 Received Sodium Chloride 0.9% [Saline Flush] Med 11/15/19 10:20 Active 10 ml FLUSH ASDIRECTED PRN Sodium Chloride 0.9% [Saline Flush] Med 11/15/19 10:20 Active 2.5 ml FLUSH ASDIRECTED PRN Blood Culture x2 Reflex Set [OM.PC] Stat Oth 11/15/19 10:20 Ordered Saline Lock Insert [OM.PC] Stat Oth 11/15/19 10:20 Ordered Medication Orders Sodium Chloride (Saline Flush) 10 ml FLUSH ASDIRECTED PRN PRN Reason: Keep Vein Open Sodium Chloride (Saline Flush) 2.5 ml FLUSH ASDIRECTED PRN PRN Reason: Keep Vein Open Labs: Laboratory Tests 11/15/19 11/15/19 11/15/19 Range/Units 10:11 10:11 10:11 WBC 10.87 (4.0-11.0) K/uL RBC 4.44 L (4.50-5.90) M/uL Hgb 12.9 L (13.0-17.0) g/dL Hct 38.8 (38.0-50.0) % MCV 87.4 (80.0-98.0) fL MCH 29.1 (27.0-32.0) pg MCHC 33.2 (31.0-37.0) g/dL RDW Std Deviation 53.0 (28.0-62.0) fl RDW Coeff of Ovi 17 H (11.0-15.0) % Plt Count 340 (150-400) K/uL MPV 10.90 (7.40-12.00) fL Neut % (Auto) 83.1 H (48.0-80.0) % Lymph % (Auto) 9.3 L (16.0-40.0) % [place] % (Auto) 6.9 (0.0-15.0) % Eos % (Auto) 0.4 (0.0-7.0) % Baso % (Auto) 0.3 (0.0-1.5) % Neut # (Auto) 9.0 H (1.4-5.7) K/uL Lymph # (Auto) 1.0 (0.6-2.4) K/uL [place] # (Auto) 0.8 (0.0-0.8) K/uL Eos # (Auto) 0.0 (0.0-0.7) K/uL Baso # (Auto) 0.0 (0.0-0.1) K/uL Nucleated RBC % 0.0 /100WBC Nucleated RBCs # 0 K/uL ABG pH (7.35-7.45) ABG pCO2 (35-45) mmHG ABG pO2 (75-100) mmHG ABG HCO3 (22-26) mEq/L ABG Total CO2 ABG Base Excess (-2.0-2.0) Lactate 1.7 (0.20-2.00) mmol/L Sodium 135 L (136-148) mmol/L Potassium 3.5 (3.5-5.1) mmol/L Chloride 96 L (98-107) mmol/L Carbon Dioxide 28.1 (21.0-32.0) mmol/L BUN 34 H (7.0-18.0) mg/dL Creatinine 1.2 (0.8-1.3) mg/dL Est Cr Clr Drug Dosing 46.98 mL/min Estimated GFR (MDRD) 59.2 ml/min Glucose 112 H (74-106) mg/dL Calcium 9.5 (8.5-10.1) mg/dL Total Bilirubin 0.4 (0.2-1.0) mg/dL AST 27 (15-37) IU/L ALT 26 (14-63) IU/L Alkaline Phosphatase 65 (46-116) U/L Troponin I 0.127 H* (0.000-0.056) ng/mL B-Natriuretic Peptide (<100) PG/ML Total Protein 8.0 (6.4-8.2) g/dL Albumin 3.4 (3.4-5.0) g/dL Globulin 4.6 H (2.6-4.0) g/dL Albumin/Globulin Ratio 0.7 L (0.9-1.6) 11/15/19 11/15/19 11/15/19 Range/Units 10:11 10:35 13:27 WBC (4.0-11.0) K/uL RBC (4.50-5.90) M/uL Hgb (13.0-17.0) g/dL Hct (38.0-50.0) % MCV (80.0-98.0) fL MCH (27.0-32.0) pg MCHC (31.0-37.0) g/dL RDW Std Deviation (28.0-62.0) fl RDW Coeff of Ovi (11.0-15.0) % Plt Count (150-400) K/uL MPV (7.40-12.00) fL Neut % (Auto) (48.0-80.0) % Lymph % (Auto) (16.0-40.0) % [place] % (Auto) (0.0-15.0) % Eos % (Auto) (0.0-7.0) % Baso % (Auto) (0.0-1.5) % Neut # (Auto) (1.4-5.7) K/uL Lymph # (Auto) (0.6-2.4) K/uL [place] # (Auto) (0.0-0.8) K/uL Eos # (Auto) (0.0-0.7) K/uL Baso # (Auto) (0.0-0.1) K/uL Nucleated RBC % /100WBC Nucleated RBCs # K/uL ABG pH 7.451 H (7.35-7.45) ABG pCO2 38 (35-45) mmHG ABG pO2 66 L (75-100) mmHG ABG HCO3 26 (22-26) mEq/L ABG Total CO2 23.6 ABG Base Excess 2.2 H (-2.0-2.0) Lactate (0.20-2.00) mmol/L Sodium (136-148) mmol/L Potassium (3.5-5.1) mmol/L Chloride (98-107) mmol/L Carbon Dioxide (21.0-32.0) mmol/L BUN (7.0-18.0) mg/dL Creatinine (0.8-1.3) mg/dL Est Cr Clr Drug Dosing mL/min Estimated GFR (MDRD) ml/min Glucose (74-106) mg/dL Calcium (8.5-10.1) mg/dL Total Bilirubin (0.2-1.0) mg/dL AST (15-37) IU/L ALT (14-63) IU/L Alkaline Phosphatase (46-116) U/L Troponin I 0.107 H* (0.000-0.056) ng/mL B-Natriuretic Peptide 167 H (<100) PG/ML Total Protein (6.4-8.2) g/dL Albumin (3.4-5.0) g/dL Globulin (2.6-4.0) g/dL Albumin/Globulin Ratio (0.9-1.6) Meds: Medications Generic Name Dose Route Start Last Admin Trade Name Freq PRN Reason Stop Dose Admin Sodium Chloride 10 ml 11/15/19 10:20 Saline Flush FLUSH ASDIRECTED PRN Keep Vein Open Sodium Chloride 2.5 ml 11/15/19 10:20 Saline Flush FLUSH ASDIRECTED PRN Keep Vein Open Discontinued Medications Generic Name Dose Route Start Last Admin Trade Name Freq PRN Reason Stop Dose Admin Albuterol/Ipratropium 3 ml 11/15/19 10:20 11/15/19 10:29 Duoneb 3.0-0.5 Mg/3 Ml NEB 11/15/19 10:21 3 ml ONETIME ONE Administration Methylprednisolone Sodium Succinate 125 mg 11/15/19 10:20 11/15/19 10:43 Solu-Medrol IVPUSH 11/15/19 10:21 125 mg ONETIME ONE Administration Departure - Departure Time of Disposition: 14:42 Disposition: DC/Tfer to [facility] 02 Clinical Impression: Pleural effusion, right, Hypoxia, Elevated troponin level Clinical Impression: (Ruled Out): Pleural effusion - Discharge Information Referrals: Kim,Ralph G, MD [Primary Care Provider] - Sepsis Event Note - Evaluation Sepsis Screening Result: No Definite Risk - Focused Exam Vital Signs: Vital Signs Temp Pulse Resp BP Pulse Ox 11/15/19 14:20 96.1 F 88 28 H 92/53 L 90 L 11/15/19 11:29 70 16 128/67 95 11/15/19 10:40 78 20 94 L 11/15/19 10:19 97.5 F 72 26 H 111/59 L 75 L Date Exam was Performed: 11/15/19 Time Exam was Performed: 14:38 - My Orders Last 24 Hours: My Active Orders 11/15/19 10:20 EKG Documentation Completion [RC] STAT - Assessment/Plan Last 24 Hours: My Active Orders 11/15/19 10:20 EKG Documentation Completion [RC] STAT
[2019-11-15] MEDS ORDERED: Albuterol/Ipratropium 3.0-0.5 MG/3 ML Neb Soln ONE (15:24)
== END 2019-11-15 16:22 ==
LOC: MW.ED 09:52
DX: J90 Pleural effusion, not elsewhere classified (principal); R09.02 Hypoxemia; R79.89 Other specified abnormal findings of blood chemistry; C34.90 Malignant neoplasm of unspecified part of unspecified bronchus or lung; I10 Essential (primary) hypertension; E66.9 Obesity, unspecified; Z90.49 Acquired absence of other specified parts of digestive tract; Z79.899 Other long term (current) drug therapy; Z88.8 Allergy status to other drugs, medicaments and biological substances; Z87.891 Personal history of nicotine dependence
CPT/HCPCS: 36415; 36600; 71045; 80053; 82803; 83605; 83880; 84484; 85025; 87040; 87804; 93005; 94640; 96374; 99285; J2930; J7620-GY

== ENCOUNTER 2020-03-28 04:43 | Inpatient (IN) | payer MEDICARE, BC ==
[2020-03-28] MEDS ORDERED: Sodium Chloride 0.9% 10 ML Syringe FLUSH PRN (05:01)
[2020-03-28] MEDS ORDERED: fentaNYL 50 MCG/ML SDV IVPUSH ONE (05:01)
[2020-03-28] MEDS ORDERED: Sodium Chloride 0.9% 2.5 ML Syringe FLUSH PRN (05:01)
[2020-03-28] MEDS ORDERED: Sodium Chloride 0.9% 10 ML SDV IV PRN (05:01)
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
[2020-03-28] MEDS ORDERED: Ondansetron 4 MG/2 ML SDV IVPUSH ONE ×2 (05:15)
[2020-03-28] MEDS ORDERED: Ondansetron 4 MG/2 ML SDV ONE (05:15)
[2020-03-28 05:31] LABS: BLOOD UREA NITROGEN,BUN 36 mg/dL (7.0-18.0); CARBON DIOXIDE,CO2 24.2 mmol/L (21.0-32.0); CHLORIDE,CL 94 mmol/L (98-107); GLUCOSE RANDOM 122 mg/dL (74-106); LIPASE 136 U/L (73-393); POTASSIUM,K 3.6 mmol/L (3.5-5.1); SODIUM,NA 130 mmol/L (136-148)
[2020-03-28] MEDS ORDERED: Lactated Ringers 1,000 ML IV ONE (05:38)
--- NOTE | 2020-03-28 05:44 | CR ---
INDICATION: Right upper quadrant pain TECHNIQUE: Chest 1 views COMPARISON: Chest x-ray 01/10/2020 FINDINGS: Cardiovascular and mediastinum: Borderline heart size with mild shift of the heart and mediastinum to the right. Lungs and pleural spaces: Mild volume loss in the right hemithorax consistent with some underlying atelectasis with masslike opacity at the right mid to lower lung. Small right pleural effusion with right pleural catheter. Linear atelectasis or scarring left upper lobe. Bones and soft tissues: No significant findings. IMPRESSION: Small right pleural effusion with masslike density at the right middle and lower lung similar to minimally increased compared to the prior exam. Dictated by Reymundo Ac MD @ Mar 28 2020 5:41AM Signed by Dr. Reymundo Ac @ Mar 28 2020 5:43AM
[2020-03-28] MEDS ORDERED: Iopamidol 755 MG/ML 500 ML Multipack Bottle IVPUSH STA (06:27)
--- NOTE | 2020-03-28 06:39 | CT ---
INDICATION: Right upper quadrant pain. COMPARISON: CT PET 06 Mar 2020 and 29 November 2019. TECHNIQUE: 100 mL Isovue-370 IV contrast. FINDINGS: Top of liver is clipped from the margin of film. Circumferential thick pleural thickening and suggestion of band of peripheral consolidation in the visualized right hemithorax. Uniform liver enhancement. Large lamellated but not significantly mineralized gallstone at the proximal neck of the gallbladder. No biliary ductal dilatation. Small subcentimeter low-attenuation nodule rightward adrenal body. Mild levoscoliosis. Atherosclerotic calcification of aorta diffusely without aneurysmal dilatation. No retroperitoneal or mesenteric pathologic adenopathy. Redundant colon. Sigmoid diverticulosis with less pronounced of all of the descending colon. No acute inflammation. No small bowel dilatation or inflammation in. Left hip prosthesis. IMPRESSION: 1. Incomplete visualization of pleural thickening and peripheral airspace opacity in the visualized right lung base. Patient has known lung cancer and is undergoing treatment. CT of the chest recommended if there is clinical concern. 2. No source for right upper quadrant pain appreciated within the visualized abdomen. 3. Chronic cholelithiasis possibly impacted stone at the neck. 4. Small chronic benign right adrenal adenoma. 5. Left colon diverticulosis. 6. Scoliosis. Please note that all CT scans at this facility use dose modulation, iterative reconstruction, and/or weight-based dosing when appropriate to reduce radiation dose to as low as reasonably achievable. Dictated by Low Hudson MD @ Mar 28 2020 6:31AM Signed by Dr. Low Hudson @ Mar 28 2020 6:38AM
--- NOTE | 2020-03-28 06:45 | CT ---
INDICATION: Right upper quadrant pain radiating to chest. COMPARISON : PET scan 06 Mar 2020 and 29 November 2019. TECHNIQUE: 100 mL Isovue-370 IV contrast. FINDINGS: Mild circumferential pleural thickening and peripheral band of consolidation in the parenchyma of the remaining right lung. Obstructing perihilar mass causing complete collapse of right middle lobe. Tunneled pleuro vac drain tip is medial cephalad margin abutting the fat of the mediastinum. No significant pleural effusion. Minor dependent atelectasis in the left lung. No other significant left lung parenchymal finding. No pathologic adenopathy. IMPRESSION: Obstructing parahilar mass causing complete collapse of the right middle lobe. Pleural thickening and peripheral consolidation of the right lung similar to the CT comparison. Chronic tunneled pleuro vac. Please note that all CT scans at this facility use dose modulation, iterative reconstruction, and/or weight-based dosing when appropriate to reduce radiation dose to as low as reasonably achievable. Dictated by Low Hudson MD @ Mar 28 2020 6:38AM Signed by Dr. Low Hudson @ Mar 28 2020 6:44AM
[2020-03-28] MEDS ORDERED: Ondansetron 4 MG/2 ML SDV IVPUSH PRN (07:58)
[2020-03-28] MEDS ORDERED: HYDROmorphone 2 MG/ML Syringe IVPUSH PRN (07:58)
[2020-03-28] MEDS ORDERED: Promethazine 25 MG/ML SDV IM PRN (07:58)
[2020-03-28] MEDS ORDERED: Sodium Chloride 0.9% 1,000 ML IV SCH (08:00)
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
[2020-03-28] MEDS: Heparin Sodium 5,000 Units/ML Vial SUBCUT SCH ×2 (08:48→15:24)
[2020-03-28] MEDS: Pantoprazole 40 MG in Sodium Chloride 0.9% 10 ML IV SCH ×2 (08:54→20:43)
[2020-03-28] MEDS ORDERED: Pantoprazole 40 MG Vial IV SCH (09:00)
[2020-03-28] MEDS ORDERED: Albuterol 8 GM Inhaler INH PRN (09:49)
[2020-03-28] MEDS ORDERED: Levofloxacin/Dextrose 5%-Water 750 MG in Premix Bag 1 BAG IV SCH (10:00)
[2020-03-28] MEDS ORDERED: HYDROmorphone 1 MG/ML Syringe IVPUSH PRN (10:14)
[2020-03-28] MEDS: Sodium Chloride 0.9% 1,000 ML IV SCH (10:35)
[2020-03-28] MEDS: Escitalopram 10 MG Tab PO SCH (10:55)
[2020-03-28] MEDS: Albuterol/Ipratropium 3.0-0.5 MG/3 ML Neb Soln NEB SCH ×2 (12:23→17:16)
[2020-03-28] MEDS ORDERED: Melatonin 3 MG Tab PO PRN (15:00)
[2020-03-28] MEDS: LORazepam 0.5 MG Tab PO PRN (20:59)
[2020-03-28] MEDS ORDERED: traZODone 50 MG Tab PO SCH (21:00)
[2020-03-29] MEDS: Albuterol/Ipratropium 3.0-0.5 MG/3 ML Neb Soln NEB SCH ×3 (00:54→11:04)
[2020-03-29] MEDS: Heparin Sodium 5,000 Units/ML Vial SUBCUT SCH ×2 (00:54→08:42)
[2020-03-29] MEDS: Sodium Chloride 0.9% 1,000 ML IV SCH (00:55)
[2020-03-29] MEDS: LORazepam 0.5 MG Tab PO PRN (06:07)
[2020-03-29 06:38] LABS: CARBON DIOXIDE,CO2 22.8 mmol/L (21.0-32.0); POTASSIUM,K 3.6 mmol/L (3.5-5.1)
[2020-03-29] MEDS ORDERED: Levothyroxine 100 MCG Tab PO SCH (07:30)
[2020-03-29] MEDS ORDERED: Magnesium Sulfate/Water 2 GM in Premix Bag 1 BAG IV ONE (08:06)
[2020-03-29 08:19] VITALS: PULSE 70
[2020-03-29] MEDS: Escitalopram 10 MG Tab PO SCH (08:50)
[2020-03-29] MEDS: Pantoprazole 40 MG in Sodium Chloride 0.9% 10 ML IV SCH (08:51)
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
[2020-03-29 12:23] VITALS: BP 92/49
== END 2020-03-29 14:00 | disposition home or self-care (01) | DRG 682 ==
LOC: MW.ED 04:43 → MW.MS 06:58
PROVIDERS: ADMIT Internal Medicine; ATTEND Internal Medicine
DX: N17.9 Acute kidney failure, unspecified (principal); R10.11 Right upper quadrant pain; C34.91 Malignant neoplasm of unspecified part of right bronchus or lung; J18.9 Pneumonia, unspecified organism; T74.01XA Adult neglect or abandonment, confirmed, initial encounter; G89.3 Neoplasm related pain (acute) (chronic); R11.2 Nausea with vomiting, unspecified; C34.2 Malignant neoplasm of middle lobe, bronchus or lung; H54.7 Unspecified visual loss; J96.11 Chronic respiratory failure with hypoxia; I10 Essential (primary) hypertension; J44.0 Chronic obstructive pulmonary disease with (acute) lower respiratory infection; R32 Unspecified urinary incontinence; I50.30 Unspecified diastolic (congestive) heart failure; T81.49XA Infection following a procedure, other surgical site, initial encounter; A49.02 Methicillin resistant Staphylococcus aureus infection, unspecified site; Z96.649 Presence of unspecified artificial hip joint; J44.9 Chronic obstructive pulmonary disease, unspecified; I25.10 Atherosclerotic heart disease of native coronary artery without angina pectoris; I25.2 Old myocardial infarction; E78.5 Hyperlipidemia, unspecified; E87.1 Hypo-osmolality and hyponatremia; Z88.8 Allergy status to other drugs, medicaments and biological substances; Z66 Do not resuscitate; F41.9 Anxiety disorder, unspecified; K80.20 Calculus of gallbladder without cholecystitis without obstruction; E66.9 Obesity, unspecified; E86.0 Dehydration; R19.7 Diarrhea, unspecified; I11.0 Hypertensive heart disease with heart failure; E78.00 Pure hypercholesterolemia, unspecified; M19.90 Unspecified osteoarthritis, unspecified site; B95.62 Methicillin resistant Staphylococcus aureus infection as the cause of diseases classified elsewhere; Z86.12 Personal history of poliomyelitis; Z87.39 Personal history of other diseases of the musculoskeletal system and connective tissue; Z99.81 Dependence on supplemental oxygen; Z79.899 Other long term (current) drug therapy; Z87.891 Personal history of nicotine dependence; Z68.38 Body mass index [BMI] 38.0-38.9, adult
CPT/HCPCS: 36415; 71045; 71045-26; 71260; 71260-26; 74177; 74177-26; 80053; 81003; 83690; 83735; 84100; 84484; 85025; 87045; 87046; 87324; 87899; 93005; 94640; 96361; 96374; 96375; 99285-25; A9270-GY; C9113; J1644; J1956; J2405; J3010; J3370; J3475; J7030; J7050; J7120; J7620-GY; Q9967

== ENCOUNTER 2020-05-27 03:28 | Emergency (ER) | payer MEDICARE, BC, MEDICAID ==
[2020-05-27] MEDS ORDERED: Sodium Chloride 0.9% 10 ML Syringe FLUSH PRN (03:38)
[2020-05-27] MEDS ORDERED: Sodium Chloride 0.9% 2.5 ML Syringe FLUSH PRN (03:38)
--- NOTE | 2020-05-27 03:47 | EDM.PDOC ---
ED HPI GENERAL MEDICAL PROBLEM - General Chief Complaint: Respiratory Problem Stated Complaint: BACK PAIN Time Seen by Provider: 05/27/20 03:31 - History of Present Illness INITIAL COMMENTS - FREE TEXT/NARRATIVE: History of present illness: [] The home corsetier tells me that she seen him 2 nights last night and tonight. He has been short of breath both nights but he is an oxygen dependent patient with stage IV lung cancer. The patient also according to nurse has swelling around the right sided posterior thoracic tube. It is more puffy and more red tonight. The patient does not complain of any pain there. It should be noted the son Irwin is his power of trade mark attorney according to the corsetier. The [id number] is the person who had the corsetier bring him to the hospital. He is angry about that because he does not really want to be here. He does not flatly refuse evaluation of the medical conditions that cause concern for the home corsetier and the [id number]. His recent admission at beginning last month shows that he came in for dehydration, acute kidney injury, right upper quadrant abdominal pain and cleared up easily. Tube in the right thorax is a Pleur-evac tube. At that time he was sent home with an HFA inhaler. The home corsetier says she is never seen him use it and did not know that he has it. He also was on Bactrim twice a day at that time. Review of systems: As per history of present illness and below otherwise all systems reviewed and negative. Past medical history: As per history of present illness and as reviewed below otherwise noncontributory. Surgical history: As per history of present illness and as reviewed below otherwise noncontributory. Social history: No reported history of drug or alcohol abuse. Family history: As per history of present illness and as reviewed below otherwise noncontributory. Physical exam: Constitutional - well developed, well-nourished and in no acute distress HEENT - normocephalic, no evidence of trauma - external nose and mouth normal - no mass in neck and no JVD - mucosae moist EYES - full EOM, PERRL, no icterus - no evidence of inflammation, injection, or drainage Respiratory - no respiratory distress, equal bilateral expansion, lungs clear to auscultation and no abnormal lung sounds Cardiovascular - Regular Rhythm with S1 and S2 appreciated and no murmur, gallop or rub. Peripheral pulses symmetrically normal in all four extremities GI - abdomen soft without distension or organomegaly - normal bowel sounds - no guard or rebound Musculoskeletal no gross deformity of long bones or joints - no tenderness, swelling or edema Neurologic - Alert and oriented times four - CN II-XII grossly intact - motor sensory and coordination symmetrically normal Psychiatric - appropriate mood and affect with normal thought content Hematologic - No petechiae or purpura - mucosa appropriate color and sclera not pale - normal nail bed color and refill Integument - no rash or evidence of trauma - normal turgor Diagnostics: [] Therapeutics: [] Impression: [] Plan: [] Definitive disposition and diagnosis as appropriate pending reevaluation and review of above. - Related Data Allergies Allergy/AdvReac Type Severity Reaction Status Date / Time celecoxib [From Celebrex] Allergy Rash Verified 05/27/20 03:34 Home Meds: Home Meds Albuterol [Ventolin HFA] 1 puff INH Q4HR PRN 03/28/20 [History] Cholestyramine (With Sugar) [Questran Powder] 2 - 4 gm PO BID PRN 03/28/20 [History] Escitalopram [Lexapro] 10 mg PO DAILY 03/28/20 [History] Ipratropium/Albuterol Sulfate [Iprat-Albut 0.5-3(2.5) MG/3 ML] 3 ml NEB Q6H 03/28/20 [History] LORazepam [Lorazepam] 0.5 mg PO TID PRN 03/28/20 [History] Levothyroxine [Synthroid] 100 mcg PO ACBREAKFAST 03/28/20 [History] Potassium Chloride 10 meq PO BIDMEALS 03/28/20 [History] traZODone HCl [Trazodone HCl] 100 mg PO BEDTIME 03/28/20 [History] Doxycycline [Vibramycin] 100 mg PO BID #10 cap 03/29/20 [Rx] Enalapril/Hydrochlorothiazide [Enalapril-HCTZ 10-25 MG] 10 - 25 mg PO DAILY #0 03/29/20 [Rx] Furosemide 40 mg PO DAILY #0 03/29/20 [Rx] Gauze Bandage 1 each TP Q72H #1 box 03/29/20 [Rx] Polyhexam Biguan/Non-Adh Band [Telfa 3"X4" Non-Adherent Pad] 1 each TP Q72H #1 box 03/29/20 [Rx] Sodium Chloride [Saline Wound Wash] 210 ml TP Q72H #1 bottle 03/29/20 [Rx] Transparent Dressing [Tegaderm] 1 each TP Q72H #1 box 03/29/20 [Rx] Doxycycline Hyclate 100 mg PO BID #20 capsule 05/27/20 [Rx] Past Medical History HEENT History: Reports: Other (See Below) Other HEENT History: wears glasses, has dentures but does not wear them Cardiovascular History: Reports: Heart Failure, High Cholesterol, Hypertension Respiratory History: Reports: COPD, Other (See Below) Other Respiratory History: 60 yr hx of smoking, quit smoking july 2019. Oxygen dependent 2.5 L NC Gastrointestinal History: Reports: Chronic Diarrhea Other Gastrointestinal History: Current C-diff Genitourinary History: Reports: Urinary Incontinence Musculoskeletal History: Reports: Arthritis, Fracture Other Musculoskeletal History: hx fx rt ankle Neurological History: Reports: Other (See Below) (history polio with residual R leg weakness, non ambulatory) Psychiatric History: Reports: None Endocrine/Metabolic History: Reports: Obesity/BMI 30+ Oncologic (Cancer) History: Reports: Lung (metastatic small cell lung cancer of the right lung (on oral chemotherapy) stage IV) - Infectious Disease History Infectious Disease History: Reports: MRSA, Other (See Below) Other Infectious Disease History: polio - Past Surgical History Respiratory Surgical History: Reports: Other (See Below) Social & Family History - Family History Family Medical History: Noncontributory - Caffeine Use Caffeine Use: Reports: Coffee - Living Situation & Occupation Living situation: Reports: , with Family Occupation: Retired ED ROS GENERAL - Review of Systems Review Of Systems: Comprehensive ROS is negative, except as noted in HPI. ED EXAM, GENERAL - Physical Exam Exam: See Below Free Text/Narrative:: My physical exam is on the HPI EKG INTERPRETATION EKG Date: 05/27/20 Rhythm: NSR Rate (Beats/Min): 73 P-Wave: Present QRS: Normal Comparison: No Change EKG Interpretation Comments: Fact interferes with the interpretation of 3 of the leads blood it does not appear that there is any acute injury. Course - Vital Signs Text/Narrative:: The patient argues that he thinks ambulance people made him worse. He was having trouble breathing according to the corsetier and the thai masseur and his oxygen saturation was 84% on 2 L of oxygen. When they gave him a nebulized albuterol treatment in route his oxygen saturation came back up to the mid 90s on to 2 L of oxygen and he stopped having any increased respiratory effort. He has however replaced this with fairly continuously complaining about being here and not wanting to have prolonged evaluations or treatments. He did agree to let me evaluate him for the concerns of his respiratory difficulty and his redness around his tube. Aced upon the patient's behavior in the department appears he stable enough to wait until tomorrow which will be Thursday when he can have his oncology team evaluate him. In the meantime he needs to use his nebulizer as needed. And I will start an antibiotic for possible cellulitis around the insertion site of his pleriVAC Last Recorded V/S: Last Vital Signs Temp 97.4 F 05/27/20 03:35 Pulse 77 05/27/20 03:35 Resp 28 H 05/27/20 03:35 BP 102/50 L 05/27/20 03:35 Pulse Ox 89 L 05/27/20 03:35 - Orders/Labs/Meds Orders: Active Orders 24 hr Category Date Time Status EKG Documentation Completion [RC] AM Care 05/27/20 03:38 Active Sodium Chloride 0.9% [Saline Flush] Med 05/27/20 03:38 Active 10 ml FLUSH ASDIRECTED PRN Sodium Chloride 0.9% [Saline Flush] Med 05/27/20 03:38 Active 2.5 ml FLUSH ASDIRECTED PRN Saline Lock Insert [OM.PC] Stat Oth 05/27/20 03:38 Ordered Medication Orders Sodium Chloride (Saline Flush) 10 ml FLUSH ASDIRECTED PRN PRN Reason: Keep Vein Open Sodium Chloride (Saline Flush) 2.5 ml FLUSH ASDIRECTED PRN PRN Reason: Keep Vein Open Labs: Laboratory Tests 05/27/20 05/27/20 05/27/20 Range/Units 03:46 03:46 03:46 WBC 10.58 (4.0-11.0) K/uL RBC 3.80 L (4.50-5.90) M/uL Hgb 10.9 L (13.0-17.0) g/dL Hct 34.3 L (38.0-50.0) % MCV 90.3 (80.0-98.0) fL MCH 28.7 (27.0-32.0) pg MCHC 31.8 (31.0-37.0) g/dL RDW Std Deviation 56.5 (28.0-62.0) fl RDW Coeff of Ovi 17 H (11.0-15.0) % Plt Count 297 (150-400) K/uL MPV 9.60 (7.40-12.00) fL Neut % (Auto) 69.9 (48.0-80.0) % Lymph % (Auto) 16.2 (16.0-40.0) % [place] % (Auto) 12.7 (0.0-15.0) % Eos % (Auto) 0.9 (0.0-7.0) % Baso % (Auto) 0.3 (0.0-1.5) % Neut # (Auto) 7.4 H (1.4-5.7) K/uL Lymph # (Auto) 1.7 (0.6-2.4) K/uL [place] # (Auto) 1.3 H (0.0-0.8) K/uL Eos # (Auto) 0.1 (0.0-0.7) K/uL Baso # (Auto) 0.0 (0.0-0.1) K/uL Nucleated RBC % 0.0 /100WBC Nucleated RBCs # 0 K/uL Sodium 131 L (136-148) mmol/L Potassium 3.1 L (3.5-5.1) mmol/L Chloride 92 L (98-107) mmol/L Carbon Dioxide 31.1 (21.0-32.0) mmol/L BUN 23 H (7.0-18.0) mg/dL Creatinine 1.3 (0.8-1.3) mg/dL Est Cr Clr Drug Dosing 44.99 mL/min Estimated GFR (MDRD) 54.0 ml/min Glucose 102 (74-106) mg/dL Calcium 7.5 L (8.5-10.1) mg/dL Total Bilirubin 0.5 (0.2-1.0) mg/dL AST 37 (15-37) IU/L ALT 32 (14-63) IU/L Alkaline Phosphatase 92 (46-116) U/L Troponin I < 0.050 (0.000-0.056) ng/mL B-Natriuretic Peptide 48 (<100) PG/ML Total Protein 6.2 L (6.4-8.2) g/dL Albumin 2.6 L (3.4-5.0) g/dL Globulin 3.6 (2.6-4.0) g/dL Albumin/Globulin Ratio 0.7 L (0.9-1.6) Meds: Medications Generic Name Dose Route Start Last Admin Trade Name Freq PRN Reason Stop Dose Admin Sodium Chloride 10 ml 05/27/20 03:38 Saline Flush FLUSH ASDIRECTED PRN Keep Vein Open Sodium Chloride 2.5 ml 05/27/20 03:38 Saline Flush FLUSH ASDIRECTED PRN Keep Vein Open Departure - Departure Time of Disposition: 04:35 Disposition: Home, Self-Care 01 Condition: Good Clinical Impression: Cellulitis, Pleural effusion - Discharge Information Instructions: Cellulitis, Adult, Pleural Effusion Forms: ED Department Discharge Additional Instructions: The following information is given to patients seen in the emergency department who are being discharged to home. This information is to outline your options for follow-up care. We provide all patients seen in our emergency department with a follow-up referral. The need for follow-up, as well as the timing and circumstances, are variable depending upon the specifics of your emergency department visit. If you don't have a primary care physician on staff, we will provide you with a referral. We always advise you to contact your personal physician following an emergency department visit to inform them of the circumstance of the visit and for follow-up with them and/or the need for any referrals to a consulting specialist. The emergency department will also refer you to a specialist when appropriate. This referral assures that you have the opportunity for follow-up care with a specialist. All of these measure are taken in an effort to provide you with optimal care, which includes your follow-up. Under all circumstances we always encourage you to contact your private physician who remains a resource for coordinating your care. When calling for follow-up care, please make the office aware that this follow-up is from your recent emergency room visit. If for any reason you are refused follow-up, please contact the [facility] Emergency Department at and asked to speak to the emergency department charge nurse. You need to call Dr. Rodriges today and tell them that you need to have your pleural effusion drained through your Pleur-evac and you need to have instructions you can bring should come to the hospital and have an increased pleural effusion and Dr. Rodriges want our staff to be able to use the pleural VAC that has been inserted because I do not have access to his notes. You are welcome to return if you feel worse. Make sure Dr. Rodriges follows up on the cellulitis in the area on your back. Sepsis Event Note (ED) - Evaluation Sepsis Screening Result: No Definite Risk - Focused Exam Vital Signs: Vital Signs Temp Pulse Resp BP Pulse Ox 05/27/20 03:35 97.4 F 77 28 H 102/50 L 89 L - My Orders Last 24 Hours: My Active Orders 05/27/20 03:38 EKG Documentation Completion [RC] AM Sodium Chloride 0.9% [Saline Flush] 10 ml FLUSH ASDIRECTED PRN Sodium Chloride 0.9% [Saline Flush] 2.5 ml FLUSH ASDIRECTED PRN Saline Lock Insert [OM.PC] Stat - Assessment/Plan Last 24 Hours: My Active Orders 05/27/20 03:38 EKG Documentation Completion [RC] AM Sodium Chloride 0.9% [Saline Flush] 10 ml FLUSH ASDIRECTED PRN Sodium Chloride 0.9% [Saline Flush] 2.5 ml FLUSH ASDIRECTED PRN Saline Lock Insert [OM.PC] Stat
--- NOTE | 2020-05-27 04:07 | CR ---
INDICATION: Dyspnea TECHNIQUE: Chest 1 view. COMPARISON: 03/28/2020 FINDINGS: Cardiovascular and mediastinum: Heart size and vasculature are normal in caliber and appearance. Mediastinum is within normal limits. Lungs and pleural space: Lungs are clear. No sign of infiltrate or mass. Right pleural effusion. No pneumothorax. Bones and soft tissues: No significant findings. IMPRESSION: Right pleural effusion. Dictated by Leeroy Gonzalez MD @ 05/27/2020 4:06:36 AM Dictated by: Leeroy Gonzalez MD @ 05/27/2020 04:06:42 (Electronically Signed)
[2020-05-27 04:19] LABS: BLOOD UREA NITROGEN,BUN 23 mg/dL (7.0-18.0); CARBON DIOXIDE,CO2 31.1 mmol/L (21.0-32.0); CHLORIDE,CL 92 mmol/L (98-107); GLUCOSE RANDOM 102 mg/dL (74-106); POTASSIUM,K 3.1 mmol/L (3.5-5.1); SODIUM,NA 131 mmol/L (136-148)
[2020-05-27] MEDS ORDERED: Doxycycline 100 MG Cap PO ONE (04:33)
[2020-05-27 06:18] VITALS: BP 101/52; PULSE 82
== END 2020-05-27 05:00 | disposition home or self-care (01) ==
LOC: MW.ED 03:28
DX: J90 Pleural effusion, not elsewhere classified (principal); L03.313 Cellulitis of chest wall; I11.0 Hypertensive heart disease with heart failure; I50.9 Heart failure, unspecified; J44.9 Chronic obstructive pulmonary disease, unspecified; Z99.81 Dependence on supplemental oxygen; E66.9 Obesity, unspecified; Z68.37 Body mass index [BMI] 37.0-37.9, adult; Z88.6 Allergy status to analgesic agent; Z79.899 Other long term (current) drug therapy
CPT/HCPCS: 36415; 71045; 80053; 83880; 84484; 85025; 93005; 99284; A9270; 93010; 99283

== ENCOUNTER 2020-06-10 07:02 | Emergency (ER) | payer MEDICARE, BC, OTHER ==
[2020-06-10] MEDS ORDERED: methylPREDNISolone Sodium Succinate 125 MG/2 ML SDV IVPUSH ONE (07:12)
--- NOTE | 2020-06-10 07:18 | EDM.PDOC ---
ED HPI GENERAL MEDICAL PROBLEM - General Chief Complaint: Respiratory Problem Stated Complaint: SHORT OF BREATH Time Seen by Provider: 06/10/20 07:03 Source of Information: Reports: Patient History Limitations: Reports: No Limitations - History of Present Illness INITIAL COMMENTS - FREE TEXT/NARRATIVE: 74M PMHx stage IV lung CA, h/o pleural effusions, COPD, chronic resp failure w/ 2-L O2 dependence presents for worsening SOB. History limited 2/2 SOB. Patient notes productive cough, denies fevers. Denies chest pain. No LE swelling. Has bandages from old R thoracentesis catheter which has been removed. - Related Data Allergies Allergy/AdvReac Type Severity Reaction Status Date / Time celecoxib [From Celebrex] Allergy Rash Verified 06/10/20 07:03 Home Meds: Home Meds Albuterol [Ventolin HFA] 1 puff INH Q4HR PRN 03/28/20 [History] Cholestyramine (With Sugar) [Questran Powder] 2 - 4 gm PO BID PRN 03/28/20 [History] Escitalopram [Lexapro] 10 mg PO DAILY 03/28/20 [History] Ipratropium/Albuterol Sulfate [Iprat-Albut 0.5-3(2.5) MG/3 ML] 3 ml NEB Q6H 03/28/20 [History] LORazepam [Lorazepam] 0.5 mg PO TID PRN 03/28/20 [History] Levothyroxine [Synthroid] 100 mcg PO ACBREAKFAST 03/28/20 [History] Potassium Chloride 10 meq PO BIDMEALS 03/28/20 [History] traZODone HCl [Trazodone HCl] 100 mg PO BEDTIME 03/28/20 [History] Doxycycline [Vibramycin] 100 mg PO BID #10 cap 03/29/20 [Rx] Enalapril/Hydrochlorothiazide [Enalapril-HCTZ 10-25 MG] 10 - 25 mg PO DAILY #0 03/29/20 [Rx] Furosemide 40 mg PO DAILY #0 03/29/20 [Rx] Gauze Bandage 1 each TP Q72H #1 box 03/29/20 [Rx] Polyhexam Biguan/Non-Adh Band [Telfa 3"X4" Non-Adherent Pad] 1 each TP Q72H #1 box 03/29/20 [Rx] Sodium Chloride [Saline Wound Wash] 210 ml TP Q72H #1 bottle 03/29/20 [Rx] Transparent Dressing [Tegaderm] 1 each TP Q72H #1 box 03/29/20 [Rx] Doxycycline Hyclate 100 mg PO BID #20 capsule 05/27/20 [Rx] predniSONE 40 mg PO DAILY 5 Days #10 tab 06/10/20 [Rx] Past Medical History HEENT History: Reports: Other (See Below) Other HEENT History: wears glasses, has dentures but does not wear them Cardiovascular History: Reports: Heart Failure, High Cholesterol, Hypertension Respiratory History: Reports: COPD, Other (See Below) Other Respiratory History: 60 yr hx of smoking, quit smoking july 2019. Oxygen dependent 2.5 L NC Gastrointestinal History: Reports: Chronic Diarrhea Other Gastrointestinal History: Current C-diff Genitourinary History: Reports: Urinary Incontinence Musculoskeletal History: Reports: Arthritis, Fracture Other Musculoskeletal History: hx fx rt ankle Neurological History: Reports: Other (See Below) (history polio with residual R leg weakness, non ambulatory) Psychiatric History: Reports: None Endocrine/Metabolic History: Reports: Obesity/BMI 30+ Hematologic History: Reports: None Oncologic (Cancer) History: Reports: Lung (metastatic small cell lung cancer of the right lung (on oral chemotherapy) stage IV) - Infectious Disease History Infectious Disease History: Reports: MRSA, Other (See Below) Other Infectious Disease History: polio - Past Surgical History Respiratory Surgical History: Reports: Other (See Below) Social & Family History - Family History Family Medical History: Noncontributory - Caffeine Use Caffeine Use: Reports: Coffee - Living Situation & Occupation Living situation: Reports: , with Family Occupation: Retired ED ROS GENERAL - Review of Systems Review Of Systems: Comprehensive ROS is negative, except as noted in HPI. ED EXAM, GENERAL - Physical Exam Exam: See Below Exam Limited By: No Limitations General Appearance: Alert, WD/WN, No Apparent Distress Throat/Mouth: Normal Inspection Head: Atraumatic, Normocephalic Respiratory/Chest: Other (mild respiratory distress, diminshed lung sounds L>R, b/l expiratory wheezing, tachypneic ) Cardiovascular: Regular Rate, Rhythm, Other (mild b/l pitting edema) GI/Abdominal: Soft, Non-Tender Extremities: Normal Inspection Neurological: Alert Psychiatric: Normal Affect, Normal Mood Skin Exam: Warm, Dry Course - Vital Signs Last Recorded V/S: Last Vital Signs Temp 96.8 F L 06/10/20 07:02 Pulse 72 06/10/20 08:18 Resp 22 H 06/10/20 08:18 BP 119/71 06/10/20 08:18 Pulse Ox 98 06/10/20 08:18 - Orders/Labs/Meds Orders: Active Orders 24 hr Category Date Time Status PROCALCITONIN [REF] Stat Lab 06/10/20 07:07 Received UA W/BONNIE RFLX IF INDICATED [URIN] Stat Lab 06/10/20 07:13 Ordered Labs: Laboratory Tests 06/10/20 06/10/20 06/10/20 Range/Units 07:07 07:07 07:07 WBC 8.36 (4.0-11.0) K/uL RBC 3.85 L (4.50-5.90) M/uL Hgb 11.5 L (13.0-17.0) g/dL Hct 36.0 L (38.0-50.0) % MCV 93.5 (80.0-98.0) fL MCH 29.9 (27.0-32.0) pg MCHC 31.9 (31.0-37.0) g/dL RDW Std Deviation 63.3 H (28.0-62.0) fl RDW Coeff of Ovi 18 H (11.0-15.0) % Plt Count 383 (150-400) K/uL MPV 9.80 (7.40-12.00) fL Neut % (Auto) 63.1 (48.0-80.0) % Lymph % (Auto) 23.7 (16.0-40.0) % Surry % (Auto) 11.6 (0.0-15.0) % Eos % (Auto) 1.4 (0.0-7.0) % Baso % (Auto) 0.2 (0.0-1.5) % Neut # (Auto) 5.3 (1.4-5.7) K/uL Lymph # (Auto) 2.0 (0.6-2.4) K/uL Surry # (Auto) 1.0 H (0.0-0.8) K/uL Eos # (Auto) 0.1 (0.0-0.7) K/uL Baso # (Auto) 0.0 (0.0-0.1) K/uL Nucleated RBC % 0.0 /100WBC Nucleated RBCs # 0 K/uL VBG pH 7.40 (7.31-7.41) VBG pCO2 52 H (35-45) mmHG VBG pO2 41 H (30-40) mmHG VBG HCO3 32 H (22-30) mEq/L VBG Total CO2 29 L (41-51) mmol/L VBG Base Excess 5.6 H (-3.0-3.0) Lactate 1.6 (0.20-2.00) mmol/L Sodium (136-148) mmol/L Potassium (3.5-5.1) mmol/L Chloride (98-107) mmol/L Carbon Dioxide (21.0-32.0) mmol/L BUN (7.0-18.0) mg/dL Creatinine (0.8-1.3) mg/dL Est Cr Clr Drug Dosing mL/min Estimated GFR (MDRD) ml/min Glucose (74-106) mg/dL Calcium (8.5-10.1) mg/dL Magnesium (1.8-2.4) mg/dL Total Bilirubin (0.2-1.0) mg/dL AST (15-37) IU/L ALT (14-63) IU/L Alkaline Phosphatase (46-116) U/L Troponin I (0.000-0.056) ng/mL B-Natriuretic Peptide (<100) PG/ML Total Protein (6.4-8.2) g/dL Albumin (3.4-5.0) g/dL Globulin (2.6-4.0) g/dL Albumin/Globulin Ratio (0.9-1.6) COVID-19 (AYUSH) (NEGATIVE) 06/10/20 06/10/20 06/10/20 Range/Units 07:07 07:07 07:45 WBC (4.0-11.0) K/uL RBC (4.50-5.90) M/uL Hgb (13.0-17.0) g/dL Hct (38.0-50.0) % MCV (80.0-98.0) fL MCH (27.0-32.0) pg MCHC (31.0-37.0) g/dL RDW Std Deviation (28.0-62.0) fl RDW Coeff of Ovi (11.0-15.0) % Plt Count (150-400) K/uL MPV (7.40-12.00) fL Neut % (Auto) (48.0-80.0) % Lymph % (Auto) (16.0-40.0) % Surry % (Auto) (0.0-15.0) % Eos % (Auto) (0.0-7.0) % Baso % (Auto) (0.0-1.5) % Neut # (Auto) (1.4-5.7) K/uL Lymph # (Auto) (0.6-2.4) K/uL Surry # (Auto) (0.0-0.8) K/uL Eos # (Auto) (0.0-0.7) K/uL Baso # (Auto) (0.0-0.1) K/uL Nucleated RBC % /100WBC Nucleated RBCs # K/uL VBG pH (7.31-7.41) VBG pCO2 (35-45) mmHG VBG pO2 (30-40) mmHG VBG HCO3 (22-30) mEq/L VBG Total CO2 (41-51) mmol/L VBG Base Excess (-3.0-3.0) Lactate (0.20-2.00) mmol/L Sodium 131 L (136-148) mmol/L Potassium 3.5 (3.5-5.1) mmol/L Chloride 96 L (98-107) mmol/L Carbon Dioxide 30.2 (21.0-32.0) mmol/L BUN 19 H (7.0-18.0) mg/dL Creatinine 1.2 (0.8-1.3) mg/dL Est Cr Clr Drug Dosing 46.98 mL/min Estimated GFR (MDRD) 59.2 ml/min Glucose 100 (74-106) mg/dL Calcium 7.4 L (8.5-10.1) mg/dL Magnesium 1.3 L (1.8-2.4) mg/dL Total Bilirubin 0.3 (0.2-1.0) mg/dL AST 38 H (15-37) IU/L ALT 43 (14-63) IU/L Alkaline Phosphatase 106 (46-116) U/L Troponin I < 0.050 (0.000-0.056) ng/mL B-Natriuretic Peptide 19 (<100) PG/ML Total Protein 6.2 L (6.4-8.2) g/dL Albumin 2.8 L (3.4-5.0) g/dL Globulin 3.4 (2.6-4.0) g/dL Albumin/Globulin Ratio 0.8 L (0.9-1.6) COVID-19 (AYUSH) NEGATIVE (NEGATIVE) Meds: Medications Discontinued Medications Generic Name Dose Route Start Last Admin Trade Name Freq PRN Reason Stop Dose Admin Albuterol/Ipratropium 3 ml 06/10/20 07:15 06/10/20 08:20 Duoneb 3.0-0.5 Mg/3 Ml NEB 06/10/20 07:16 3 ml ONETIME ONE Administration Methylprednisolone Sodium Succinate 125 mg 06/10/20 07:12 06/10/20 07:39 Solu-Medrol IVPUSH 06/10/20 07:13 125 mg ONETIME ONE Administration - Re-Assessments/Exams Free Text/Narrative Re-Assessment/Exam: 06/10/20 07:19 Patient with stage IV lung CA presents for SOB. Diminished L sided lung sounds. Will get labs, CXR, EKG, COVID testing. Will trial duoneb and solumedrol. Will f/u results and dispo; anticipate admit vs transfer. Free Text/Narrative Re-Assessment/Exam: 06/10/20 08:42 Patient is feeling better, less tachypneic. He was offered admission to the hospital for presumptive COPD exacerbation complicated by lung CA and chronic respiratory failure, but he strongly declines admission and just wants to go home. He was explained the risks of going home but states he would not like further workup. As he has no acute life threatening pathology, I do believe this to be a reasonable course of action. Unfortunately his condition seems to be worsening, but this is expected considering his terminal illness. I recommend discussing end of life planning with PMD. Patient agrees to f/u with PMD. Will send short course prednisone to patient's pharmacy. Departure - Departure Time of Disposition: 08:44 Disposition: Home, Self-Care 01 Condition: Fair Clinical Impression: COPD exacerbation - Discharge Information Prescriptions: predniSONE 40 mg PO DAILY 5 Days #10 tab Instructions: Shortness of Breath, Adult, [id number] Referrals: PCP,None [Primary Care Provider] - PMD, PMD [Other] Forms: ED Department Discharge Additional Instructions: The following information is given to patients seen in the emergency department who are being discharged to home. This information is to outline your options for follow-up care. We provide all patients seen in our emergency department with a follow-up referral. The need for follow-up, as well as the timing and circumstances, are variable depending upon the specifics of your emergency department visit. If you don't have a primary care physician on staff, we will provide you with a referral. We always advise you to contact your personal physician following an emergency department visit to inform them of the circumstance of the visit and for follow-up with them and/or the need for any referrals to a consulting specialist. The emergency department will also refer you to a specialist when appropriate. This referral assures that you have the opportunity for follow-up care with a specialist. All of these measure are taken in an effort to provide you with optimal care, which includes your follow-up. Under all circumstances we always encourage you to contact your private physician who remains a resource for coordinating your care. When calling for follow-up care, please make the office aware that this follow-up is from your recent emergency room visit. If for any reason you are refused follow-up, please contact the [facility] Emergency Department at and asked to speak to the emergency department charge nurse. Sepsis Event Note (ED) - Evaluation Sepsis Screening Result: No Definite Risk - Focused Exam Vital Signs: Vital Signs Temp Pulse Resp BP Pulse Ox 06/10/20 08:18 72 22 H 119/71 98 06/10/20 07:31 79 24 H 115/71 98 06/10/20 07:02 96.8 F L 76 28 H 111/75 90 L - My Orders Last 24 Hours: My Active Orders 06/10/20 07:07 PROCALCITONIN [REF] Stat 06/10/20 07:13 UA W/BONNIE RFLX IF INDICATED [URIN] Stat - Assessment/Plan Last 24 Hours: My Active Orders 06/10/20 07:07 PROCALCITONIN [REF] Stat 06/10/20 07:13 UA W/BONNIE RFLX IF INDICATED [URIN] Stat
[2020-06-10] MEDS: Albuterol/Ipratropium 3.0-0.5 MG/3 ML Neb Soln NEB ONE ×2 (07:37→08:20)
[2020-06-10 07:43] LABS: BLOOD UREA NITROGEN,BUN 19 mg/dL (7.0-18.0); CARBON DIOXIDE,CO2 30.2 mmol/L (21.0-32.0); CHLORIDE,CL 96 mmol/L (98-107); GLUCOSE RANDOM 100 mg/dL (74-106); POTASSIUM,K 3.5 mmol/L (3.5-5.1); SODIUM,NA 131 mmol/L (136-148)
--- NOTE | 2020-06-10 07:50 | CR ---
INDICATION: Diminished breath sounds COMPARISON: Portable chest dated 05/27/2020 TECHNIQUE: Portable AP erect chest performed at 7:29 a.m. FINDINGS: The right-sided chest tube remains in stable position. There is persistent circumferential pleural opacity within the right thorax with volume loss of the right lung. Findings may indicate malignant pleural changes. The right diaphragm appears elevated. Left lung appears clear. Heart pulmonary vessels are normal size. IMPRESSION: Diffuse pleural opacities within the right thorax with accompanying volume loss. Findings likely reflect malignant pleural disease. Dictated by Godfrey Phillips MD @ Jun 10 2020 7:47AM Signed by Dr. Godfrey Phillips @ Jun 10 2020 7:50AM
[2020-06-10 08:19] VITALS: BP 119/71; PULSE 72
== END 2020-06-10 09:16 | disposition home or self-care (01) ==
LOC: MW.ED 07:02
DX: J44.1 Chronic obstructive pulmonary disease with (acute) exacerbation (principal); Z20.828 Contact with and (suspected) exposure to other viral communicable diseases; Z88.8 Allergy status to other drugs, medicaments and biological substances; Z79.899 Other long term (current) drug therapy; E78.00 Pure hypercholesterolemia, unspecified; I11.0 Hypertensive heart disease with heart failure; I50.9 Heart failure, unspecified; E66.9 Obesity, unspecified; Z68.38 Body mass index [BMI] 38.0-38.9, adult
CPT/HCPCS: 36415; 71045; 80053; 82803; 83605; 83735; 83880; 84145; 84484; 85025; 93005; 94640; 96374; 99285; J2930; U0002; 93010; 99283; J7620-GY

== ENCOUNTER 2020-07-06 14:09 | Inpatient (IN) | payer OTHER, MEDICARE, BC ==
[2020-07-06] MEDS ORDERED: Hyoscyamine 0.125 MG Tab.SL SL PRN (14:20)
[2020-07-06] MEDS ORDERED: traMADol 50 MG Tab PO PRN (14:20)
[2020-07-06] MEDS ORDERED: Morphine 10 MG/0.5 ML Oral Syringe SL PRN (14:20)
[2020-07-06] MEDS ORDERED: Haloperidol 1 MG Tab PO PRN (14:20)
[2020-07-06] MEDS ORDERED: LORazepam 0.5 MG Tab PO PRN (14:25)
[2020-07-06] MEDS ORDERED: hydrOXYzine HCl 25 MG Tab PO PRN (14:25)
--- NOTE | 2020-07-06 15:01 | PCM.HP.2 ---
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 He arrived via EMS, reports he is doing well, feels warm but currently denies any pain or dyspnea. Has no concerns, but he is very adamant that he is going home Thursday. R pleura vac to R flank noted, no pain or drainage. Dressing intact. - Related Data Allergies/Adverse Reactions: Allergies Allergy/AdvReac Type Severity Reaction Status Date / Time celecoxib [From Celebrex] Allergy Rash Verified 06/10/20 07:03 Home Medications: Home Meds Albuterol [Ventolin HFA] 1 puff INH Q4HR PRN 03/28/20 [History] Cholestyramine (With Sugar) [Questran Powder] 2 - 4 gm PO BID PRN 03/28/20 [History] Escitalopram [Lexapro] 10 mg PO DAILY 03/28/20 [History] Ipratropium/Albuterol Sulfate [Iprat-Albut 0.5-3(2.5) MG/3 ML] 3 ml NEB Q6H 03/28/20 [History] LORazepam [Lorazepam] 0.5 mg PO TID PRN 03/28/20 [History] Levothyroxine [Synthroid] 100 mcg PO ACBREAKFAST 03/28/20 [History] Potassium Chloride 10 meq PO BIDMEALS 03/28/20 [History] traZODone HCl [Trazodone HCl] 100 mg PO BEDTIME 03/28/20 [History] Doxycycline [Vibramycin] 100 mg PO BID #10 cap 03/29/20 [Rx] Enalapril/Hydrochlorothiazide [Enalapril-HCTZ 10-25 MG] 10 - 25 mg PO DAILY #0 03/29/20 [Rx] Furosemide 40 mg PO DAILY #0 03/29/20 [Rx] Gauze Bandage 1 each TP Q72H #1 box 03/29/20 [Rx] Polyhexam Biguan/Non-Adh Band [Telfa 3"X4" Non-Adherent Pad] 1 each TP Q72H #1 box 03/29/20 [Rx] Sodium Chloride [Saline Wound Wash] 210 ml TP Q72H #1 bottle 03/29/20 [Rx] Transparent Dressing [Tegaderm] 1 each TP Q72H #1 box 03/29/20 [Rx] Doxycycline Hyclate 100 mg PO BID #20 capsule 05/27/20 [Rx] predniSONE 40 mg PO DAILY 5 Days #10 tab 06/10/20 [Rx] Past Medical History HEENT History: Reports: Other (See Below) Other HEENT History: wears glasses, has dentures but does not wear them Cardiovascular History: Reports: Heart Failure, High Cholesterol, Hypertension Respiratory History: Reports: COPD, Other (See Below) Other Respiratory History: 60 yr hx of smoking, quit smoking july 2019. 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: None Hematologic History: Reports: None Oncologic (Cancer) History: Reports: Lung (metastatic small cell lung cancer of the right lung (on oral chemotherapy) stage IV) Dermatologic History: Reports: None - Infectious Disease History Infectious Disease History: Reports: MRSA, Other (See Below) Other Infectious Disease History: polio - Past Surgical History Respiratory Surgical History: Reports: Other (See Below) Social & Family History - Family History Family Medical History: Noncontributory - Caffeine Use Caffeine Use: Reports: Coffee - Living Situation & Occupation Living situation: Reports: , with Family Occupation: Retired H&P Review of Systems - Review of Systems: Review Of Systems: Comprehensive ROS is negative, except as noted in HPI. Exam - Exam Exam: See Below - Exam General: Alert, Oriented, Cooperative HEENT: Conjunctiva Clear, Posterior Pharynx Clear, Pupils Reactive Lungs: Decreased Breath Sounds, Wheezing, Other (barrel chested, pleura vac to R flank, upper back) Cardiovascular: Regular Rate, Regular Rhythm, Normal S1, Normal S2 GI/Abdominal Exam: Normal Bowel Sounds, Soft, Non-Tender Back Exam: Normal Inspection, Full Range of Motion Extremities: Normal Inspection, Normal Range of Motion, Pedal Edema Skin: Other (cellulitis to R lower leg, erythema warm and tenderness noted. ) Neuro Extensive - Mental Status: Alert, Oriented x3 Neuro Extensive - Motor, Sensory, Reflexes: CN II-XII Intact, Normal Gait Psychiatric: Alert, Normal Affect, Normal Mood - Problem List (1) Hospice care Status: Acute Current Visit: Yes (2) Lung cancer SNOMED Code(s): 058556656 ICD Code: C34.90 - MALIGNANT NEOPLASM OF UNSP PART OF UNSP BRONCHUS OR LUNG Status: Chronic Current Visit: No Qualifiers: Laterality: right Lung location: middle lobe of lung Qualified Code(s): C34.2 - Malignant neoplasm of middle lobe, bronchus or lung (3) Anxiety SNOMED Code(s): 62470728 ICD Code: F41.9 - ANXIETY DISORDER, UNSPECIFIED Status: Chronic Current Visit: No (4) Chronic respiratory failure SNOMED Code(s): 69617209 ICD Code: J96.10 - CHRONIC RESPIRATORY FAILURE, UNSP W HYPOXIA OR HYPERCAPNIA Status: Chronic Current Visit: No Qualifiers: Respiratory failure complication: hypoxia Qualified Code(s): J96.11 - Chronic respiratory failure with hypoxia (5) Diastolic dysfunction SNOMED Code(s): 2603432 ICD Code: I51.89 - OTHER ILL-DEFINED HEART DISEASES Status: Chronic Current Visit: No (6) HTN (hypertension) SNOMED Code(s): 95716266 ICD Code: I10 - ESSENTIAL (PRIMARY) HYPERTENSION Status: Chronic Current Visit: No (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 SNOMED Code(s): 460297404 ICD Code: Z86.12 - PERSONAL HISTORY OF POLIOMYELITIS; Z87.39 - PERSONAL HISTORY OF DISEASES OF THE MS SYS AND CONN TISS Status: Chronic Current Visit: No (8) Obesity (BMI 35.0-39.9 without comorbidity) SNOMED Code(s): 136307560, 721976723 ICD Code: E66.9 - OBESITY, UNSPECIFIED Status: Chronic Current Visit: No (9) Oxygen dependent SNOMED Code(s): 299148924654 ICD Code: Z99.81 - DEPENDENCE ON SUPPLEMENTAL OXYGEN Status: Chronic Current Visit: No Problem List Initiated/Reviewed/Updated: Yes Orders Last 24hrs: Active Orders 24 hr Category Date Time Status Patient Status [ADT] Stat ADT 07/06/20 14:15 Ordered Activity as Tolerated [RC] .Routine Care 07/06/20 14:16 Ordered Communication Order [RC] ROUTINE Care 07/06/20 14:16 Ordered Communication Order [RC] ROUTINE Care 07/06/20 14:32 Ordered Communication Order [RC] ROUTINE Care 07/06/20 14:32 Ordered Dressing Change [Wound Care] [RC] Q3D Care 07/06/20 14:29 Ordered Elevate Extremity [RC] ASDIRECTED Care 07/06/20 14:31 Ordered Oxygen Therapy [RC] PRN Care 07/06/20 14:29 Ordered RT Aerosol Therapy [RC] ASDIRECTED Care 07/06/20 14:25 Ordered Regular Diet [DIET] Diet 07/06/20 Breakfast Ordered Acidophilus/Pectin, Pitkin Med 07/07/20 09:00 Ordered 1 tab PO DAILY Albuterol/Ipratropium [DuoNeb 3.0-0.5 MG/3 ML] Med 07/06/20 18:00 Ordered 3 ml NEB Q6HRRT Docusate Sodium/Sennosides [Senna Plus] Med 07/06/20 14:25 Ordered 1 - 2 tab PO BID PRN Escitalopram [Lexapro] Med 07/07/20 09:00 Ordered 10 mg PO DAILY Hyoscyamine [Hyomax-SL] Med 07/06/20 14:20 Ordered 0.125 mg SL Q4H PRN LORazepam [Ativan] Med 07/06/20 21:00 Ordered 0.5 mg PO BID LORazepam [Ativan] Med 07/06/20 14:25 Ordered 0.5 mg PO Q4H PRN Levothyroxine Med 07/07/20 07:30 Ordered 50 mcg PO ACBREAKFAST Mirtazapine [Remeron] Med 07/06/20 21:00 Ordered 15 mg PO BEDTIME Morphine [Morphine 20 MG/ML Soln] Med 07/06/20 14:20 Ordered 5 mg SL Q30M PRN cephALEXin [Keflex] Med 07/06/20 18:00 Ordered 500 mg PO Q6HR haloperidoL [Haldol] Med 07/06/20 14:20 Ordered 0.5 mg PO Q6H PRN hydrOXYzine HCL [Atarax] Med 07/06/20 14:25 Ordered 25 mg PO Q6H PRN traMADol [Ultram] Med 07/06/20 14:20 Ordered 50 - 100 mg PO Q4H PRN Medication Orders Acidophilus/Pectin (Acidophilus/Pectin, Pitkin) 1 tab PO DAILY SYMONE Albuterol/Ipratropium (Duoneb 3.0-0.5 Mg/3 Ml) 3 ml NEB Q6HRRT SYMONE Cephalexin (Keflex) 500 mg PO Q6HR SYMONE Escitalopram Oxalate (Lexapro) 10 mg PO DAILY SYMONE Haloperidol (Haldol) 0.5 mg PO Q6H PRN PRN Reason: agitation/nausea Hydroxyzine HCl (Atarax) 25 mg PO Q6H PRN PRN Reason: Itching Hyoscyamine (Hyomax-Sl) 0.125 mg SL Q4H PRN PRN Reason: secretions Levothyroxine Sodium (Levothyroxine) 50 mcg PO ACBREAKFAST SYMONE Lorazepam (Ativan) 0.5 mg PO BID SYMONE Lorazepam (Ativan) 0.5 mg PO Q4H PRN PRN Reason: Anxiety Mirtazapine (Remeron) 15 mg PO BEDTIME SYMONE Morphine Sulfate (Morphine 20 Mg/Ml Soln) 5 mg SL Q30M PRN PRN Reason: SOB/pain Senna/Docusate Sodium (Senna Plus) 1 - 2 tab PO BID PRN PRN Reason: Constipation Tramadol HCl (Ultram) 50 - 100 mg PO Q4H PRN PRN Reason: Pain Assessment/Plan Comment:: This 74 year old male admitted for Hospice respite care. Continue all hospice orders. COVID test for admission purposes only. Likely to be discharged on Thursday but by at least 07/11. Notify Hospice nurse for concerns. - Mortality Measure Prognosis:: Poor
[2020-07-06] MEDS: Albuterol/Ipratropium 3.0-0.5 MG/3 ML Neb Soln NEB SCH ×2 (17:14→23:37)
[2020-07-06] MEDS: Cephalexin 500 MG Cap PO SCH ×2 (17:25→23:37)
[2020-07-06] MEDS: LORazepam 0.5 MG Tab PO SCH (20:12)
[2020-07-06] MEDS ORDERED: Mirtazapine 15 MG Tab.DIS PO SCH (21:00)
[2020-07-06 23:45] VITALS: BP 161/71; PULSE 70
[2020-07-07] MEDS: Albuterol/Ipratropium 3.0-0.5 MG/3 ML Neb Soln NEB SCH ×2 (06:07→12:04)
[2020-07-07] MEDS: Cephalexin 500 MG Cap PO SCH ×3 (06:43→18:48)
[2020-07-07] MEDS ORDERED: Levothyroxine 50 MCG Tab PO SCH (07:30)
[2020-07-07] MEDS ORDERED: Escitalopram 10 MG Tab PO SCH (09:00)
[2020-07-07] MEDS ORDERED: Acidophilus with Citrus Pectin Tab PO SCH (09:00)
[2020-07-07] MEDS: LORazepam 0.5 MG Tab PO SCH (09:55)
== END 2020-07-07 19:00 | disposition hospice, home (50) | DRG 951 ==
LOC: MW.MS 14:09
PROVIDERS: ADMIT Internal Medicine; ATTEND Internal Medicine
DX: Z51.5 Encounter for palliative care (principal); C34.2 Malignant neoplasm of middle lobe, bronchus or lung; J96.11 Chronic respiratory failure with hypoxia; C78.89 Secondary malignant neoplasm of other digestive organs; C77.9 Secondary and unspecified malignant neoplasm of lymph node, unspecified; Z20.828 Contact with and (suspected) exposure to other viral communicable diseases; I50.30 Unspecified diastolic (congestive) heart failure; F41.9 Anxiety disorder, unspecified; E66.9 Obesity, unspecified; I11.0 Hypertensive heart disease with heart failure; J44.9 Chronic obstructive pulmonary disease, unspecified; E78.00 Pure hypercholesterolemia, unspecified; Z86.12 Personal history of poliomyelitis; Z87.39 Personal history of other diseases of the musculoskeletal system and connective tissue; Z99.81 Dependence on supplemental oxygen; Z88.8 Allergy status to other drugs, medicaments and biological substances; Z79.52 Long term (current) use of systemic steroids; Z79.899 Other long term (current) drug therapy; Z87.891 Personal history of nicotine dependence
CPT/HCPCS: 94640; A9270-GY; J7620-GY; U0002